=== PATIENT | female | born 1990 | race Caucasian/White ===

== ENCOUNTER 2017-02-14 05:26 | Outpatient (CLI) | payer OTHER ==
[2017-02-14 06:42] LABS: CHLORIDE,CL 109 mmol/L (98-110); SODIUM,NA 137 mmol/L (136-146)
== END 2017-02-14 06:55 | disposition home or self-care (01) ==
LOC: MW.OBCHECK 05:26 → MW.OB 05:30 → MW.OBCHECK 06:55
PROVIDERS: ATTEND Obstetrics & Gynecology
DX: R10.11 Right upper quadrant pain (principal); R51 Headache; R11.0 Nausea; Z34.03 Encounter for supervision of normal first pregnancy, third trimester
CPT/HCPCS: 36415; 59025; 80053; 81003; 84550; 85025

== ENCOUNTER 2017-02-20 21:03 | Outpatient (CLI) | payer OTHER ==
[2017-02-20] MEDS ORDERED: Sodium Chloride 0.9% 2.5 ML Syringe FLUSH PRN (21:12)
[2017-02-20] MEDS ORDERED: Sodium Chloride 0.9% 10 ML Syringe FLUSH PRN (21:12)
[2017-02-20] MEDS ORDERED: Lactated Ringers 1,000 ML IV SCH ×2 (21:15)
[2017-02-20] MEDS: Ondansetron 4 MG/2 ML SDV IVPUSH PRN (21:43)
[2017-02-20 22:01] LABS: CHLORIDE,CL 105 mmol/L (98-110); SODIUM,NA 138 mmol/L (136-146)
[2017-02-20] MEDS ORDERED: Dextrose 5%-0.9% NaCl 1,000 ML IV SCH (23:15)
[2017-02-21] MEDS ORDERED: Acetaminophen 500 MG Tab PO ONE (00:01)
[2017-02-21] MEDS ORDERED: Acetaminophen 500 MG Tab ONE (00:04)
[2017-02-21] MEDS: Ondansetron 4 MG/2 ML SDV IVPUSH PRN (00:40)
== END 2017-02-21 01:13 | disposition home or self-care (01) ==
LOC: MW.OBCHECK 21:03 → MW.OB 21:04 → MW.OBCHECK 02-21 01:13
PROVIDERS: ATTEND Obstetrics & Gynecology
DX: Z36 Encounter for antenatal screening of mother (principal)
CPT/HCPCS: 36415; 59025; 80053; 81001; 84550; 85025; 96361; 96374; 96376; A9270; J2405; J7042; J7120

== ENCOUNTER 2017-02-24 16:12 | Outpatient (CLI) | payer OTHER ==
--- NOTE | 2017-02-25 11:28 | US ---
EXAM DATE: 02/24/17 PATIENT'S AGE: 26 Patient: DAISY POLLARD Facility: [place], [place] Site . Site : 1990 Study: US OB Pelvis [id number] 5:58:10 PM Ordering Physician: Austin Ly Final Report: INDICATION: Decreased movement COMPARISON: none TECHNIQUE: Real time hartmann scale imaging of the fetus was performed as well as color Doppler and spectral Doppler analysis of the umbilical artery. Without non- stress testing. FINDINGS: Sonographic imaging demonstrates a single living intrauterine gestation. Fetus demonstrates a regular cardiac rate of 131 beats per minute. Fetus has a cephalic orientation. The amniotic fluid volume appears normal and there is a four-quadrant fluid volume index measurement of 16.5 cm. The fetus was active and demonstrated normal flexion and extension of the trunk and extremities. breathing, however, was not observed during the exam and two points were subtracted. IMPRESSION: Biophysical profile score 6 out of 8. Dictated by Brant Oleary MD @ Feb 24 2017 6:23PM (Electronic Signature) Report Signed by Proxy and Original Signed Document filed in the Medical Record. JAMAR
== END 2017-02-24 19:15 | disposition home or self-care (01) ==
LOC: MW.OBCHECK 16:12 → MW.OB 16:14 → MW.OBCHECK 19:15
PROVIDERS: ATTEND Obstetrics & Gynecology
DX: O36.8190 Decreased fetal movements, unspecified trimester, not applicable or unspecified (principal)
CPT/HCPCS: 59025; 76819; 76819-26; 81001

== ENCOUNTER 2017-03-09 20:51 | Outpatient (CLI) | payer OTHER | END 2017-03-09 22:05 | disposition home or self-care (01) | LOC: MW.OBCHECK 20:51 → MW.OB 20:53 → MW.OBCHECK 22:05 | PROVIDERS: ATTEND Obstetrics & Gynecology | DX: R03.0 Elevated blood-pressure reading, without diagnosis of hypertension (principal); R51 Headache; H53.9 Unspecified visual disturbance; Z3A.36 36 weeks gestation of pregnancy | CPT/HCPCS: 59025; 81003 ==

== ENCOUNTER 2017-03-19 08:02 | Inpatient (IN) | payer OTHER ==
[2017-03-19] MEDS ORDERED: Butorphanol 1 MG/ML SDV IVPUSH PRN (17:10)
[2017-03-19] MEDS ORDERED: Sodium Chloride 0.9% 10 ML Syringe FLUSH PRN (17:10)
[2017-03-19] MEDS ORDERED: Water For Irrigation,Sterile 1,000 ML Container IRR PRN (17:10)
[2017-03-19] MEDS ORDERED: Terbutaline 1 MG/ML SDV SUBCUT PRN (17:10)
[2017-03-19] MEDS ORDERED: Misoprostol 200 MCG Tab PO PRN (17:10)
[2017-03-19] MEDS ORDERED: Misoprostol 25 MCG (1/4 of 100 MCG) Tab VAG PRN (17:10)
[2017-03-19] MEDS ORDERED: Carboprost Tromethamine 250 MCG/1 ML Amp IM PRN (17:10)
[2017-03-19] MEDS ORDERED: Methylergonovine 0.2 MG/1 ML Amp IM PRN (17:10)
[2017-03-19] MEDS ORDERED: Nalbuphine 10 MG/1 ML Vial IVPUSH PRN (17:10)
[2017-03-19] MEDS ORDERED: Lidocaine 1% 50 ML MDV INJECT PRN (17:10)
[2017-03-19] MEDS ORDERED: Sodium Chloride 0.9% 2.5 ML Syringe FLUSH PRN (17:10)
[2017-03-19] MEDS ORDERED: Oxytocin/Lactated Ringers 30 UNIT/500 ML BAG IV SCH ×2 (17:15)
[2017-03-19] MEDS: Lactated Ringers 1,000 ML IV SCH (17:45)
[2017-03-19] MEDS: Misoprostol 25 MCG (1/4 of 100 MCG) Tab VAG SCH ×2 (18:13→22:10)
[2017-03-20] MEDS: Misoprostol 25 MCG (1/4 of 100 MCG) Tab VAG SCH (03:44)
[2017-03-20] MEDS ORDERED: Misoprostol 50 MCG (1/2 of 100 MCG) Tab VAG ONE (08:26)
[2017-03-20] MEDS: Lactated Ringers 1,000 ML IV SCH ×4 (17:29→22:49)
[2017-03-20] MEDS ORDERED: Ondansetron 4 MG/2 ML SDV IVPUSH PRN (19:38)
[2017-03-20] MEDS ORDERED: Ropivacaine 0.2% 2 MG/ML 20 ML SDV ONE (19:58)
[2017-03-20] MEDS ORDERED: fentaNYL 100 MCG/2 ML SDV ONE (19:58)
[2017-03-20] MEDS ORDERED: Ropivacaine HCl/PF 100 ML ONE (19:58)
--- NOTE | 2017-03-20 20:33 | PCM.PREANE ---
Preanesthetic Assessment - Anesthesia/Transfusion/Family Hx Anesthesia History: Prior Anesthesia Without Reaction Transfusion History: No Prior Transfusion(s) - Review of Systems Other: Reports: None - Physical Assessment Height: 5 ft 5 in Weight: 85.729 kg ASA Class: 2 Mental Status: Alert & Oriented x3 Airway Class: Mallampati = 1 Dentition: Reports: Normal Dentition Thyro-Mental Finger Breadths: 3 Mouth Opening Finger Breadths: 3 ROM/Head Extension: Full - Lab Values: Laboratory Last Values WBC 8.77 K/uL (4.0-11.0) 03/19/17 17:45 RBC 4.08 M/uL (4.30-5.90) L 03/19/17 17:45 Hgb 10.8 g/dL (12.0-16.0) L 03/19/17 17:45 Hct 34.0 % (36.0-46.0) L 03/19/17 17:45 MCV 83.3 fL (80.0-98.0) 03/19/17 17:45 MCH 26.5 pg (27.0-32.0) L 03/19/17 17:45 MCHC 31.8 g/dL (31.0-37.0) 03/19/17 17:45 RDW Std Deviation 44.7 fl (28.0-62.0) 03/19/17 17:45 RDW Coeff of Lucina 15 % (11.0-15.0) 03/19/17 17:45 Plt Count 203 K/uL (150-400) 03/19/17 17:45 MPV 10.50 fL (7.40-12.00) 03/19/17 17:45 Nucleated RBC % 0.0 /100WBC 03/19/17 17:45 Nucleated RBCs # 0 K/uL 03/19/17 17:45 Blood Type A POSITIVE 03/19/17 17:45 Antibody Screen NEGATIVE 03/19/17 17:45 - Allergies Allergies/Adverse Reactions: Allergies Allergy/AdvReac Type Severity Reaction Status Date / Time amoxicillin Allergy Hives Verified 02/25/15 09:37 - Blood Blood Available: Yes Product(s) Available: PRBC - Acknowledgements Anesthesia Type Planned: Epidural Pt an Appropriate Candidate for the Planned Anesthesia: Yes Alternatives and Risks of Anesthesia Discussed w Pt/Guardian: Yes Pt/Guardian Understands and Agrees with Anesthesia Plan: Yes PreAnesthesia Questionnaire HEENT History: Reports: Impaired 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: Dermatologic History: Reports: Eczema - Past Surgical History HEENT Surgical History: Reports: Oral surgery - SUBSTANCE USE Smoking Status *Q: Never Smoker Tobacco Use Within Last Twelve Months: No Second Hand Smoke Exposure: No Days Per Week of Alcohol Use: 1 Number of Drinks Per Day: 4 Total Drinks Per Week: 4 Recreational Drug Use History: No - HOME MEDS Home Medications: Home Meds LORazepam [Ativan] 1 tab PO Q8HR PRN 12/25/14 [History] - CURRENT (IN HOUSE) MEDS Current Meds: Current Medications Butorphanol Tartrate (Stadol) 1 mg IVPUSH Q1H PRN PRN Reason: Pain Carboprost Tromethamine (Hemabate Ds) 250 mcg IM ASDIRECTED PRN PRN Reason: Post Hemorrhage Lactated Ringer's (Ringers, Lactated) 1,000 mls @ 150 mls/hr IV ASDIRECTED KAILASH Last Admin: 03/20/17 17:29 Dose: 150 mls/hr Oxytocin/Lactated Ringer's (Pitocin In Lr 30 Units/500 Ml) 30 unit in 500 mls @ 2 mls/hr IV TITRATE KAILASH; 2 MUNITS/MIN PRN Reason: Protocol Last Titration: 03/20/17 18:07 Dose: 2 munits/min, 2 mls/hr Lidocaine HCl (Xylocaine 1%) 50 ml INJECT .ONCE PRN PRN Reason: Laceration repair Methylergonovine Maleate (Methergine) 0.2 mg IM ASDIRECTED PRN PRN Reason: Post Hemorrhage Misoprostol (Cytotec) 200 mcg PO .ONCE PRN PRN Reason: Post Hemorrhage Misoprostol (Cytotec) 25 mcg VAG .ONCE KAILASH Last Admin: 03/20/17 03:44 Dose: 25 mcg Misoprostol (Cytotec) 25 mcg VAG Q4H PRN PRN Reason: Cervical Ripening Stop: 03/20/17 21:11 Last Admin: 03/19/17 22:14 Dose: 25 mcg Ondansetron HCl (Zofran) 4 mg IVPUSH Q4H PRN PRN Reason: Nausea/Vomiting Sodium Chloride (Saline Flush) 10 ml FLUSH ASDIRECTED PRN PRN Reason: Keep Vein Open Sodium Chloride (Saline Flush) 2.5 ml FLUSH ASDIRECTED PRN PRN Reason: Keep Vein Open Sterile Water (Sterile Water For Irrigation) 1,000 ml IRR ASDIRECTED PRN PRN Reason: delivery Terbutaline Sulfate (Brethine) 0.25 mg SUBCUT ASDIRECTED PRN PRN Reason: Tacysystole Discontinued Medications Fentanyl (Sublimaze) Confirm Administered Dose 200 mcg .ROUTE .STK-MED ONE Stop: 03/20/17 19:59 Oxytocin/Lactated Ringer's (Pitocin In Lr 30 Units/500 Ml) 30 unit in 500 mls @ 999 mls/hr IV TITRATE KAILASH; 999 MUNITS/MIN PRN Reason: Protocol Stop: 03/19/17 17:46 Ropivacaine (Naropin 0.2%) Confirm Administered Dose 100 mls @ as directed .ROUTE .STK-MED ONE Stop: 03/20/17 19:59 Misoprostol (Cytotec) 50 mcg VAG ONETIME ONE Stop: 03/20/17 08:27 Nalbuphine HCl (Nubain) 10 mg IVPUSH Q1H PRN PRN Reason: Pain (severe 7-10) Stop: 03/19/17 19:11 Ropivacaine (Naropin 0.2%) Confirm Administered Dose 20 ml .ROUTE .STK-MED ONE Stop: 03/20/17 19:59
[2017-03-21] MEDS: Lactated Ringers 1,000 ML IV SCH (04:21)
[2017-03-21] MEDS ORDERED: fentaNYL 100 MCG/2 ML SDV ONE (04:41)
[2017-03-21] MEDS ORDERED: Ropivacaine HCl/PF 100 ML ONE (04:42)
[2017-03-21] MEDS ORDERED: Bupivacaine 0.5% 10 ML SDV ONE (05:30)
[2017-03-21] MEDS ORDERED: oxyCODONE 5 MG Tab PO PRN (08:37)
[2017-03-21] MEDS ORDERED: Witch Hazel Medicated Pads 40/Jar TOP PRN (08:37)
[2017-03-21] MEDS ORDERED: Bisacodyl 10 MG Supp RECTAL PRN (08:37)
[2017-03-21] MEDS ORDERED: Lanolin 100% Cream 7 GM Tube TOP PRN (08:37)
[2017-03-21] MEDS ORDERED: Benzocaine/Menthol 20%-0.5% Spray 78 GM Cannister TOP PRN (08:37)
[2017-03-21] MEDS: Ibuprofen 800 MG Tab PO PRN (16:59)
[2017-03-21] MEDS: Acetaminophen 500 MG Tab PO PRN (19:46)
[2017-03-21] MEDS: Docusate Sodium 100 MG Cap PO PRN (19:46)
--- NOTE | 2017-03-21 22:40 | PCM48HPAN ---
Post Anesthesia Note - EVALUATION WITHIN 48HRS OF ANESTHETIC Vital Signs in Normal Range: Yes Patient Participated in Evaluation: Yes Respiratory Function Stable: Yes Airway Patent: Yes Cardiovascular Function Stable: Yes Hydration Status Stable: Yes Pain Control Satisfactory: Yes Nausea and Vomiting Control Satisfactory: Yes Mental Status Recovered: Yes
[2017-03-22 07:25] VITALS: BP 123/76
--- NOTE | 2017-03-22 07:30 | PCM.PNPP ---
- General Info Date of Service: 03/22/17 Functional Status: Reports: pain controlled, tolerating diet, ambulating, urinating - Review of Systems General: Reports: No Symptoms HEENT: Reports: no symptoms Pulmonary: Reports: no symptoms Cardiovascular: Reports: No Symptoms Gastrointestinal: Reports: No symptoms Genitourinary: Reports: no symptoms Musculoskeletal: Reports: no symptoms Skin: Reports: no symptoms Neurological: Reports: No Symptoms Psychiatric: Reports: no symptoms - Patient Data Vital Signs - most recent: Last Vital Signs Temp 36.3 C 03/22/17 07:24 Pulse 87 03/22/17 07:24 Resp 16 03/22/17 07:24 BP 123/76 03/22/17 07:24 Pulse Ox 97 03/22/17 07:24 Weight - most recent: 85.729 kg Lab Results - last 24 hrs: Laboratory Results - last 24 hr 03/22/17 Range/Units 05:05 Hgb 9.1 L (12.0-16.0) g/dL Hct 28.9 L (36.0-46.0) % Med Orders - Current: Current Medications Acetaminophen (Tylenol Extra Strength) 500 mg PO Q4H PRN PRN Reason: Pain Last Admin: 03/21/17 19:46 Dose: 500 mg Benzocaine/Menthol (Dermoplast Pain Relief 20%-0.5% [place]) 78 gm TOP ASDIRECTED PRN PRN Reason: Perineal Comfort Measure Last Admin: 03/21/17 17:01 Dose: 1 spr Bisacodyl (Dulcolax) 10 mg RECTAL .ONCE PRN PRN Reason: Constipation Butorphanol Tartrate (Stadol) 1 mg IVPUSH Q1H PRN PRN Reason: Pain Carboprost Tromethamine (Hemabate Ds) 250 mcg IM ASDIRECTED PRN PRN Reason: Post Hemorrhage Docusate Sodium (Colace) 100 mg PO BID PRN PRN Reason: Constipation Last Admin: 03/21/17 19:46 Dose: 100 mg Emollient Ointment (Lansinoh Hpa) 0 gm TOP ASDIRECTED PRN PRN Reason: Sore Nipples Lactated Ringer's (Ringers, Lactated) 1,000 mls @ 150 mls/hr IV ASDIRECTED KAILASH Last Admin: 03/21/17 04:21 Dose: 150 mls/hr Oxytocin/Lactated Ringer's (Pitocin In Lr 30 Units/500 Ml) 30 unit in 500 mls @ 2 mls/hr IV TITRATE KAILASH; 2 MUNITS/MIN PRN Reason: Protocol Last Titration: 03/21/17 01:30 Dose: 10 munits/min, 10 mls/hr Ibuprofen (Motrin) 800 mg PO Q6H PRN PRN Reason: Pain Last Admin: 03/21/17 16:59 Dose: 800 mg Lidocaine HCl (Xylocaine 1%) 50 ml INJECT .ONCE PRN PRN Reason: Laceration repair Methylergonovine Maleate (Methergine) 0.2 mg IM ASDIRECTED PRN PRN Reason: Post Hemorrhage Misoprostol (Cytotec) 200 mcg PO .ONCE PRN PRN Reason: Post Hemorrhage Misoprostol (Cytotec) 25 mcg VAG .ONCE KAILASH Last Admin: 03/20/17 03:44 Dose: 25 mcg Ondansetron HCl (Zofran) 4 mg IVPUSH Q4H PRN PRN Reason: Nausea/Vomiting Oxycodone HCl (Oxycodone) 5 mg PO Q2H PRN PRN Reason: Pain Sodium Chloride (Saline Flush) 10 ml FLUSH ASDIRECTED PRN PRN Reason: Keep Vein Open Sodium Chloride (Saline Flush) 2.5 ml FLUSH ASDIRECTED PRN PRN Reason: Keep Vein Open Sterile Water (Sterile Water For Irrigation) 1,000 ml IRR ASDIRECTED PRN PRN Reason: delivery Terbutaline Sulfate (Brethine) 0.25 mg SUBCUT ASDIRECTED PRN PRN Reason: Tacysystole Witch Ayla (Tucks) 1 pad TOP ASDIRECTED PRN PRN Reason: comfort care Discontinued Medications Bupivacaine HCl (Sensorcaine-Mpf 0.5%) Confirm Administered Dose 10 ml .ROUTE .STK-MED ONE Stop: 03/21/17 05:31 Fentanyl (Sublimaze) Confirm Administered Dose 200 mcg .ROUTE .STK-MED ONE Stop: 03/20/17 19:59 Fentanyl (Sublimaze) Confirm Administered Dose 200 mcg .ROUTE .STK-MED ONE Stop: 03/21/17 04:42 Oxytocin/Lactated Ringer's (Pitocin In Lr 30 Units/500 Ml) 30 unit in 500 mls @ 999 mls/hr IV TITRATE KAILASH; 999 MUNITS/MIN PRN Reason: Protocol Stop: 03/19/17 17:46 Ropivacaine (Naropin 0.2%) Confirm Administered Dose 100 mls @ as directed .ROUTE .STK-MED ONE Stop: 03/20/17 19:59 Ropivacaine (Naropin 0.2%) Confirm Administered Dose 100 mls @ as directed .ROUTE .STK-MED ONE Stop: 03/21/17 04:43 Misoprostol (Cytotec) 25 mcg VAG Q4H PRN PRN Reason: Cervical Ripening Stop: 03/20/17 21:11 Last Admin: 03/19/17 22:14 Dose: 25 mcg Misoprostol (Cytotec) 50 mcg VAG ONETIME ONE Stop: 03/20/17 08:27 Nalbuphine HCl (Nubain) 10 mg IVPUSH Q1H PRN PRN Reason: Pain (severe 7-10) Stop: 03/19/17 19:11 Ropivacaine (Naropin 0.2%) Confirm Administered Dose 20 ml .ROUTE .STK-MED ONE Stop: 03/20/17 19:59 - Interaction Infant Disposition, : to Nursery Feeding: Attempted ; Nursed Fair/Poor Support Person: - Recovery Exam Fundal Tone: Firm Fundal Level: 1 Fingerbreadths Below Umbilicus Fundal Placement: Midline Lochia Amount: Small Lochia Color: Rubra/Red Perineum Description: Intact, Minimal Bruising/Swelling Episiotomy/Laceration: None Bladder Status: Voiding Urinary Elimination: Voided - Exam General: alert, oriented HEENT: Pupils equal Neck: supple Lungs: Normal respiratory effort Abdomen: soft, no tenderness, no distension Extremities: No: no edema (1+ equal bilaterally, no Homans sign.) Skin: warm, dry, intact Wound/Incisions: healing well Neurological: no new focal deficit Psy/Mental Status: alert, normal affect, normal mood - Problem List & Annotations (1) Vaginal delivery SNOMED Code(s): 316208521 Code(s): O80 - ENCOUNTER FOR FULL-TERM UNCOMPLICATED DELIVERY Status: Acute Current Visit: Yes - Problem List Review Problem List Initiated/Reviewed/Updated: Yes - Assessment Assessment:: PPD#1 after , stable, minimal lochia, and pumping. No complaints. - Plan Plan:: Dismiss to home today. Discharge instructions reviewed.
[2017-03-22] MEDS: Ibuprofen 800 MG Tab PO PRN (09:48)
[2017-03-22] MEDS: Docusate Sodium 100 MG Cap PO PRN (09:50)
[2017-03-22] MEDS: Acetaminophen 500 MG Tab PO PRN (11:51)
--- NOTE | 2017-03-25 06:32 | OR ---
SURGEON: Aliyah Avila DATE OF PROCEDURE: 03/21/2017 BRIEF PRE-DELIVERY HISTORY: This is a 26-year-old, G1, P0, presents to Labor and Delivery on March 19, 2017, for induction of labor for gestational hypertension with neurologic features though the patient did not have any significant proteinuria in excess of greater than or equal to 300 mg per 24 hour. The patient was 38 weeks and 2 days on admission, initially. The patient had previously been taken out of work the week prior secondary to concerns of swelling, headaches, hypertension that was already noted, but also headaches with visual changes significant for scotoma and just inherently not feeling well. 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 Upon admission to Labor and Delivery, the patient was noted to have mild range hypertension, no severe range blood pressures were noted. The patient had occasional headaches, but otherwise the patient was doing fine. The patient had a category 1 tracing. The patient's cervix on admission was closed, thick, and high. The patient was started on vaginal misoprostol 25 mcg every 3 hours. For a third dose, the patient to receive 50 mcg of vaginal misoprostol followed by one further dose of vaginal misoprostol at 25 mcg. The patient was noted to be selwyn every 2 minutes. The patient eventually underwent mechanical dilation with a Cook catheter balloon. The patient shortly thereafter became very uncomfortable and desired to have an epidural and epidural was placed. The patient was examined afterwards. The patient was only noted to be 3 cm. The Cook catheter balloon was removed. Amniotomy was performed for clear fluid and Pitocin was started. Pitocin was titrated to contractions of every 2 minutes. Several hours later, the patient was then re- examined and found to be only 4 cm, so an intrauterine pressure catheter was placed to know the strength of the contractions. Few hours later, the patient was examined by nursing staff and found to be 8 cm dilated. A few hours after that was re-examined and found to be completely dilated and +1 station. Of note, throughout the labor process, the patient had category 1 fluctuating to category 2, and back up to category 1 status. When the patient started maternal expulsive efforts after being noted to be at +2 station, the patient did have a category 2 tracing as it was significant for late decelerations. PREOPERATIVE DIAGNOSES: 1. Intrauterine at 38 weeks and 4 days. 2. Group B streptococcus negative. 3. Induction of labor for gestational hypertension with neurologic changes. POSTOPERATIVE DIAGNOSES: 1. Intrauterine at 38 weeks and 4 days. 2. Group B streptococcus negative. 3. Delivered status. 4. Left vaginal sidewall laceration. PROCEDURE PERFORMED: Spontaneous-assisted vaginal delivery. ANESTHESIA: Epidural. ESTIMATED BLOOD LOSS: 125 mL. FINDINGS: Viable female in vertex presentation with score of 6 and 9 at 1 and 5 minutes respectively and weight of 3170 g. Normal intact placenta with 3- vessel cord. Nuchal x2 was reduced at the perineum. Intact perineum. SPECIMEN REMOVED: Placenta. CONDITION: Postoperatively, the patient and tolerated the procedure well. COMPLICATIONS: None known. DESCRIPTION OF PROCEDURE: This female, under epidural anesthesia delivered a viable female infant with score of 6 and 9 at 1 and 5 minutes respectively and weight of 3170 g. Delivery was via spontaneous assisted vaginal delivery with in vertex presentation. Upon delivery of in vertex, the neck was checked and there was a nuchal to be reduced followed by second nuchal cord. With gentle downward traction, the anterior shoulder was delivered followed by the body. The was bulb suctioned at delivery and placed directly on mom's abdomen at request, but then quickly taken over to the baby warmer for supplemental oxygen. After delivery of , cord gas and cord blood were collected and sent for analysis after clamping off cord. Afterwards IV Pitocin was given as uterotonic to prevent excessive maternal blood loss and to help expel the placenta. After signs of placental separation of being a gush of blood, the fundal massage was completed along with traction on the umbilical cord and a normal intact placenta with 3-vessel cord was delivered. After delivery of infant and placenta, the vagina, perineum, and rectum were explored. The patient had a small right vaginal sidewall laceration and the patient had a longer approximately 3.5 cm more superficial vaginal wall laceration on the left. Both lacerations were noted to be hemostatic and easily fell together without tenting the vaginal vault. The patient's perineum was noted to be intact. As these areas were not bleeding, there was no need for sutures. The lower uterine segment and vagina were cleared of all clots and debris. The patient was cleansed, pads were changed, the bed was returned to functional status. The patient and tolerated the procedure well. Sponge, lap, needle, and instrument counts were correct. ESTRELLA / SG /[id number] MTDD
== END 2017-03-22 14:15 | disposition home or self-care (01) | DRG 775 ==
LOC: MW.OB 08:02 → OBSVTOIN 03-21 08:02 → MW.OB 03-21 14:01
PROVIDERS: ADMIT Obstetrics & Gynecology; ATTEND Obstetrics & Gynecology
PROC: 10E0XZZ Delivery of Products of Conception, External Approach (ICD-10-PCS; principal; 2017-03-21)
PROC: 3E0P7GC Introduction of Other Therapeutic Substance into Female Reproductive, Via Natural or Artificial Opening (ICD-10-PCS; 2017-03-21)
PROC: 10907ZC Drainage of Amniotic Fluid, Therapeutic from Products of Conception, Via Natural or Artificial Opening (ICD-10-PCS; 2017-03-21)
DX: O13.4 Gestational [pregnancy-induced] hypertension without significant proteinuria, complicating childbirth (principal); O69.1XX0 Labor and delivery complicated by cord around neck, with compression, not applicable or unspecified; Z3A.38 38 weeks gestation of pregnancy; Z37.0 Single live birth
CPT/HCPCS: 36415; 59025; 59200; 85014; 85018; 85027; 86850; 86900; 86901; A9270-GY; J2795; J3010; J7120

== ENCOUNTER 2017-03-23 23:22 | Emergency (ER) | payer OTHER ==
[2017-03-23] MEDS ORDERED: Sodium Chloride 0.9% 10 ML Syringe FLUSH PRN (23:31)
[2017-03-23] MEDS ORDERED: Sodium Chloride 0.9% 1,000 ML IV ONE (23:31)
[2017-03-23] MEDS ORDERED: Sodium Chloride 0.9% 2.5 ML Syringe FLUSH PRN (23:31)
--- NOTE | 2017-03-23 23:37 | EDM.PDOC ---
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 She denies urinary symptoms denies trauma Review of systems: As per history of present illness and below otherwise all systems reviewed and negative. Past medical history: As per history of present illness and as reviewed below otherwise noncontributory. Surgical history: As per history of present illness and as reviewed below otherwise noncontributory. Social history: No reported history of drug or alcohol abuse. Family history: As per history of present illness and as reviewed below otherwise noncontributory. Physical exam: HEENT: Atraumatic, normocephalic, pupils reactive, negative for conjunctival pallor or scleral icterus, mucous membranes moist, throat clear, neck supple, nontender, trachea midline. Lungs: Clear to auscultation, breath sounds equal bilaterally, chest nontender. Heart: S1S2, regular, negative for clicks, rubs, or JVD. Abdomen: Soft, nondistended, nontender. Negative for masses or hepatosplenomegaly. Negative for costovertebral tenderness. Pelvis: Stable nontender. Genitourinary: Deferred. Rectal: Deferred. Extremities: Atraumatic, negative for cords or calf pain. Neurovascular unremarkable. Neuro: Awake, alert, oriented. Cranial nerves II through XII unremarkable. Cerebellum unremarkable. Motor and sensory unremarkable throughout. Exam nonfocal. Back: No vertebral body or point tenderness no erythema no warmth no pain Diagnostics: CBC CMP CPK EKG chest x-ray blood culture x2 UA urine culture lactic acid Therapeutics: saline 1 L bolus Impression: #1 history of fever #2 2 days #3 bilateral thigh pain Definitive disposition and diagnosis as appropriate pending reevaluation and review of above. - Related Data Allergies Allergy/AdvReac Type Severity Reaction Status Date / Time amoxicillin Allergy Hives Verified 03/23/17 23:40 Home Meds: Home Meds . 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: Dermatologic History: Reports: Eczema - Past Surgical History HEENT Surgical History: Reports: Oral surgery Social & Family History - Family History HEENT: Reports: Glaucoma, Hearing impairment, Impaired vision Cardiac: Reports: Hypertension, SD OBGYN: Reports: Neurological: Reports: MS Endocrine/Metabolic: Reports: Diabetes, type II Oncologic: Reports: Colon - Tobacco Use Smoking Status *Q: Never Smoker Second Hand Smoke Exposure: No - Caffeine Use Caffeine Use: Reports: Coffee - Alcohol Use Days Per Week of Alcohol Use: 1 Number of Drinks Per Day: 4 Total Drinks Per Week: 4 - Recreational Drug Use Recreational Drug Use: No ED ROS GENERAL - Review of Systems Review Of Systems: ROS reveals no pertinent complaints other than HPI. ED EXAM, GENERAL - Physical Exam Exam: See Below (See dictation) Course - Vital Signs Last Recorded V/S: Last Vital Signs Temp 36.7 C 03/24/17 03:28 Pulse 155 H 03/24/17 03:28 Resp 16 03/24/17 03:28 BP 114/47 L 03/24/17 03:28 Pulse Ox 97 03/24/17 03:28 - Orders/Labs/Meds Orders: Active Orders 24 hr Category Date Time Status Cardiac Monitoring [RC] . DIRECTED Care 03/23/17 23:30 Active EKG Documentation Completion [RC] STAT Care 03/23/17 23:30 Active Pulse Oximetry [RC] ASDIRECTED Care 03/23/17 23:30 Active Chest 2V [CR] Stat Exams 03/23/17 23:31 Taken CULTURE BLOOD [BC] Stat Lab 03/23/17 23:45 Results CULTURE URINE [RM] Stat Lab 03/24/17 01:50 Received Sodium Chloride 0.9% [Saline Flush] Med 03/23/17 23:31 Active 10 ml FLUSH ASDIRECTED PRN Sodium Chloride 0.9% [Saline Flush] Med 03/23/17 23:31 Active 2.5 ml FLUSH ASDIRECTED PRN Blood Culture x2 Reflex Set [OM.PC] Stat Oth 03/23/17 23:30 Ordered Saline Lock Insert [OM.PC] Stat Ot 03/23/17 23:30 Ordered Medication Orders Sodium Chloride (Saline Flush) 10 ml FLUSH ASDIRECTED PRN PRN Reason: Keep Vein Open Last Admin: 03/24/17 01:47 Dose: 10 ml Sodium Chloride (Saline Flush) 2.5 ml FLUSH ASDIRECTED PRN PRN Reason: Keep Vein Open Last Admin: 03/24/17 01:47 Dose: 2.5 ml Labs: Laboratory Tests 03/23/17 03/23/17 03/23/17 Range/Units 23:45 23:45 23:45 WBC 6.25 (4.0-11.0) K/uL RBC 3.66 L (4.30-5.90) M/uL Hgb 9.6 L (12.0-16.0) g/dL Hct 30.0 L (36.0-46.0) % MCV 82.0 (80.0-98.0) fL MCH 26.2 L (27.0-32.0) pg MCHC 32.0 (31.0-37.0) g/dL RDW Std Deviation 45.3 (28.0-62.0) fl RDW Coeff of Lucina 15 (11.0-15.0) % Plt Count 135 L (150-400) K/uL MPV 9.50 (7.40-12.00) fL Add Manual Diff YES Neutrophils % (Manual) 70 (48.0-80.0) % Band Neutrophils % 23 % Lymphocytes % (Manual) 4 L (16.0-40.0) % Monocytes % (Manual) 1 (0.0-15.0) % Metamyelocytes % 2 % Nucleated RBC % 0.0 /100WBC Absolute Seg Neuts 4.4 Band Neutrophils # 1.4 Lymphocytes # (Manual) 0.3 Monocytes # (Manual) 0.1 Absolute Metamyelocyte 0.1 Nucleated RBCs # 0 K/uL INR 1.23 H (0.86-1.11) Lactate 2.2 H (0.20-2.00) mmol/L Sodium (136-146) mmol/L Potassium (3.5-5.1) mmol/L Chloride (98-110) mmol/L Carbon Dioxide (21-31) mmol/L BUN (6.0-23.0) mg/dL Creatinine (0.6-1.5) mg/dL Est Cr Clr Drug Dosing Estimated GFR (MDRD) ml/min Glucose (60-110) mg/dL Calcium (8.8-10.8) mg/dL Total Bilirubin (0.1-1.5) mg/dL AST (5-40) IU/L ALT (8-54) IU/L Alkaline Phosphatase (40-150) Creatine Kinase (9-236) IU/L Total Protein (6.0-8.0) g/dL Albumin (3.5-5.0) g/dL Globulin (2.0-3.5) g/dL Albumin/Globulin Ratio (1.3-2.8) Urine Color Urine Appearance Urine pH (5.0-8.0) Ur Specific [place] (1.001-1.035) Urine Protein (NEGATIVE) mg/dL Urine Glucose (UA) (NEGATIVE) mg/dL Urine Ketones (NEGATIVE) mg/dL Urine Occult Blood (NEGATIVE) Urine Nitrite (NEGATIVE) Urine Bilirubin (NEGATIVE) Urine Ictotest Urine Urobilinogen (<2.0) EU/dL Ur Leukocyte Esterase (NEGATIVE) Urine RBC (0-2/HPF) Urine WBC (0-5/HPF) Ur Epithelial Cells (NONE-FEW) Urine Bacteria (NEGATIVE) 03/23/17 03/24/17 Range/Units 23:45 01:50 WBC (4.0-11.0) K/uL RBC (4.30-5.90) M/uL Hgb (12.0-16.0) g/dL Hct (36.0-46.0) % MCV (80.0-98.0) fL MCH (27.0-32.0) pg MCHC (31.0-37.0) g/dL RDW Std Deviation (28.0-62.0) fl RDW Coeff of Lucina (11.0-15.0) % Plt Count (150-400) K/uL MPV (7.40-12.00) fL Add Manual Diff Neutrophils % (Manual) (48.0-80.0) % Band Neutrophils % % Lymphocytes % (Manual) (16.0-40.0) % Monocytes % (Manual) (0.0-15.0) % Metamyelocytes % % Nucleated RBC % /100WBC Absolute Seg Neuts Band Neutrophils # Lymphocytes # (Manual) Monocytes # (Manual) Absolute Metamyelocyte Nucleated RBCs # K/uL INR (0.86-1.11) Lactate (0.20-2.00) mmol/L Sodium 138 (136-146) mmol/L Potassium 3.5 (3.5-5.1) mmol/L Chloride 107 (98-110) mmol/L Carbon Dioxide 19 L (21-31) mmol/L BUN 14 (6.0-23.0) mg/dL Creatinine 0.7 (0.6-1.5) mg/dL Est Cr Clr Drug Dosing TNP Estimated GFR (MDRD) > 60.0 ml/min Glucose 100 (60-110) mg/dL Calcium 8.2 L (8.8-10.8) mg/dL Total Bilirubin 1.0 (0.1-1.5) mg/dL AST 147 H (5-40) IU/L ALT 92 H (8-54) IU/L Alkaline Phosphatase 76 (40-150) Creatine Kinase 105 (9-236) IU/L Total Protein 5.6 L (6.0-8.0) g/dL Albumin 2.8 L (3.5-5.0) g/dL Globulin 2.8 (2.0-3.5) g/dL Albumin/Globulin Ratio 1.0 L (1.3-2.8) Urine Color DARK YELLOW Urine Appearance SLT CLOUDY Urine pH 5.5 (5.0-8.0) Ur Specific [place] 1.020 (1.001-1.035) Urine Protein 100 (NEGATIVE) mg/dL Urine Glucose (UA) NEGATIVE (NEGATIVE) mg/dL Urine Ketones NEGATIVE (NEGATIVE) mg/dL Urine Occult Blood LARGE H (NEGATIVE) Urine Nitrite NEGATIVE (NEGATIVE) Urine Bilirubin SMALL H (NEGATIVE) Urine Ictotest NEGATIVE Urine Urobilinogen 0.2 (<2.0) EU/dL Ur Leukocyte Esterase MODERATE (NEGATIVE) Urine RBC 20-25 (0-2/HPF) Urine WBC 60-70 (0-5/HPF) Ur Epithelial Cells FEW (NONE-FEW) Urine Bacteria 1+ H (NEGATIVE) Meds: Medications Generic Name Dose Route Start Last Admin Trade Name Freq PRN Reason Stop Dose Admin Sodium Chloride 10 ml 03/23/17 23:31 03/24/17 01:47 Saline Flush FLUSH 10 ml ASDIRECTED PRN Administration Keep Vein Open Sodium Chloride 2.5 ml 03/23/17 23:31 03/24/17 01:47 Saline Flush FLUSH 2.5 ml ASDIRECTED PRN Administration Keep Vein Open Discontinued Medications Generic Name Dose Route Start Last Admin Trade Name Alierza PRN Reason Stop Dose Admin Sodium Chloride 1,000 mls @ 999 mls/hr 03/23/17 23:31 03/23/17 23:51 Normal Saline IV 03/24/17 00:31 999 mls/hr STAT ONE Administration Sodium Chloride 1,000 mls @ 999 mls/hr 03/24/17 01:46 03/24/17 01:48 Normal Saline IV 03/24/17 02:46 999 mls/hr STAT ONE Administration Departure - Departure Time of Disposition: 03:35 Disposition: Home, Self-Care 01 Condition: good Clinical Impression: Myalgia, UTI (urinary tract infection) Referrals: Aliyah Avila MD [Primary Care Provider] - Forms: ED Department Discharge Additional Instructions: The following information is given to patients seen in the emergency department who are being discharged to home. This information is to outline your options for follow-up care. We provide all patients seen in our emergency department with a follow-up referral. The need for follow-up, as well as the timing and circumstances, are variable depending upon the specifics of your emergency department visit. If you don't have a primary care physician on staff, we will provide you with a referral. We always advise you to contact your personal physician following an emergency department visit to inform them of the circumstance of the visit and for follow-up with them and/or the need for any referrals to a consulting specialist. The emergency department will also refer you to a specialist when appropriate. This referral assures that you have the opportunity for followup care with a specialist. All of these measure are taken in an effort to provide you with optimal care, which includes your followup. Under all circumstances we always encourage you to contact your private physician who remains a resource for coordinating your care. When calling for followup care, please make the office aware that this follow-up is from your recent emergency room visit. If for any reason you are refused follow-up, please contact the [facility] emergency department at and asked to speak to the emergency department charge nurse. 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 DIRECTED EKG Documentation Completion [RC] STAT Pulse Oximetry [RC] ASDIRECTED Blood Culture x2 Reflex Set [OM.PC] Stat Saline Lock Insert [OM.PC] Stat 03/23/17 23:31 Chest 2V [CR] Stat Sodium Chloride 0.9% [Saline Flush] 10 ml FLUSH ASDIRECTED PRN Sodium Chloride 0.9% [Saline Flush] 2.5 ml FLUSH ASDIRECTED PRN 03/23/17 23:45 CULTURE BLOOD [BC] Stat 03/24/17 01:50 CULTURE URINE [RM] Stat - Assessment/Plan Last 24 Hours: My Active Orders 03/23/17 23:30 Cardiac Monitoring [RC] . DIRECTED EKG Documentation Completion [RC] STAT Pulse Oximetry [RC] ASDIRECTED Blood Culture x2 Reflex Set [OM.PC] Stat Saline Lock Insert [OM.PC] Stat 03/23/17 23:31 Chest 2V [CR] Stat Sodium Chloride 0.9% [Saline Flush] 10 ml FLUSH ASDIRECTED PRN Sodium Chloride 0.9% [Saline Flush] 2.5 ml FLUSH ASDIRECTED PRN 03/23/17 23:45 CULTURE BLOOD [BC] Stat 03/24/17 01:50 CULTURE URINE [RM] Stat
[2017-03-24 00:30] LABS: CHLORIDE,CL 107 mmol/L (98-110); SODIUM,NA 138 mmol/L (136-146)
[2017-03-24] MEDS ORDERED: Sodium Chloride 0.9% 1,000 ML IV ONE (01:46)
[2017-03-24 03:28] VITALS: BP 114/47
--- NOTE | 2017-03-24 14:04 | CR ---
EXAM DATE: 03/23/17 PATIENT'S AGE: 26 Patient: DAISY POLLARD Facility: [place], [place] Site . Site : 1990 Study: XRay Chest [id number]/1/2017 12:22:04 AM Ordering Physician: Hannah Guo Final Report: HISTORY: Centralized chest tightness. FINDINGS: PA and lateral chest radiograph demonstrates a normal cardiac silhouette. Pulmonary vasculature is free cephalization. There are low lung volumes present. No lobar consolidation or pleural effusion is seen. Bony structures are normal for age. IMPRESSION: No acute cardiopulmonary disease. Dictated by Shannan Borrero MD @ 03/24/2017 12:24:01 AM Dictated by: Shannan Borrero MD @ 03/24/2017 00:24:06 (Electronic Signature) Report Signed by Proxy. [facility]
== END 2017-03-24 03:47 | disposition home or self-care (01) ==
LOC: MW.ED 23:22
DX: O86.20 Urinary tract infection following delivery, unspecified (principal); M79.651 Pain in right thigh; M79.652 Pain in left thigh; Z88.1 Allergy status to other antibiotic agents; Z98.890 Other specified postprocedural states
CPT/HCPCS: 71020; 80053; 81001; 82550; 83605; 85025; 85610; 87040; 87077; 87086; 87186; 87804; 93005; 96360; 96361; 99284; J7040; 99283

== ENCOUNTER 2017-03-24 13:25 | Inpatient (IN) | payer OTHER ==
[2017-03-24] MEDS ORDERED: Sodium Chloride 0.9% 10 ML Syringe FLUSH PRN (13:33)
[2017-03-24] MEDS ORDERED: Sodium Chloride 0.9% 1,000 ML IV ONE ×2 (13:33→13:47)
[2017-03-24] MEDS ORDERED: Sodium Chloride 0.9% 2.5 ML Syringe FLUSH PRN (13:33)
--- NOTE | 2017-03-24 13:38 | EDM.PDOC ---
[id number] AMBULANCE Time Seen by Provider: 03/24/17 13:32 Source of Information: Reports: Patient History Limitations: Reports: No Limitations - History of Present Illness INITIAL COMMENTS - FREE TEXT/NARRATIVE: HISTORY AND PHYSICAL: History of present illness: [26-year-old female 3 days status post spontaneous vaginal delivery without complication now presents emergency department complaining of feeling ill. Recent fevers. Patient was seen overnight and was diagnosed with urinary tract infection and prescribed outpatient antibiotics. Blood cultures were drawn last night and there result of the Gram stain this morning was both cultures positive for gram-positive cocci in chains. She was called at home and instructed to return to the emergency department for reevaluation and further treatment as needed. Patient was unable to fill her prescription and felt more ill and generally weak this morning. Patient denies pelvic pain or any change in her mild bleeding. She has no abnormal vaginal discharge. Patient does not have a cough or productive cough. No chest pain or pleuritic pain. Denies shortness of breath. Denies skin lesions. Tachycardic on arrival in ED. Patient denies any sore throat or recent strep diagnosis. Review of systems: As per history of present illness and below otherwise all systems reviewed and negative. Past medical history: As per history of present illness and as reviewed below otherwise noncontributory. Surgical history: As per history of present illness and as reviewed below otherwise noncontributory. Social history: No reported history of drug or alcohol abuse. Family history: As per history of present illness and as reviewed below otherwise noncontributory. Physical exam: HEENT: Atraumatic, normocephalic, pupils reactive, negative for conjunctival pallor or scleral icterus, mucous membranes moist, throat clear, neck supple, nontender, trachea midline. Lungs: Clear to auscultation, breath sounds equal bilaterally, chest nontender. No wheezes rales rubs or rhonchi. Normal pulse ox on room air Heart: S1S2, tachycardia at 151, regular, negative for clicks, rubs, or JVD. Abdomen: Soft, nondistended, positive right CVA tenderness. Mild right upper quadrant tenderness, no guarding or rebound, negative Dumont's sign. Negative for masses or hepatosplenomegaly. Negative for left costovertebral tenderness. Pelvis: Stable . Appropriate minimal pelvic tenderness given state of several days Genitourinary: Deferred. Rectal: Deferred. Extremities: Atraumatic, negative for cords or calf pain. Neurovascular unremarkable. Neuro: Awake, alert, oriented. Cranial nerves grossly unremarkable. Cerebellum unremarkable. Motor and sensory unremarkable throughout. Exam nonfocal. Diagnostics: [EKG normal sinus tachycardia at 147 normal axis no STEMI nonspecific ST findings ] Portable chest x-ray interpreted by me , no acute disease, report reviewed CBC with toxic granulocytes consistent with sepsis. Lactate elevated. Patient with severe metabolic acidosis. Therapeutics: [IV fluids administered, blood cultures and lactate drawn, broad-spectrum antibiotic coverage initiated for coverage of presumed sirs/ sepsis Impression: [] Plan: [26-year-old female tachycardic with recent positive UA and clinical evidence suggesting Sirs and sepsis. Gram stain and blood cultures from last night For gram-positive cocci in chains. Recent fevers per patient. Patient with no evidence of streptococcal pharyngitis clinically. Patient states she's had no pelvic pain except for her mild soreness which has been improving. Urinalysis from last p.m. appears positive for UTI. Urinalysis and Urine culture pending from straight catheter specimen today. Will CT to rule out infected stone given the patient is critically ill with possible pyelonephritis. After initial evaluation, case discussed with confectionery laboratory manager for Dr. Avila (the patient's [employer] doctor.) She is aware of history and findings and agrees with inpatient admission to the ICU to the service of the hospitalist and they will provide [employer] consultation. Patient's pulse initially improved with fluids. Administration of broad-spectrum antibiotic coverage in progress. Case discussed with Dr. Torres the hospitalist confectionery laboratory manager who is aware of history and findings of patient's critical illness and accepts patient for inpatient admission to the ICU. On reevaluation prior to transfer to floor patient with persistent tachycardia. She states she feels slightly improved however she is evolving worsening edema the hands and feet. IV fluids stopped. She denies any new symptoms. Straight catheter urinalysis results returned negative for infection. Results reevaluated given that presumed urinary tract infection was not present. Case discussed again with , [employer]. We reviewed all results again she is aware of my concern regarding possible evolving cardiomyopathy and potential for heellp syndrome. She clarified that cardiology has admitted patients to our ICU with cardiomyopathy and provided evaluation and care for them here so this diagnosis would not preclude patient' s admission to our ICU. Patient has not been hypertensive and has no proteinuria but mom, who is now present, commented that she did have some gestational hypertension as well as some proteinuria during , tho she was never diagnosed with preeclampsia. Patient transported to the ICU bed during this conversation. Dr. Polanco has communicated details regarding the patient's critical illness to Dr. Avila who will provide emergent consultation and see the patient in the ICU. Case also discussed again with Dr. Torres the hospitalist. He was also made aware of these findings and he will place stat consult to cardiology, Dr. Eugenio Torres is present in the ICU with the patient, he is aware of my concerns regarding her critical illness and all the results obtained so far and he has assumed care for further treatment Definitive disposition and diagnosis as appropriate pending reevaluation and review of above. Critical care 73 minutes abd Pain Score (Numeric/FACES): 8 - Related Data Allergies Allergy/AdvReac Type Severity Reaction Status Date / Time amoxicillin Allergy Hives Verified 03/23/17 23:40 sulfamethoxazole Allergy Vomiting Verified 03/24/17 16:55 [From Bactrim] trimethoprim [From Bactrim] Allergy Vomiting Verified 03/24/17 16:55 Home Meds: Home Meds . [No Known Home Meds] 03/23/17 [History] Past Medical History - Past Health History Medical/Surgical History: Denies Medical/Surgical History HEENT History: Reports: Impaired Vision [employer] History: Reports: Dermatologic History: Reports: Eczema - Past Surgical History HEENT Surgical History: Reports: Oral Surgery Social & Family History - Family History Family Medical History: Noncontributory HEENT: Reports: Glaucoma, Hearing Impairment, Impaired Vision Cardiac: Reports: Hypertension, [place] OBGYN: Reports: Neurological: Reports: [place] Endocrine/Metabolic: Reports: Diabetes, type II Oncologic: Reports: Colon - Tobacco Use Smoking Status *Q: Never Smoker Second Hand Smoke Exposure: No - Caffeine Use Caffeine Use: Reports: Coffee - Alcohol Use Days Per Week of Alcohol Use: 1 Number of Drinks Per Day: 4 Total Drinks Per Week: 4 - Recreational Drug Use Recreational Drug Use: No ED ROS GENERAL - Review of Systems Review Of Systems: See Below (History of present illness) ED EXAM, GENERAL - Physical Exam Exam: See Below (History of present illness) Course - Vital Signs Last Recorded V/S: Last Vital Signs Temp 38.3 C H 03/25/17 21:28 Pulse 166 H 03/25/17 17:38 Resp 27 H 03/25/17 21:28 BP 113/65 03/25/17 21:28 Pulse Ox 92 L 03/25/17 21:00 - Orders/Labs/Meds Labs: Laboratory Tests 03/24/17 03/24/17 03/24/17 Range/Units 13:40 14:00 14:00 WBC 5.66 (4.0-11.0) K/uL RBC 3.49 L (4.30-5.90) M/uL Hgb 9.1 L (12.0-16.0) g/dL Hct 28.4 L (36.0-46.0) % MCV 81.4 (80.0-98.0) fL MCH 26.1 L (27.0-32.0) pg MCHC 32.0 (31.0-37.0) g/dL RDW Std Deviation 46.6 (28.0-62.0) fl RDW Coeff of Lucina 16 H (11.0-15.0) % Plt Count 133 L (150-400) K/uL MPV 10.00 (7.40-12.00) fL Add Manual Diff YES Neutrophils % (Manual) 56 (48.0-80.0) % Band Neutrophils % 29 % Lymphocytes % (Manual) 10 L (16.0-40.0) % Monocytes % (Manual) 3 (0.0-15.0) % Eosinophils % (Manual) 1 (0.0-7.0) % Basophils % (Manual) 1 (0.0-1.5) % Nucleated RBC % 0.0 /100WBC Absolute Seg Neuts 3.2 Band Neutrophils # 1.6 Lymphocytes # (Manual) 0.6 Monocytes # (Manual) 0.2 Eosinophils # (Manual) 0.1 Basophils # (Manual) 0 Nucleated RBCs # 0 K/uL Toxic Granulation 2+ MODERATE Lactate (0.20-2.00) mmol/L Sodium 140 (136-146) mmol/L Potassium 3.6 (3.5-5.1) mmol/L Chloride 112 H (98-110) mmol/L Carbon Dioxide 12 L (21-31) mmol/L BUN 14 (6.0-23.0) mg/dL Creatinine 0.8 (0.6-1.5) mg/dL Est Cr Clr Drug Dosing 94.90 mL/min Estimated GFR (MDRD) > 60.0 ml/min Glucose 63 (60-110) mg/dL Calcium 8.0 L (8.8-10.8) mg/dL Total Bilirubin 1.1 (0.1-1.5) mg/dL AST 143 H (5-40) IU/L ALT 98 H (8-54) IU/L Alkaline Phosphatase 87 (40-150) Troponin I (0.0-0.29) NG/ML Total Protein 5.0 L (6.0-8.0) g/dL Albumin 2.3 L (3.5-5.0) g/dL Globulin 2.7 (2.0-3.5) g/dL Albumin/Globulin Ratio 0.9 L (1.3-2.8) Urine Color Cancelled Urine Appearance Cancelled Urine pH Cancelled Ur Specific [place] Cancelled Urine Protein Cancelled Urine Glucose (UA) Cancelled Urine Ketones Cancelled Urine Occult Blood Cancelled Urine Nitrite Cancelled Urine Bilirubin Cancelled Urine Ictotest Cancelled Urine Urobilinogen Cancelled Ur Leukocyte Esterase Cancelled Urine RBC Cancelled Urine WBC Cancelled Ur Epithelial Cells Cancelled Ur Squamous Epith Cells Cancelled Ur Renal Epithelial Cell Cancelled Calcium Oxalate Crystal Cancelled Uric Acid Crystals Cancelled Triple Phos Crystals Cancelled Other Crystals Cancelled Amorphous Sediment Cancelled Urine Bacteria Cancelled Hyaline Casts Cancelled Fine Granular Casts Cancelled Coarse Granular Casts Cancelled Waxy Casts Cancelled RBC Casts Cancelled WBC Casts Cancelled Urine Mucus Cancelled Urine Other Cancelled Urine Trichomonas Cancelled Urine Yeast Cancelled Urine Sperm Cancelled Ur Oval Fat Bodies Cancelled Urinalysis Comment Cancelled 03/24/17 03/24/17 Range/Units 14:00 14:00 WBC (4.0-11.0) K/uL RBC (4.30-5.90) M/uL Hgb (12.0-16.0) g/dL Hct (36.0-46.0) % MCV (80.0-98.0) fL MCH (27.0-32.0) pg MCHC (31.0-37.0) g/dL RDW Std Deviation (28.0-62.0) fl RDW Coeff of Lucina (11.0-15.0) % Plt Count (150-400) K/uL MPV (7.40-12.00) fL Add Manual Diff Neutrophils % (Manual) (48.0-80.0) % Band Neutrophils % % Lymphocytes % (Manual) (16.0-40.0) % Monocytes % (Manual) (0.0-15.0) % Eosinophils % (Manual) (0.0-7.0) % Basophils % (Manual) (0.0-1.5) % Nucleated RBC % /100WBC Absolute Seg Neuts Band Neutrophils # Lymphocytes # (Manual) Monocytes # (Manual) Eosinophils # (Manual) Basophils # (Manual) Nucleated RBCs # K/uL Toxic Granulation Lactate 3.5 H (0.20-2.00) mmol/L Sodium (136-146) mmol/L Potassium (3.5-5.1) mmol/L Chloride (98-110) mmol/L Carbon Dioxide (21-31) mmol/L BUN (6.0-23.0) mg/dL Creatinine (0.6-1.5) mg/dL Est Cr Clr Drug Dosing mL/min Estimated GFR (MDRD) ml/min Glucose (60-110) mg/dL Calcium (8.8-10.8) mg/dL Total Bilirubin (0.1-1.5) mg/dL AST (5-40) IU/L ALT (8-54) IU/L Alkaline Phosphatase (40-150) Troponin I < 0.10 (0.0-0.29) NG/ML Total Protein (6.0-8.0) g/dL Albumin (3.5-5.0) g/dL Globulin (2.0-3.5) g/dL Albumin/Globulin Ratio (1.3-2.8) Urine Color Urine Appearance Urine pH Ur Specific [place] Urine Protein Urine Glucose (UA) Urine Ketones Urine Occult Blood Urine Nitrite Urine Bilirubin Urine Ictotest Urine Urobilinogen Ur Leukocyte Esterase Urine RBC Urine WBC Ur Epithelial Cells Ur Squamous Epith Cells Ur Renal Epithelial Cell Calcium Oxalate Crystal Uric Acid Crystals Triple Phos Crystals Other Crystals Amorphous Sediment Urine Bacteria Hyaline Casts Fine Granular Casts Coarse Granular Casts Waxy Casts RBC Casts WBC Casts Urine Mucus Urine Other Urine Trichomonas Urine Yeast Urine Sperm Ur Oval Fat Bodies Urinalysis Comment Meds: Medications Discontinued Medications Generic Name Dose Route Start Last Admin Trade Name Alireza PRN Reason Stop Dose Admin Acetaminophen 650 mg 03/24/17 21:35 03/25/17 15:38 Tylenol PO 650 mg Q6H PRN Administration Temperature Diphenhydramine HCl 50 mg 03/25/17 15:19 03/25/17 15:36 Benadryl IVPUSH 03/25/17 15:20 50 mg ONETIME ONE Administration Enoxaparin Sodium 40 mg 03/24/17 21:00 03/24/17 20:36 Lovenox SUBCUT 40 mg Q12HR KAILASH Administration Enoxaparin Sodium 40 mg 03/25/17 21:00 03/25/17 20:09 Lovenox SUBCUT 40 mg Q24H KAILASH Administration Furosemide 40 mg 03/24/17 18:00 03/24/17 18:15 Lasix IVPUSH 03/24/17 18:01 40 mg NOW ONE Administration Furosemide 40 mg 03/25/17 08:17 03/25/17 08:30 Lasix IVPUSH 03/25/17 08:18 40 mg NOW ONE Administration Gentamicin Sulfate 132 mg 03/24/17 18:15 03/25/17 02:55 Gentamicin IV 132 mg Q8H KAILASH Administration Hydromorphone HCl 0.5 mg 03/24/17 14:43 03/24/17 15:00 Dilaudid IVPUSH 03/24/17 14:44 0.5 mg ONETIME ONE Administration Hydromorphone HCl 0.25 mg 03/24/17 18:39 Dilaudid IVPUSH Q2H PRN Pain (severe 7-10) Hydromorphone HCl 0.25 mg 03/24/17 18:57 03/25/17 16:19 Dilaudid IVPUSH 0.25 mg Q2H PRN Administration Pain (severe 7-10) Sodium Chloride 1,000 mls @ 999 mls/hr 03/24/17 13:33 03/24/17 14:00 Normal Saline IV 03/24/17 14:33 999 mls/hr .Bolus ONE Administration Cefepime HCl 2 gm/ Premix 50 mls @ 100 mls/hr 03/24/17 13:46 03/24/17 14:20 IV 03/24/17 14:15 100 mls/hr ONETIME ONE Administration Vancomycin HCl 1,000 mg/ 250 mls @ 167 mls/hr 03/24/17 13:46 03/24/17 15:33 Dextrose/Water IV 03/24/17 15:15 Not Given ONETIME ONE Sodium Chloride 1,000 mls @ 999 mls/hr 03/24/17 13:47 03/24/17 14:00 Normal Saline IV 03/24/17 14:47 999 mls/hr .Bolus ONE Administration Vancomycin HCl 1,000 mg/ 100 mls @ 100 mls/hr 03/24/17 14:15 Sodium Chloride IV 03/24/17 15:14 ONETIME ONE Vancomycin HCl 1,000 mg/ 250 mls @ 250 mls/hr 03/24/17 14:15 03/24/17 15:32 Sodium Chloride IV 03/24/17 15:14 Not Given ONETIME ONE Vancomycin HCl 1 gm/ Sodium 250 mls @ 166 mls/hr 03/24/17 14:24 03/24/17 14: 26 Chloride IV 03/24/17 15:54 250 mls/hr ONETIME ONE Infusion Lactated Ringer's 1,000 mls @ 999 mls/hr 03/24/17 17:44 03/24/17 18:01 Ringers, Lactated IV 03/24/17 18:44 Not Given .BOLUS ONE Clindamycin Phosphate 900 mg/ 56 mls @ 100 mls/hr 03/24/17 18:15 03/24/17 19: 07 Sodium Chloride IV Not Given Q8H KAILASH Meropenem 1 gm/ Sodium 100 mls @ 200 mls/hr 03/24/17 19:00 03/24/17 21:07 Chloride IV 200 mls/hr Q8H KAILASH Administration Clindamycin Phosphate 900 mg/ 50 mls @ 100 mls/hr 03/24/17 19:15 03/25/17 19: 19 Premix IV 100 mls/hr Q8H KAILASH Administration Vancomycin HCl 1.25 gm/ Sodium 500 mls @ 333 mls/hr 03/25/17 02:00 03/25/17 02:08 Chloride IV 333 mls/hr Q12H KAILASH Administration Lactated Ringer's 1,000 mls @ 1,000 mls/hr 03/25/17 00:30 03/25/17 01:20 Ringers, Lactated IV 03/25/17 01:29 1,000 mls/hr ONETIME ONE Administration Magnesium Sulfate 2 gm/ Premix 50 mls @ 50 mls/hr 03/25/17 01:00 03/25/17 01: 43 IV 03/25/17 01:59 50 mls/hr ONETIME ONE Administration Meropenem 1 gm/ Sodium 100 mls @ 200 mls/hr 03/25/17 00:52 03/25/17 06:42 Chloride IV Not Given Q8H KAILASH Meropenem 1 gm/ Sodium 100 mls @ 200 mls/hr 03/25/17 03:00 03/25/17 10:44 Chloride IV 200 mls/hr Q8H KAILASH Administration Gentamicin Sulfate 132 mg/ 103.3 mls @ 206.6 mls/hr 03/25/17 10:15 03/25/17 18:59 Sodium Chloride IV 206.6 mls/hr Q8H KAILASH Administration Vancomycin HCl 1.5 gm/ Sodium 500 mls @ 333.333 mls/hr 03/25/17 14:00 13:54 Chloride IV 333.333 mls/hr Q12H KAILASH Administration Albumin Human 12.5 gm in 50 mls @ 50 mls/hr 03/25/17 10:30 03/25/17 11:37 Flexbumin 25% IV 03/25/17 12:29 50 mls/hr Q1H KAILASH Administration Albumin Human 12.5 gm in 50 mls @ 100 mls/hr 03/25/17 09:58 03/25/17 10:43 Flexbumin 25% IV 03/25/17 10:27 Not Given ONETIME ONE Potassium Chloride/Dextrose/Sod Cl 1,000 mls @ 75 mls/hr 03/25/17 11:30 03/25 11:44 D5 1/2 Ns W/ 20 Meq/L Kcl IV 75 mls/hr ASDIRECTED KAILASH Administration Linezolid 600 mg/ Premix 300 mls @ 300 mls/hr 03/25/17 15:30 03/25/17 16:22 IV 300 mls/hr Q12H KAILASH Administration Albumin Human 12.5 gm in 50 mls @ 100 mls/hr 03/25/17 17:36 03/25/17 18:54 Flexbumin 25% IV 03/25/17 18:05 Not Given ONETIME ONE Albumin Human 12.5 gm in 50 mls @ 100 mls/hr 03/25/17 17:37 03/25/17 17:52 Flexbumin 25% IV 03/25/17 18:06 100 mls/hr ONETIME ONE Administration Albumin Human 12.5 gm in 50 mls @ 100 mls/hr 03/25/17 18:00 03/25/17 18:11 Flexbumin 25% IV 03/25/17 18:29 100 mls/hr ONETIME ONE Administration Sodium Chloride 500 mls @ 999 mls/hr 03/25/17 20:00 03/25/17 19:56 Normal Saline IV 999 mls/hr .BOLUS KAILASH Administration Iopamidol 48 ml 03/25/17 00:23 03/25/17 01:02 Isovue-370 (76%) IV 03/25/17 00:24 48 ml ONETIME STA Administration Metoprolol Tartrate 2.5 mg 03/25/17 17:34 03/25/17 17:38 Lopressor IVPUSH 03/25/17 17:35 2.5 mg ONETIME ONE Administration Metoprolol Tartrate 2.5 mg 03/25/17 17:44 03/25/17 18:53 Lopressor IVPUSH 03/25/17 17:45 Not Given ONETIME ONE Ondansetron HCl 4 mg 03/24/17 18:39 Zofran Odt PO Q4H PRN nausea, able to take PO Potassium Chloride 40 meq 03/25/17 10:30 03/25/17 10:37 Klor-Con M20 PO 03/25/17 10:31 40 meq ONETIME ONE Administration Ranitidine HCl 150 mg 03/25/17 15:20 03/25/17 15:36 Zantac PO 03/25/17 15:21 150 mg NOW STA Administration Sodium Chloride 10 ml 03/24/17 13:33 Saline Flush FLUSH ASDIRECTED PRN Keep Vein Open Sodium Chloride 2.5 ml 03/24/17 13:33 Saline Flush FLUSH ASDIRECTED PRN Keep Vein Open Vancomycin HCl 1 dose 03/24/17 20:30 Pharmacy To Dose - Vancomycin .XX ASDIRECTED KAILASH Departure - Departure Time of Disposition: 15:05 Disposition: Admitted As Inpatient 65 Condition: Serious, Critical Clinical Impression: Systemic inflammatory response syndrome (SIRS), Sepsis, Tachycardia, Pyelonephritis, Metabolic acidosis Departure - Departure Time of Disposition: 15:04 Disposition: Admitted As Inpatient 65 Condition: Serious Clinical Impression: Systemic inflammatory response syndrome (SIRS), Sepsis, Tachycardia, Pyelonephritis, Metabolic acidosis
[2017-03-24] MEDS ORDERED: Cefepime 2 GM in Premix Bag 1 BAG IV ONE (13:46)
--- NOTE | 2017-03-24 14:28 | CR ---
EXAMINATION: Portable chest radiograph. HISTORY: Chest eval. FINDINGS: The trachea is midline. Poor inspiratory effort. The cardiomediastinal silhouette is within normal l imits. No pulmonary infiltrates, effusions or pneumothorax. Osseous structures appear unremarkable. IMPRESSION: No acute cardiopulmonary process.
[2017-03-24 14:38] LABS: CHLORIDE,CL 112 mmol/L (98-110); SODIUM,NA 140 mmol/L (136-146)
[2017-03-24] MEDS ORDERED: HYDROmorphone 2 MG/ML Syringe IVPUSH ONE (14:43)
--- NOTE | 2017-03-24 16:45 | CT ---
CT of the abdomen and pelvis without contrast. HISTORY: Pain TECHNIQUE: Axial CT images were obtained of the abdomen and pelvis without contrast. Coronal and sag ittal reconstructions obtained. FINDINGS: There is a small right and trace left pleural effusion with adjacent atelectasis. The left ventricul ar myocardium appears relatively dense compared to the blood density. There is mild periportal edema. Otherwise the liver, spleen, right adrenal glands, and pancreas appe ar unremarkable for noncontrast examination. There is nodular thickening of the left adrenal gland. The gallbladder appears normal. There is no bulky retroperitoneal lymphadenopathy. No abdominal as cites. There is a mild prominence of the renal collecting systems bilaterally without calcifications noted within the kidneys or along the courses of the ureters bilaterally. The large and small bowel are normal in caliber without evidence of obstruction. The appendix is not definitively identified. There is no bulky pelvic lymphadenopathy. There is a small amount of free fluid within the abdomen and pelvis. No free air noted. Uterus is enlarged consistent with a recent state. There is a Diane catheter noted within the bladder. The visualized osseous structures appear normal. L5 is a transitional type vertebra on the left. IMPRESSION: 1. Small right and trace left pleural effusions, with likely adjacent atelectasis. 2. Relatively hypodense blood compared to the left ventricular myocardium, this suggests anemia. 3. Small amount of abdominal ascites and free pelvic fluid with moderate nonspecific periportal ji a. 3. The appendix is not clearly identified. 4. Enlarged uterus consistent with recent state. 5. Mildly prominent renal collecting systems bilaterally without evidence of obstructing stones.
[2017-03-24] MEDS ORDERED: Lactated Ringers 1,000 ML IV ONE (17:44)
[2017-03-24] MEDS ORDERED: Furosemide 40 MG/4 ML VIAL IVPUSH ONE (18:00)
--- NOTE | 2017-03-24 18:32 | PCM.HP ---
H&P History of Present Illness - General Date of Service: 03/24/17 Source of Information: Patient History Limitations: Reports: No limitations - History of Present Illness Initial Comments - Free Text/Narative: Primigravida delivered friday, said to have fever on d/c friday, seen inER friday and treated as UTI but blood cultures from then grew Gm+ cocci in chains. Returned to ER with tachycardia and acidosis. Opinions split regarding problem. Possible cardiomyopathy, eclampsia or endometritis which is feeling of gynecology. Symptom Onset Date: 04/19/17 Duration of Symptoms: Reports: Day(s): Location: Reports: abdomen abd Pain Score (Numeric/FACES): 8 - Related Data Allergies/Adverse Reactions: Allergies Allergy/AdvReac Type Severity Reaction Status Date / Time amoxicillin Allergy Hives Verified 03/23/17 23:40 sulfamethoxazole Allergy Vomiting Verified 03/24/17 16:55 [From Bactrim] trimethoprim [From Bactrim] Allergy Vomiting Verified 03/24/17 16:55 Home Medications: Home Meds . 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) Psychiatric History: Reports: Anxiety Dermatologic History: Reports: Eczema - Infectious Disease History Infectious Disease History: Reports: Influenza - Past Surgical History HEENT Surgical History: Reports: Oral surgery Social & Family History - Family History Family Medical History: Noncontributory HEENT: Reports: Glaucoma, Hearing impairment, Impaired vision Cardiac: Reports: Hypertension, [place] OBGYN: Reports: Musculoskeletal: Reports: Arthritis Neurological: Reports: [place] Psychiatric: Reports: Anxiety Endocrine/Metabolic: Reports: Diabetes, type II Oncologic: Reports: Colon - Tobacco Use Smoking Status *Q: Never Smoker Second Hand Smoke Exposure: No - Caffeine Use Caffeine Use: Reports: Coffee - Alcohol Use Days Per Week of Alcohol Use: 1 Number of Drinks Per Day: 4 Total Drinks Per Week: 4 - Recreational Drug Use Recreational Drug Use: No H&P Review of Systems - Review of Systems: Review Of Systems: See Below General: Reports: no symptoms HEENT: Reports: no symptoms Pulmonary: Reports: Shortness of Breath Cardiovascular: Reports: no symptoms Gastrointestinal: Reports: No symptoms Genitourinary: Reports: no symptoms Musculoskeletal: Reports: other (says legs weak though probably just heavy from edema) Skin: Reports: no symptoms Exam - Exam Exam: See Below - Vital Signs Vital Signs: Last Vital Signs Temp 37.7 C 03/24/17 17:00 Pulse 146 H 03/24/17 17:00 Resp 31 H 03/24/17 17:00 BP 122/69 03/24/17 17:00 Pulse Ox 93 L 03/24/17 17:00 Weight: 88.9 kg - Exam General: alert, oriented, moderate distress HEENT: Conjunctiva clear Neck: supple Lungs: Clear to auscultation Cardiovascular: regular rate, regular rhythm, tachycardia Abdomen: other (tender all over with rebound) (Female) Exam: Deferred Rectal (Female) Exam: Deferred Extremities: edema (+3 no cords or tenderness) - Patient Data Lab Results last 24 hrs: Laboratory Results - last 24 hr 03/24/17 03/24/17 03/24/17 Range/Units 15:24 17:35 17:35 Lactate Dehydrogenase 258 H (125-220) IU/L B-Natriuretic Peptide 344 H (<100) PG/ML Urine Color YELLOW Urine Appearance CLEAR Urine pH 6.0 (5.0-8.0) Ur Specific [place] 1.010 (1.001-1.035) Urine Protein NEGATIVE (NEGATIVE) mg/dL Urine Glucose (UA) NEGATIVE (NEGATIVE) mg/dL Urine Ketones 15 H (NEGATIVE) mg/dL Urine Occult Blood TRACE-INTACT (NEGATIVE) Urine Nitrite NEGATIVE (NEGATIVE) Urine Bilirubin NEGATIVE (NEGATIVE) Urine Urobilinogen 0.2 (<2.0) EU/dL Ur Leukocyte Esterase NEGATIVE (NEGATIVE) Urine RBC 1-2 (0-2/HPF) Urine WBC 2-4 (0-5/HPF) Ur Epithelial Cells FEW (NONE-FEW) Urine Bacteria FEW (NEGATIVE) Result Diagrams: 03/24/17 14:00 03/24/17 14:00 *Q Meaningful Use (ADM) - VTE *Q VTE Criteria *Q: - Stroke *Q Stroke Criteria *Q: - AMI *Q AMI Criteria *Q: Problem List Initiated/Reviewed/Updated: Yes Orders Last 24hrs: Active Orders 24 hr Category Date Time Status Notify Provider Consults [RC] ASDIRECTED Care 03/24/17 17:24 Active Consult to Physician [CONS] Urgent Cons 03/24/17 17:23 Active NPO [Nothing Per Oral Diet] [DIET] Diet 03/24/17 Dinner Active Echo Comp wo Cont [US] Routine Exams 03/24/17 17:45 Ordered D Dimer [D-DIMER QUANTITATIVE] [COAG] Routine Lab 03/24/17 17:35 Received LACTIC ACID,WHOLE BLOOD [BG] Routine Lab 03/24/17 19:30 Ordered Clindamycin Phosphate [Cleocin] 900 mg Med 03/24/17 18:15 Active Sodium Chloride 0.9% [Normal Saline] 50 ml IV Q8H Gentamicin Med 03/24/17 18:15 Active 132 mg IV Q8H Medication Orders Gentamicin Sulfate (Gentamicin) 132 mg IV Q8H KAILASH Clindamycin Phosphate 900 mg/ (Sodium Chloride) 56 mls @ 100 mls/hr IV Q8H KAILASH Sodium Chloride (Saline Flush) 10 ml FLUSH ASDIRECTED PRN PRN Reason: Keep Vein Open Sodium Chloride (Saline Flush) 2.5 ml FLUSH ASDIRECTED PRN PRN Reason: Keep Vein Open Assessment/Plan Comment:: abdominal pain most consistent with endometritis, some degree of peritonitis extreme tachycardia cardiology consult Will administer broad spectrum antibiotics. pain control
--- NOTE | 2017-03-24 18:35 | PCM.HP ---
H&P History of Present Illness - General Date of Service: 03/24/17 Admit Problem/Dx: Fevers with leg weakness and abdominal pain Source of Information: Patient History Limitations: Reports: No limitations - History of Present Illness Initial Comments - Free Text/Narative: 26yo P1 PPD#[address] [facility] with no significant perineal lacerations. Patient was induced at 38+2 (deliver 38+4) for gestational hypertension with neurologic features. Pt states starting Friday after discharge she had weakness in legs , abdominal pain and also fevers. 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 Symptoms progressively worsened until patient presented to the yesterday. Pt was evaluated in the ER and was told she had a UTI and was given a Rx for antibiotics for which she stated she did not get a chance to feel. Pt denies headaches but admits to seeing spots. Pt also admits to generalized abdominal pain. Pt reports a temperature of 102 at home. Pt also with malaise and light headedness. Review of patients labs gives a unclear picture given the patient's recent status. Unclear if variant HELLP in the period vs. SIRS from what appears to be clinical endometritis. Cardiac and liver abnormalities noted per labs and clinically. Pt with noted tachypnea, malaise and tachycardia. White count is not elevated but manual count makes a reference to toxic granulation. Patient also does not exhibit any hypertensive BPs. Onset of Symptoms: Reports: other (Yesterday) Symptom Onset Date: 03/23/17 Duration of Symptoms: Reports: Day(s): (2) Location: Reports: abdomen, generalized, other (mostly affected lower extremities) Quality: Reports: Ache, Burning Severity: severe Improves with: Reports: None Worsens with: Reports: Breathing Associated Symptoms: Reports: weakness abd Pain Score (Numeric/FACES): 8 - Related Data Allergies/Adverse Reactions: Allergies Allergy/AdvReac Type Severity Reaction Status Date / Time amoxicillin Allergy Hives Verified 03/23/17 23:40 sulfamethoxazole Allergy Vomiting Verified 03/24/17 16:55 [From Bactrim] trimethoprim [From Bactrim] Allergy Vomiting Verified 03/24/17 16:55 Home Medications: Home Meds . 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) Psychiatric History: Reports: Anxiety Dermatologic History: Reports: Eczema - Infectious Disease History Infectious Disease History: Reports: Influenza - Past Surgical History HEENT Surgical History: Reports: Oral surgery Social & Family History - Family History Family Medical History: Noncontributory HEENT: Reports: Glaucoma, Hearing impairment, Impaired vision Cardiac: Reports: Hypertension, [place] OBGYN: Reports: Musculoskeletal: Reports: Arthritis Neurological: Reports: MS Psychiatric: Reports: Anxiety Endocrine/Metabolic: Reports: Diabetes, type II Oncologic: Reports: Colon - Tobacco Use Smoking Status *Q: Never Smoker Second Hand Smoke Exposure: No - Caffeine Use Caffeine Use: Reports: Coffee - Alcohol Use Days Per Week of Alcohol Use: 1 Number of Drinks Per Day: 4 Total Drinks Per Week: 4 - Recreational Drug Use Recreational Drug Use: No H&P Review of Systems - Review of Systems: Review Of Systems: See Below General: Reports: fever, chills, malaise, weakness, fatigue, weight gain HEENT: Reports: visual changes (seeing spots) Pulmonary: Reports: Shortness of Breath Cardiovascular: Reports: palpitations, dyspnea on exertion Gastrointestinal: Reports: Abdominal pain Genitourinary: Reports: no symptoms Musculoskeletal: Reports: other (bilateral leg weakness) Skin: Reports: pallor, other (edematous) Psychiatric: Reports: no symptoms Neurological: Reports: No Symptoms Hematologic/Lymphatic: Reports: no symptoms Exam - Exam Exam: See Below - Vital Signs Vital Signs: Last Vital Signs Temp 37.7 C 03/24/17 17:00 Pulse 146 H 03/24/17 17:00 Resp 31 H 03/24/17 17:00 BP 122/69 03/24/17 17:00 Pulse Ox 93 L 03/24/17 17:00 Weight: 88.9 kg - Exam Quality Assessment: supplemental oxygen General: alert, oriented, cooperative, mild distress (with talking and tremulous ) Lungs: Decreased breath sounds, Crackles (small at bases bilaterally) Cardiovascular: tachycardia Abdomen: peritoneal signs, distention, guarding, tenderness (directly over the uterine fundus) (Female) Exam: Normal external exam (with yellow/maroon to brownish discharge ), Vaginal discharge Extremities: edema Skin: warm, dry, intact Neurological: other (upper extremity reflex 1-2+) DTR: 1+: bicep (L), bicep (R) Psychiatric: alert, other (appears very uncomfortable and concerned) - Patient Data Lab Results last 24 hrs: Laboratory Results - last 24 hr 03/24/17 03/24/17 03/24/17 Range/Units 15:24 17:35 17:35 Lactate Dehydrogenase 258 H (125-220) IU/L B-Natriuretic Peptide 344 H (<100) PG/ML Urine Color YELLOW Urine Appearance CLEAR Urine pH 6.0 (5.0-8.0) Ur Specific [place] 1.010 (1.001-1.035) Urine Protein NEGATIVE (NEGATIVE) mg/dL Urine Glucose (UA) NEGATIVE (NEGATIVE) mg/dL Urine Ketones 15 H (NEGATIVE) mg/dL Urine Occult Blood TRACE-INTACT (NEGATIVE) Urine Nitrite NEGATIVE (NEGATIVE) Urine Bilirubin NEGATIVE (NEGATIVE) Urine Urobilinogen 0.2 (<2.0) EU/dL Ur Leukocyte Esterase NEGATIVE (NEGATIVE) Urine RBC 1-2 (0-2/HPF) Urine WBC 2-4 (0-5/HPF) Ur Epithelial Cells FEW (NONE-FEW) Urine Bacteria FEW (NEGATIVE) Result Diagrams: 03/24/17 14:00 03/24/17 14:00 *Q Meaningful Use (ADM) - VTE *Q VTE Criteria *Q: - Stroke *Q Stroke Criteria *Q: - AMI *Q AMI Criteria *Q: Problem List Initiated/Reviewed/Updated: Yes Orders Last 24hrs: Active Orders 24 hr Category Date Time Status Notify Provider Consults [RC] ASDIRECTED Care 03/24/17 17:24 Active Consult to Physician [CONS] Urgent Cons 03/24/17 17:23 Active NPO [Nothing Per Oral Diet] [DIET] Diet 03/24/17 Dinner Active Echo Comp wo Cont [US] Routine Exams 03/24/17 17:45 Ordered D Dimer [D-DIMER QUANTITATIVE] [COAG] Routine Lab 03/24/17 17:35 Received LACTIC ACID,WHOLE BLOOD [BG] Routine Lab 03/24/17 19:30 Ordered Clindamycin Phosphate [Cleocin] 900 mg Med 03/24/17 18:15 Ordered Sodium Chloride 0.9% [Normal Saline] 50 ml IV Q8H Gentamicin Med 03/24/17 18:15 Ordered 132 mg IV Q8H Medication Orders Gentamicin Sulfate (Gentamicin) 132 mg IV Q8H KAILASH Clindamycin Phosphate 900 mg/ (Sodium Chloride) 56 mls @ 100 mls/hr IV Q8H KAILASH Sodium Chloride (Saline Flush) 10 ml FLUSH ASDIRECTED PRN PRN Reason: Keep Vein Open Sodium Chloride (Saline Flush) 2.5 ml FLUSH ASDIRECTED PRN PRN Reason: Keep Vein Open Assessment/Plan Comment:: Assessment: Confounding symptoms Possible endometritis with SIRS Possible HELLP Cardiology on consult for now Plan: Diuresis with cardiology advisement 2nd to significant tachycardia Echocardiogram in the am Will start empiric treatment for endometritis Will check labs in the am Will monitor for further findings of preeclampsia though also working differential of endometritis with
[2017-03-24] MEDS ORDERED: HYDROmorphone 2 MG/ML Syringe IVPUSH PRN (18:39)
[2017-03-24] MEDS ORDERED: Ondansetron 4 MG Tab.DIS PO PRN (18:39)
[2017-03-24] MEDS ORDERED: Meropenem 1 GM in Sodium Chloride 0.9% 100 ML IV SCH (19:00)
[2017-03-24] MEDS: Gentamicin 40 MG/ML 2 ML Vial IV SCH (19:09)
[2017-03-24] MEDS: HYDROmorphone 1 MG/ML Syringe IVPUSH PRN ×2 (20:22→23:44)
[2017-03-24] MEDS: Clindamycin Phosphate in D5W 900 MG in Premix Bag 1 BAG IV SCH ×2 (20:27)
[2017-03-24] MEDS ORDERED: Enoxaparin 40 MG/0.4 ML Syringe SUBCUT SCH (21:00)
[2017-03-24] MEDS: Acetaminophen 325 MG Tab PO PRN (21:30)
[2017-03-24 23:12] LABS: CHLORIDE,CL 112 mmol/L (98-110); SODIUM,NA 141 mmol/L (136-146)
--- NOTE | 2017-03-24 23:32 | CONS ---
DATE OF CONSULTATION: DATE OF : 1990 PRIMARY CARE PHYSICIAN: None PCP REASON FOR CONSULTATION: Tachycardia and shortness of breath. HISTORY OF PRESENT ILLNESS: This is a 26-year-old female, G1, P1, full-term, just delivered a baby 3 days ago, presented to the hospital because of leg weakness and also pelvic cramps. This is her first . She has never been before. During her , she was found to have elevation of her blood pressure and she was not taking any medication for it and was found to have the proteinuria; however, 24- hour urine protein was negative per patient report. She stated that she feels fine after delivering the baby; however, on Friday and Friday, she started having leg weakness. She could not walk further because she feels like she cannot move her legs at all and also today, she started having pelvic pain in her belly. No painful urination. No blood in her urine and no fever. Otherwise, no nausea. No vomiting. She denied shortness of breath. However, she is breathing fast. No chest pain either. She also stated that she could not get a full breath. The reason that she was in the ICU because of the tachycardia with a heart rate of 159 and tachypnea. REVIEW OF SYSTEMS: Has been negative for 12-point review of system except indicated in the HPI. PAST MEDICAL HISTORY: Recently found to have a blood culture positive for gram positive cocci in chains, but no history ofPROM, no abdominal discharge as well. No history of diabetes, hypertension, history of cardiomyopathy in the past. SOCIAL HISTORY: Denies drug use, alcohol abuse, and smoking. FAMILY HISTORY: No history of CAD or heart failure. PHYSICAL EXAMINATION: VITAL SIGNS: Blood pressure 122/63, heart rate of 146, respiration rate 32, and O2 saturation 95 on 2 L. HEENT: Mildly JVD engorged; however, she is very tachycardic. This could be a falsely elevation of her JVD as well. HEART: Tachycardic. No murmur. LUNGS: Decreased breath sounds. I could not hear wheezing or crackles. ABDOMEN: Moderate tender. Bowel sounds decreased. EXTREMITIES: Legs, 2+ swelling, it seemed to be worse than it was per patient. LABORATORY INVESTIGATION: CBC showed WBC 5, hematocrit 28, platelet 133, lactate 3.5, sodium 140, potassium 3.6, chloride 112, bicarb 12, BUN 14, creatinine 0.8. GFR is 160, AST 143, ALT 98, troponin is less than 0.1. Urinalysis is positive for ketone. ASSESSMENT AND PLAN: This is a 26-year-old female, G1, P1, recent post delivery day 3 with tachypnea, tachycardia, abdominal pain with gram positive cocci in chains and concerned about intraabdominal infection; however, so far CAT scan without contrast did not show any source of infection, but it does show bilateral pleural effusion. No free fluid in her belly. I would definitely workup for cardiomyopathy. Definitely, I will check her BNP. I would also workup for PE per hospitalist. I would also check her echocardiogram and also light empiric treatment for infection. She is going to be seen by [facility] for the pelvic exam to rule out pelvic organ inflammatory disease or infection and I will keep following up the patient. Thank you so much. RAMBO BETTENCOURT /[id number] JAMAR
[2017-03-25] MEDS ORDERED: Iopamidol 755 MG/ML 50 ML Bottle IV STA (00:23)
[2017-03-25] MEDS ORDERED: Lactated Ringers 1,000 ML IV ONE (00:30)
[2017-03-25] MEDS ORDERED: Meropenem 1 GM in Sodium Chloride 0.9% 100 ML IV SCH (00:52)
[2017-03-25] MEDS ORDERED: Magnesium Sulfate/Water 2 GM in Premix Bag 1 BAG IV ONE (01:00)
[2017-03-25] MEDS ORDERED: Vancomycin 1.25 GM in Sodium Chloride 0.9% 500 ML IV SCH (02:00)
[2017-03-25] MEDS: Gentamicin 40 MG/ML 2 ML Vial IV SCH (02:55)
[2017-03-25] MEDS: Meropenem 1 GM in Sodium Chloride 0.9% 100 ML IV SCH ×2 (03:27→10:44)
[2017-03-25] MEDS: Clindamycin Phosphate in D5W 900 MG in Premix Bag 1 BAG IV SCH ×6 (03:50→19:19)
[2017-03-25] MEDS: HYDROmorphone 1 MG/ML Syringe IVPUSH PRN ×6 (04:14→16:19)
[2017-03-25 05:11] LABS: CHLORIDE,CL 113 mmol/L (98-110); SODIUM,NA 140 mmol/L (136-146)
[2017-03-25] MEDS: Acetaminophen 325 MG Tab PO PRN ×2 (07:57→15:38)
--- NOTE | 2017-03-25 08:01 | PCM.PN ---
- General Info Date of Service: 03/25/17 Functional Status: Reports: pain controlled (with meds), incentive spirometry ( just given) - Review of Systems General: Reports: [place] HEENT: Reports: no symptoms Pulmonary: Reports: shortness of breath (painful to take a deep breath) Cardiovascular: Reports: No Symptoms Gastrointestinal: Reports: Abdominal pain Genitourinary: Reports: no symptoms Musculoskeletal: Reports: leg pain Skin: Reports: pallor (appears better today) Neurological: Reports: Headache (mild 3/10 headache) Psychiatric: Reports: no symptoms - Patient Data Vitals - most recent: Last Vital Signs Temp 38.2 C H 03/25/17 04:00 Pulse 143 H 03/25/17 06:00 Resp 32 H 03/25/17 06:00 BP 127/75 03/25/17 06:00 Pulse Ox 90 L 03/25/17 06:08 Weight - most recent: 87.9 kg I&O - last 24 hours: Intake & Output 03/24/17 03/25/17 03/25/17 22:59 06:59 14:59 Intake Total 250 2450 Output Total 4600 Balance 250 -2150 Lab Results last 24 hrs: Laboratory Results - last 24 hr 03/24/17 03/24/17 03/24/17 Range/Units 15:24 17:35 17:35 WBC (4.0-11.0) K/uL RBC (4.30-5.90) M/uL Hgb (12.0-16.0) g/dL Hct (36.0-46.0) % MCV (80.0-98.0) fL MCH (27.0-32.0) pg MCHC (31.0-37.0) g/dL RDW Std Deviation (28.0-62.0) fl RDW Coeff of [place] (11.0-15.0) % Plt Count (150-400) K/uL MPV (7.40-12.00) fL Add Manual Diff Neutrophils % (Manual) (48.0-80.0) % Band Neutrophils % % Lymphocytes % (Manual) (16.0-40.0) % Basophils % (Manual) (0.0-1.5) % Metamyelocytes % % Nucleated RBC % /100WBC Absolute Seg Neuts Band Neutrophils # Lymphocytes # (Manual) Basophils # (Manual) Absolute Metamyelocyte Nucleated RBCs # K/uL D-Dimer, Quantitative (0.0-0.52) mg/LFEU ABG pH (7.35-7.45) ABG pCO2 (35-45) mmHG ABG pO2 (75-100) mmHG ABG HCO3 (22-26) mEq/L ABG Total CO2 ABG Base Excess (-2.0-2.0) Lactate (0.20-2.00) mmol/L Sodium (136-146) mmol/L Potassium (3.5-5.1) mmol/L Chloride (98-110) mmol/L Carbon Dioxide (21-31) mmol/L BUN (6.0-23.0) mg/dL Creatinine (0.6-1.5) mg/dL Est Cr Clr Drug Dosing mL/min Estimated GFR (MDRD) ml/min Glucose (60-110) mg/dL Calcium (8.8-10.8) mg/dL Phosphorus (2.4-4.7) mg/dL Magnesium (1.5-2.3) mEq/L Total Bilirubin (0.1-1.5) mg/dL Direct Bilirubin (0.0-0.5) mg/dL AST (5-40) IU/L ALT (8-54) IU/L Alkaline Phosphatase (40-150) Lactate Dehydrogenase 258 H (125-220) IU/L Troponin I (0.0-0.29) NG/ML B-Natriuretic Peptide 344 H (<100) PG/ML Total Protein (6.0-8.0) g/dL Albumin (3.5-5.0) g/dL Globulin (2.0-3.5) g/dL Albumin/Globulin Ratio (1.3-2.8) Amylase (10-90) U/L Lipase (7-80) U/L Urine Color YELLOW Urine Appearance CLEAR Urine pH 6.0 (5.0-8.0) Ur Specific [place] 1.010 (1.001-1.035) Urine Protein NEGATIVE (NEGATIVE) mg/dL Urine Glucose (UA) NEGATIVE (NEGATIVE) mg/dL Urine Ketones 15 H (NEGATIVE) mg/dL Urine Occult Blood TRACE-INTACT (NEGATIVE) Urine Nitrite NEGATIVE (NEGATIVE) Urine Bilirubin NEGATIVE (NEGATIVE) Urine Urobilinogen 0.2 (<2.0) EU/dL Ur Leukocyte Esterase NEGATIVE (NEGATIVE) Urine RBC 1-2 (0-2/HPF) Urine WBC 2-4 (0-5/HPF) Ur Epithelial Cells FEW (NONE-FEW) Urine Bacteria FEW (NEGATIVE) 03/24/17 03/24/17 03/24/17 Range/Units 17:35 17:35 19:08 WBC 4.72 (4.0-11.0) K/uL RBC 3.45 L (4.30-5.90) M/uL Hgb 9.1 L (12.0-16.0) g/dL Hct 28.4 L (36.0-46.0) % MCV 82.3 (80.0-98.0) fL MCH 26.4 L (27.0-32.0) pg MCHC 32.0 (31.0-37.0) g/dL RDW Std Deviation 47.7 (28.0-62.0) fl RDW Coeff of Lucina 16 H (11.0-15.0) % Plt Count 143 L (150-400) K/uL MPV 10.50 (7.40-12.00) fL Add Manual Diff Neutrophils % (Manual) (48.0-80.0) % Band Neutrophils % % Lymphocytes % (Manual) (16.0-40.0) % Basophils % (Manual) (0.0-1.5) % Metamyelocytes % % Nucleated RBC % 0.0 /100WBC Absolute Seg Neuts Band Neutrophils # Lymphocytes # (Manual) Basophils # (Manual) Absolute Metamyelocyte Nucleated RBCs # 0 K/uL D-Dimer, Quantitative 12.21 H (0.0-0.52) mg/LFEU ABG pH (7.35-7.45) ABG pCO2 (35-45) mmHG ABG pO2 (75-100) mmHG ABG HCO3 (22-26) mEq/L ABG Total CO2 ABG Base Excess (-2.0-2.0) Lactate 3.2 H (0.20-2.00) mmol/L Sodium (136-146) mmol/L Potassium (3.5-5.1) mmol/L Chloride (98-110) mmol/L Carbon Dioxide (21-31) mmol/L BUN (6.0-23.0) mg/dL Creatinine (0.6-1.5) mg/dL Est Cr Clr Drug Dosing mL/min Estimated GFR (MDRD) ml/min Glucose (60-110) mg/dL Calcium (8.8-10.8) mg/dL Phosphorus (2.4-4.7) mg/dL Magnesium (1.5-2.3) mEq/L Total Bilirubin (0.1-1.5) mg/dL Direct Bilirubin (0.0-0.5) mg/dL AST (5-40) IU/L ALT (8-54) IU/L Alkaline Phosphatase (40-150) Lactate Dehydrogenase (125-220) IU/L Troponin I (0.0-0.29) NG/ML B-Natriuretic Peptide (<100) PG/ML Total Protein (6.0-8.0) g/dL Albumin (3.5-5.0) g/dL Globulin (2.0-3.5) g/dL Albumin/Globulin Ratio (1.3-2.8) Amylase (10-90) U/L Lipase (7-80) U/L Urine Color Urine Appearance Urine pH (5.0-8.0) Ur Specific [place] (1.001-1.035) Urine Protein (NEGATIVE) mg/dL Urine Glucose (UA) (NEGATIVE) mg/dL Urine Ketones (NEGATIVE) mg/dL Urine Occult Blood (NEGATIVE) Urine Nitrite (NEGATIVE) Urine Bilirubin (NEGATIVE) Urine Urobilinogen (<2.0) EU/dL Ur Leukocyte Esterase (NEGATIVE) Urine RBC (0-2/HPF) Urine WBC (0-5/HPF) Ur Epithelial Cells (NONE-FEW) Urine Bacteria (NEGATIVE) 03/24/17 03/24/17 03/24/17 Range/Units 22:40 22:40 22:40 WBC 6.65 (4.0-11.0) K/uL RBC 3.52 L (4.30-5.90) M/uL Hgb 9.3 L (12.0-16.0) g/dL Hct 28.8 L (36.0-46.0) % MCV 81.8 (80.0-98.0) fL MCH 26.4 L (27.0-32.0) pg MCHC 32.3 (31.0-37.0) g/dL RDW Std Deviation 46.8 (28.0-62.0) fl RDW Coeff of Lucina 16 H (11.0-15.0) % Plt Count 136 L (150-400) K/uL MPV 9.60 (7.40-12.00) fL Add Manual Diff YES Neutrophils % (Manual) 41 L (48.0-80.0) % Band Neutrophils % 49 % Lymphocytes % (Manual) 8 L (16.0-40.0) % Basophils % (Manual) (0.0-1.5) % Metamyelocytes % 2 % Nucleated RBC % 0.0 /100WBC Absolute Seg Neuts 2.7 Band Neutrophils # 3.3 Lymphocytes # (Manual) 0.5 Basophils # (Manual) Absolute Metamyelocyte 0.1 Nucleated RBCs # 0 K/uL D-Dimer, Quantitative (0.0-0.52) mg/LFEU ABG pH (7.35-7.45) ABG pCO2 (35-45) mmHG ABG pO2 (75-100) mmHG ABG HCO3 (22-26) mEq/L ABG Total CO2 ABG Base Excess (-2.0-2.0) Lactate 2.5 H (0.20-2.00) mmol/L Sodium 141 (136-146) mmol/L Potassium 3.4 L (3.5-5.1) mmol/L Chloride 112 H (98-110) mmol/L Carbon Dioxide 13 L (21-31) mmol/L BUN 13 (6.0-23.0) mg/dL Creatinine 0.8 (0.6-1.5) mg/dL Est Cr Clr Drug Dosing 94.90 mL/min Estimated GFR (MDRD) > 60.0 ml/min Glucose 63 (60-110) mg/dL Calcium 8.1 L (8.8-10.8) mg/dL Phosphorus 3.9 (2.4-4.7) mg/dL Magnesium 1.1 L (1.5-2.3) mEq/L Total Bilirubin 1.2 (0.1-1.5) mg/dL Direct Bilirubin 0.7 H (0.0-0.5) mg/dL AST 124 H (5-40) IU/L ALT 90 H (8-54) IU/L Alkaline Phosphatase 98 (40-150) Lactate Dehydrogenase (125-220) IU/L Troponin I (0.0-0.29) NG/ML B-Natriuretic Peptide (<100) PG/ML Total Protein 4.8 L (6.0-8.0) g/dL Albumin 2.2 L (3.5-5.0) g/dL Globulin 2.6 (2.0-3.5) g/dL Albumin/Globulin Ratio 0.9 L (1.3-2.8) Amylase (10-90) U/L Lipase (7-80) U/L Urine Color Urine Appearance Urine pH (5.0-8.0) Ur Specific [place] (1.001-1.035) Urine Protein (NEGATIVE) mg/dL Urine Glucose (UA) (NEGATIVE) mg/dL Urine Ketones (NEGATIVE) mg/dL Urine Occult Blood (NEGATIVE) Urine Nitrite (NEGATIVE) Urine Bilirubin (NEGATIVE) Urine Urobilinogen (<2.0) EU/dL Ur Leukocyte Esterase (NEGATIVE) Urine RBC (0-2/HPF) Urine WBC (0-5/HPF) Ur Epithelial Cells (NONE-FEW) Urine Bacteria (NEGATIVE) 03/24/17 03/24/17 03/24/17 Range/Units 22:40 22:40 23:15 WBC (4.0-11.0) K/uL RBC (4.30-5.90) M/uL Hgb (12.0-16.0) g/dL Hct (36.0-46.0) % MCV (80.0-98.0) fL MCH (27.0-32.0) pg MCHC (31.0-37.0) g/dL RDW Std Deviation (28.0-62.0) fl RDW Coeff of Lucina (11.0-15.0) % Plt Count (150-400) K/uL MPV (7.40-12.00) fL Add Manual Diff Neutrophils % (Manual) (48.0-80.0) % Band Neutrophils % % Lymphocytes % (Manual) (16.0-40.0) % Basophils % (Manual) (0.0-1.5) % Metamyelocytes % % Nucleated RBC % /100WBC Absolute Seg Neuts Band Neutrophils # Lymphocytes # (Manual) Basophils # (Manual) Absolute Metamyelocyte Nucleated RBCs # K/uL D-Dimer, Quantitative (0.0-0.52) mg/LFEU ABG pH 7.461 H (7.35-7.45) ABG pCO2 23 L (35-45) mmHG ABG pO2 85 (75-100) mmHG ABG HCO3 16 L (22-26) mEq/L ABG Total CO2 15.1 ABG Base Excess -6.7 L (-2.0-2.0) Lactate (0.20-2.00) mmol/L Sodium (136-146) mmol/L Potassium (3.5-5.1) mmol/L Chloride (98-110) mmol/L Carbon Dioxide (21-31) mmol/L BUN (6.0-23.0) mg/dL Creatinine (0.6-1.5) mg/dL Est Cr Clr Drug Dosing mL/min Estimated GFR (MDRD) ml/min Glucose (60-110) mg/dL Calcium (8.8-10.8) mg/dL Phosphorus (2.4-4.7) mg/dL Magnesium (1.5-2.3) mEq/L Total Bilirubin (0.1-1.5) mg/dL Direct Bilirubin (0.0-0.5) mg/dL AST (5-40) IU/L ALT (8-54) IU/L Alkaline Phosphatase (40-150) Lactate Dehydrogenase (125-220) IU/L Troponin I 0.19 (0.0-0.29) NG/ML B-Natriuretic Peptide 381 H (<100) PG/ML Total Protein (6.0-8.0) g/dL Albumin (3.5-5.0) g/dL Globulin (2.0-3.5) g/dL Albumin/Globulin Ratio (1.3-2.8) Amylase (10-90) U/L Lipase (7-80) U/L Urine Color Urine Appearance Urine pH (5.0-8.0) Ur Specific [place] (1.001-1.035) Urine Protein (NEGATIVE) mg/dL Urine Glucose (UA) (NEGATIVE) mg/dL Urine Ketones (NEGATIVE) mg/dL Urine Occult Blood (NEGATIVE) Urine Nitrite (NEGATIVE) Urine Bilirubin (NEGATIVE) Urine Urobilinogen (<2.0) EU/dL Ur Leukocyte Esterase (NEGATIVE) Urine RBC (0-2/HPF) Urine WBC (0-5/HPF) Ur Epithelial Cells (NONE-FEW) Urine Bacteria (NEGATIVE) 03/25/17 03/25/17 03/25/17 Range/Units 04:35 04:35 04:35 WBC 7.26 (4.0-11.0) K/uL RBC 3.27 L (4.30-5.90) M/uL Hgb 8.5 L (12.0-16.0) g/dL Hct 26.6 L (36.0-46.0) % MCV 81.3 (80.0-98.0) fL MCH 26.0 L (27.0-32.0) pg MCHC 32.0 (31.0-37.0) g/dL RDW Std Deviation 46.9 (28.0-62.0) fl RDW Coeff of Lucina 16 H (11.0-15.0) % Plt Count 110 L (150-400) K/uL MPV 9.90 (7.40-12.00) fL Add Manual Diff YES Neutrophils % (Manual) 60 (48.0-80.0) % Band Neutrophils % 27 % Lymphocytes % (Manual) 8 L (16.0-40.0) % Basophils % (Manual) 1 (0.0-1.5) % Metamyelocytes % 4 % Nucleated RBC % 0.0 /100WBC Absolute Seg Neuts 4.4 Band Neutrophils # 2.0 Lymphocytes # (Manual) 0.6 Basophils # (Manual) 0 Absolute Metamyelocyte 0.3 Nucleated RBCs # 0 K/uL D-Dimer, Quantitative (0.0-0.52) mg/LFEU ABG pH (7.35-7.45) ABG pCO2 (35-45) mmHG ABG pO2 (75-100) mmHG ABG HCO3 (22-26) mEq/L ABG Total CO2 ABG Base Excess (-2.0-2.0) Lactate (0.20-2.00) mmol/L Sodium 140 (136-146) mmol/L Potassium 3.4 L (3.5-5.1) mmol/L Chloride 113 H (98-110) mmol/L Carbon Dioxide 13 L (21-31) mmol/L BUN 15 (6.0-23.0) mg/dL Creatinine 0.8 (0.6-1.5) mg/dL Est Cr Clr Drug Dosing TNP mL/min Estimated GFR (MDRD) > 60.0 ml/min Glucose 67 (60-110) mg/dL Calcium 7.8 L (8.8-10.8) mg/dL Phosphorus (2.4-4.7) mg/dL Magnesium (1.5-2.3) mEq/L Total Bilirubin 1.0 (0.1-1.5) mg/dL Direct Bilirubin (0.0-0.5) mg/dL AST 102 H (5-40) IU/L ALT 74 H (8-54) IU/L Alkaline Phosphatase 99 (40-150) Lactate Dehydrogenase (125-220) IU/L Troponin I (0.0-0.29) NG/ML B-Natriuretic Peptide (<100) PG/ML Total Protein 4.4 L (6.0-8.0) g/dL Albumin 2.0 L (3.5-5.0) g/dL Globulin 2.4 (2.0-3.5) g/dL Albumin/Globulin Ratio 0.8 L (1.3-2.8) Amylase 12 (10-90) U/L Lipase < 8 (7-80) U/L Urine Color Urine Appearance Urine pH (5.0-8.0) Ur Specific [place] (1.001-1.035) Urine Protein (NEGATIVE) mg/dL Urine Glucose (UA) (NEGATIVE) mg/dL Urine Ketones (NEGATIVE) mg/dL Urine Occult Blood (NEGATIVE) Urine Nitrite (NEGATIVE) Urine Bilirubin (NEGATIVE) Urine Urobilinogen (<2.0) EU/dL Ur Leukocyte Esterase (NEGATIVE) Urine RBC (0-2/HPF) Urine WBC (0-5/HPF) Ur Epithelial Cells (NONE-FEW) Urine Bacteria (NEGATIVE) 03/25/17 Range/Units 04:40 WBC (4.0-11.0) K/uL RBC (4.30-5.90) M/uL Hgb (12.0-16.0) g/dL Hct (36.0-46.0) % MCV (80.0-98.0) fL MCH (27.0-32.0) pg MCHC (31.0-37.0) g/dL RDW Std Deviation (28.0-62.0) fl RDW Coeff of [place] (11.0-15.0) % Plt Count (150-400) K/uL MPV (7.40-12.00) fL Add Manual Diff Neutrophils % (Manual) (48.0-80.0) % Band Neutrophils % % Lymphocytes % (Manual) (16.0-40.0) % Basophils % (Manual) (0.0-1.5) % Metamyelocytes % % Nucleated RBC % /100WBC Absolute Seg Neuts Band Neutrophils # Lymphocytes # (Manual) Basophils # (Manual) Absolute Metamyelocyte Nucleated RBCs # K/uL D-Dimer, Quantitative (0.0-0.52) mg/LFEU ABG pH (7.35-7.45) ABG pCO2 (35-45) mmHG ABG pO2 (75-100) mmHG ABG HCO3 (22-26) mEq/L ABG Total CO2 ABG Base Excess (-2.0-2.0) Lactate 1.6 (0.20-2.00) mmol/L Sodium (136-146) mmol/L Potassium (3.5-5.1) mmol/L Chloride (98-110) mmol/L Carbon Dioxide (21-31) mmol/L BUN (6.0-23.0) mg/dL Creatinine (0.6-1.5) mg/dL Est Cr Clr Drug Dosing mL/min Estimated GFR (MDRD) ml/min Glucose (60-110) mg/dL Calcium (8.8-10.8) mg/dL Phosphorus (2.4-4.7) mg/dL Magnesium (1.5-2.3) mEq/L Total Bilirubin (0.1-1.5) mg/dL Direct Bilirubin (0.0-0.5) mg/dL AST (5-40) IU/L ALT (8-54) IU/L Alkaline Phosphatase (40-150) Lactate Dehydrogenase (125-220) IU/L Troponin I (0.0-0.29) NG/ML B-Natriuretic Peptide (<100) PG/ML Total Protein (6.0-8.0) g/dL Albumin (3.5-5.0) g/dL Globulin (2.0-3.5) g/dL Albumin/Globulin Ratio (1.3-2.8) Amylase (10-90) U/L Lipase (7-80) U/L Urine Color Urine Appearance Urine pH (5.0-8.0) Ur Specific [place] (1.001-1.035) Urine Protein (NEGATIVE) mg/dL Urine Glucose (UA) (NEGATIVE) mg/dL Urine Ketones (NEGATIVE) mg/dL Urine Occult Blood (NEGATIVE) Urine Nitrite (NEGATIVE) Urine Bilirubin (NEGATIVE) Urine Urobilinogen (<2.0) EU/dL Ur Leukocyte Esterase (NEGATIVE) Urine RBC (0-2/HPF) Urine WBC (0-5/HPF) Ur Epithelial Cells (NONE-FEW) Urine Bacteria (NEGATIVE) Med Orders - Current: Current Medications Acetaminophen (Tylenol) 650 mg PO Q6H PRN PRN Reason: Temperature Last Admin: 03/24/17 21:30 Dose: 650 mg Enoxaparin Sodium (Lovenox) 40 mg SUBCUT Q24H [facility] Hydromorphone HCl (Dilaudid) 0.25 mg IVPUSH Q2H PRN PRN Reason: Pain (severe 7-10) Last Admin: 03/25/17 07:15 Dose: 0.25 mg Clindamycin Phosphate 900 mg/ (Premix) 50 mls @ 100 mls/hr IV Q8H [facility] Last Admin: 03/25/17 03:50 Dose: 100 mls/hr Meropenem 1 gm/ Sodium (Chloride) 100 mls @ 200 mls/hr IV Q8H [facility] Last Admin: 03/25/17 03:27 Dose: 200 mls/hr Gentamicin Sulfate 132 mg/ (Sodium Chloride) 103.3 mls @ 206.6 mls/hr IV Q8H [facility] Vancomycin HCl 1.5 gm/ Sodium (Chloride) 500 mls @ 333.333 mls/hr IV Q12H [facility] Ondansetron HCl (Zofran Odt) 4 mg PO Q4H PRN PRN Reason: nausea, able to take PO Sodium Chloride (Saline Flush) 10 ml FLUSH ASDIRECTED PRN PRN Reason: Keep Vein Open Sodium Chloride (Saline Flush) 2.5 ml FLUSH ASDIRECTED PRN PRN Reason: Keep Vein Open Vancomycin HCl (Pharmacy To Dose - Vancomycin) 1 dose .XX ASDIRECTED [facility] Discontinued Medications Enoxaparin Sodium (Lovenox) 40 mg SUBCUT Q12HR [facility] Last Admin: 03/24/17 20:36 Dose: 40 mg Furosemide (Lasix) 40 mg IVPUSH NOW ONE Stop: 03/24/17 18:01 Last Admin: 03/24/17 18:15 Dose: 40 mg Gentamicin Sulfate (Gentamicin) 132 mg IV Q8H [facility] Last Admin: 03/25/17 02:55 Dose: 132 mg Hydromorphone HCl (Dilaudid) 0.5 mg IVPUSH ONETIME ONE Stop: 03/24/17 14:44 Last Admin: 03/24/17 15:00 Dose: 0.5 mg Hydromorphone HCl (Dilaudid) 0.25 mg IVPUSH Q2H PRN PRN Reason: Pain (severe 7-10) Sodium Chloride (Normal Saline) 1,000 mls @ 999 mls/hr IV .Bolus ONE Stop: 03/24/17 14:33 Last Admin: 03/24/17 14:00 Dose: 999 mls/hr Cefepime HCl 2 gm/ Premix 50 mls @ 100 mls/hr IV ONETIME ONE Stop: 03/24/17 14:15 Last Admin: 03/24/17 14:20 Dose: 100 mls/hr Vancomycin HCl 1,000 mg/ (Dextrose/Water) 250 mls @ 167 mls/hr IV ONETIME ONE Stop: 03/24/17 15:15 Last Admin: 03/24/17 15:33 Dose: Not Given Sodium Chloride (Normal Saline) 1,000 mls @ 999 mls/hr IV .Bolus ONE Stop: 03/24/17 14:47 Last Admin: 03/24/17 14:00 Dose: 999 mls/hr Vancomycin HCl 1,000 mg/ (Sodium Chloride) 100 mls @ 100 mls/hr IV ONETIME ONE Stop: 03/24/17 15:14 Vancomycin HCl 1,000 mg/ (Sodium Chloride) 250 mls @ 250 mls/hr IV ONETIME ONE Stop: 03/24/17 15:14 Last Admin: 03/24/17 15:32 Dose: Not Given Vancomycin HCl 1 gm/ Sodium (Chloride) 250 mls @ 166 mls/hr IV ONETIME ONE Stop: 03/24/17 15:54 Last Infusion: 03/24/17 14:26 Dose: 250 mls/hr Lactated Ringer's (Ringers, Lactated) 1,000 mls @ 999 mls/hr IV .BOLUS ONE Stop: 03/24/17 18:44 Last Admin: 03/24/17 18:01 Dose: Not Given Clindamycin Phosphate 900 mg/ (Sodium Chloride) 56 mls @ 100 mls/hr IV Q8H [facility] Last Admin: 03/24/17 19:07 Dose: Not Given Meropenem 1 gm/ Sodium (Chloride) 100 mls @ 200 mls/hr IV Q8H [facility] Last Admin: 03/24/17 21:07 Dose: 200 mls/hr Vancomycin HCl 1.25 gm/ Sodium (Chloride) 500 mls @ 333 mls/hr IV Q12H [facility] Last Admin: 03/25/17 02:08 Dose: 333 mls/hr Lactated Ringer's (Ringers, Lactated) 1,000 mls @ 1,000 mls/hr IV ONETIME ONE Stop: 03/25/17 01:29 Last Admin: 03/25/17 01:20 Dose: 1,000 mls/hr Magnesium Sulfate 2 gm/ Premix 50 mls @ 50 mls/hr IV ONETIME ONE Stop: 03/25/17 01:59 Last Admin: 03/25/17 01:43 Dose: 50 mls/hr Meropenem 1 gm/ Sodium (Chloride) 100 mls @ 200 mls/hr IV Q8H [facility] Last Admin: 03/25/17 06:42 Dose: Not Given Iopamidol (Isovue-370 (76%)) 48 ml IV ONETIME STA Stop: 03/25/17 00:24 Last Admin: 03/25/17 01:02 Dose: 48 ml - Exam General: alert, oriented, cooperative, mild distress (with activity) Lungs: Clear to auscultation (anterior), Crackles (slight posterior bases) Cardiovascular: Tachycardia Abdomen: bowel sounds present (decreased), guarding (voluntary), tenderness ( uterine) Extremities: no clubbing, no cyanosis, no calf tenderness, edema Skin: warm, dry, intact Neurological: no new focal deficit Psy/Mental Status: alert - Problem List & Annotations (1) Systemic inflammatory response syndrome (SIRS) SNOMED Code(s): 255711718 Code(s): R65.10 - SIRS OF NON-INFECTIOUS ORIGIN W/O ACUTE ORGAN DYSFUNCTION Status: Acute Priority: High Current Visit: Yes (2) Tachycardia SNOMED Code(s): 6240505 Code(s): R00.0 - TACHYCARDIA, UNSPECIFIED Status: Acute Current Visit: Yes - Problem List Review Problem List Initiated/Reviewed/Updated: Yes - My Orders Last 24 Hours: My Active Orders 03/24/17 19:15 Clindamycin Phosphate in D5W [Cleocin in D5W] 900 mg Premix Bag 1 bag IV Q8H 03/24/17 19:30 Communication Order [RC] ROUTINE 03/25/17 07:30 CULTURE URINE [RM] Routine 03/25/17 10:15 Gentamicin 132 mg Sodium Chloride 0.9% [Normal Saline] 100 ml IV Q8H - Assessment Assessment:: HD#1, PPD#5 S/p SAVD, IOL for GHTN Normotensive and no proteinuria LFTs are improving though plts lower Patient is feeling a little better per her report Less likely HELLP at this time High index of suspicion for endometritis with SIRS - Plan Plan:: Plan: Diuresis with cardiology advisement 2nd to significant tachycardia Echocardiogram u/s not working, will eventually have an echo Continue clindamycin and gentamicin for endometritis Will monitor closely but mostly likely endometritis with SIRS given improvement with antibiotics (subjective and objective per labs) Will round later this afternoon Will allow clear liquids for now (calculate into fluid restriction)
[2017-03-25] MEDS ORDERED: Furosemide 40 MG/4 ML VIAL IVPUSH ONE (08:17)
[2017-03-25] MEDS ORDERED: Albumin 25% 12.5 GM/50 ML BAG IV ONE ×3 (09:58→17:37)
[2017-03-25] MEDS: Albumin 25% 12.5 GM/50 ML BAG IV SCH ×2 (10:26→11:37)
[2017-03-25] MEDS ORDERED: Potassium Chloride 20 MEQ Tab.ER PO ONE (10:30)
[2017-03-25] MEDS ORDERED: D5 1/2 NS w/ 20 mEq/L KCl 1,000 ML IV SCH (11:30)
--- NOTE | 2017-03-25 11:37 | PCM.PN ---
- General Info Date of Service: 03/25/17 Admission Dx/Problem (Free Text): endometritis and sepsis Functional Status: Reports: pain controlled, tolerating diet (on liquids, wants more) - Review of Systems HEENT: Reports: other (dry mouth) Pulmonary: Reports: pleuritic chest pain (rib margins from abdominal pain) Cardiovascular: Reports: No Symptoms Gastrointestinal: Reports: Abdominal pain Genitourinary: Reports: no symptoms (has bunch) Musculoskeletal: Reports: other (still feels weakin thighs) - Patient Data Vitals - most recent: Last Vital Signs Temp 38.1 C 03/25/17 07:00 Pulse 143 H 03/25/17 06:00 Resp 39 H 03/25/17 09:00 BP 134/73 03/25/17 09:00 Pulse Ox 93 L 03/25/17 09:00 Weight - most recent: 87.9 kg I&O - last 24 hours: Intake & Output 03/24/17 03/25/17 03/25/17 22:59 06:59 14:59 Intake Total 250 2450 Output Total 4600 Balance 250 -2150 Lab Results last 24 hrs: Laboratory Results - last 24 hr 03/24/17 03/24/17 03/24/17 Range/Units 15:24 17:35 17:35 WBC (4.0-11.0) K/uL RBC (4.30-5.90) M/uL Hgb (12.0-16.0) g/dL Hct (36.0-46.0) % MCV (80.0-98.0) fL MCH (27.0-32.0) pg MCHC (31.0-37.0) g/dL RDW Std Deviation (28.0-62.0) fl RDW Coeff of Lucina (11.0-15.0) % Plt Count (150-400) K/uL MPV (7.40-12.00) fL Add Manual Diff Neutrophils % (Manual) (48.0-80.0) % Band Neutrophils % % Lymphocytes % (Manual) (16.0-40.0) % Basophils % (Manual) (0.0-1.5) % Metamyelocytes % % Nucleated RBC % /100WBC Absolute Seg Neuts Band Neutrophils # Lymphocytes # (Manual) Basophils # (Manual) Absolute Metamyelocyte Nucleated RBCs # K/uL D-Dimer, Quantitative (0.0-0.52) mg/LFEU ABG pH (7.35-7.45) ABG pCO2 (35-45) mmHG ABG pO2 (75-100) mmHG ABG HCO3 (22-26) mEq/L ABG Total CO2 ABG Base Excess (-2.0-2.0) Lactate (0.20-2.00) mmol/L Sodium (136-146) mmol/L Potassium (3.5-5.1) mmol/L Chloride (98-110) mmol/L Carbon Dioxide (21-31) mmol/L BUN (6.0-23.0) mg/dL Creatinine (0.6-1.5) mg/dL Est Cr Clr Drug Dosing mL/min Estimated GFR (MDRD) ml/min Glucose (60-110) mg/dL Calcium (8.8-10.8) mg/dL Phosphorus (2.4-4.7) mg/dL Magnesium (1.5-2.3) mEq/L Total Bilirubin (0.1-1.5) mg/dL Direct Bilirubin (0.0-0.5) mg/dL AST (5-40) IU/L ALT (8-54) IU/L Alkaline Phosphatase (40-150) Lactate Dehydrogenase 258 H (125-220) IU/L Troponin I (0.0-0.29) NG/ML B-Natriuretic Peptide 344 H (<100) PG/ML Total Protein (6.0-8.0) g/dL Albumin (3.5-5.0) g/dL Globulin (2.0-3.5) g/dL Albumin/Globulin Ratio (1.3-2.8) Amylase (10-90) U/L Lipase (7-80) U/L Urine Color YELLOW Urine Appearance CLEAR Urine pH 6.0 (5.0-8.0) Ur Specific [place] 1.010 (1.001-1.035) Urine Protein NEGATIVE (NEGATIVE) mg/dL Urine Glucose (UA) NEGATIVE (NEGATIVE) mg/dL Urine Ketones 15 H (NEGATIVE) mg/dL Urine Occult Blood TRACE-INTACT (NEGATIVE) Urine Nitrite NEGATIVE (NEGATIVE) Urine Bilirubin NEGATIVE (NEGATIVE) Urine Urobilinogen 0.2 (<2.0) EU/dL Ur Leukocyte Esterase NEGATIVE (NEGATIVE) Urine RBC 1-2 (0-2/HPF) Urine WBC 2-4 (0-5/HPF) Ur Epithelial Cells FEW (NONE-FEW) Urine Bacteria FEW (NEGATIVE) 03/24/17 03/24/17 03/24/17 Range/Units 17:35 17:35 19:08 WBC 4.72 (4.0-11.0) K/uL RBC 3.45 L (4.30-5.90) M/uL Hgb 9.1 L (12.0-16.0) g/dL Hct 28.4 L (36.0-46.0) % MCV 82.3 (80.0-98.0) fL MCH 26.4 L (27.0-32.0) pg MCHC 32.0 (31.0-37.0) g/dL RDW Std Deviation 47.7 (28.0-62.0) fl RDW Coeff of Lucina 16 H (11.0-15.0) % Plt Count 143 L (150-400) K/uL MPV 10.50 (7.40-12.00) fL Add Manual Diff Neutrophils % (Manual) (48.0-80.0) % Band Neutrophils % % Lymphocytes % (Manual) (16.0-40.0) % Basophils % (Manual) (0.0-1.5) % Metamyelocytes % % Nucleated RBC % 0.0 /100WBC Absolute Seg Neuts Band Neutrophils # Lymphocytes # (Manual) Basophils # (Manual) Absolute Metamyelocyte Nucleated RBCs # 0 K/uL D-Dimer, Quantitative 12.21 H (0.0-0.52) mg/LFEU ABG pH (7.35-7.45) ABG pCO2 (35-45) mmHG ABG pO2 (75-100) mmHG ABG HCO3 (22-26) mEq/L ABG Total CO2 ABG Base Excess (-2.0-2.0) Lactate 3.2 H (0.20-2.00) mmol/L Sodium (136-146) mmol/L Potassium (3.5-5.1) mmol/L Chloride (98-110) mmol/L Carbon Dioxide (21-31) mmol/L BUN (6.0-23.0) mg/dL Creatinine (0.6-1.5) mg/dL Est Cr Clr Drug Dosing mL/min Estimated GFR (MDRD) ml/min Glucose (60-110) mg/dL Calcium (8.8-10.8) mg/dL Phosphorus (2.4-4.7) mg/dL Magnesium (1.5-2.3) mEq/L Total Bilirubin (0.1-1.5) mg/dL Direct Bilirubin (0.0-0.5) mg/dL AST (5-40) IU/L ALT (8-54) IU/L Alkaline Phosphatase (40-150) Lactate Dehydrogenase (125-220) IU/L Troponin I (0.0-0.29) NG/ML B-Natriuretic Peptide (<100) PG/ML Total Protein (6.0-8.0) g/dL Albumin (3.5-5.0) g/dL Globulin (2.0-3.5) g/dL Albumin/Globulin Ratio (1.3-2.8) Amylase (10-90) U/L Lipase (7-80) U/L Urine Color Urine Appearance Urine pH (5.0-8.0) Ur Specific [place] (1.001-1.035) Urine Protein (NEGATIVE) mg/dL Urine Glucose (UA) (NEGATIVE) mg/dL Urine Ketones (NEGATIVE) mg/dL Urine Occult Blood (NEGATIVE) Urine Nitrite (NEGATIVE) Urine Bilirubin (NEGATIVE) Urine Urobilinogen (<2.0) EU/dL Ur Leukocyte Esterase (NEGATIVE) Urine RBC (0-2/HPF) Urine WBC (0-5/HPF) Ur Epithelial Cells (NONE-FEW) Urine Bacteria (NEGATIVE) 03/24/17 03/24/17 03/24/17 Range/Units 22:40 22:40 22:40 WBC 6.65 (4.0-11.0) K/uL RBC 3.52 L (4.30-5.90) M/uL Hgb 9.3 L (12.0-16.0) g/dL Hct 28.8 L (36.0-46.0) % MCV 81.8 (80.0-98.0) fL MCH 26.4 L (27.0-32.0) pg MCHC 32.3 (31.0-37.0) g/dL RDW Std Deviation 46.8 (28.0-62.0) fl RDW Coeff of Lucina 16 H (11.0-15.0) % Plt Count 136 L (150-400) K/uL MPV 9.60 (7.40-12.00) fL Add Manual Diff YES Neutrophils % (Manual) 41 L (48.0-80.0) % Band Neutrophils % 49 % Lymphocytes % (Manual) 8 L (16.0-40.0) % Basophils % (Manual) (0.0-1.5) % Metamyelocytes % 2 % Nucleated RBC % 0.0 /100WBC Absolute Seg Neuts 2.7 Band Neutrophils # 3.3 Lymphocytes # (Manual) 0.5 Basophils # (Manual) Absolute Metamyelocyte 0.1 Nucleated RBCs # 0 K/uL D-Dimer, Quantitative (0.0-0.52) mg/LFEU ABG pH (7.35-7.45) ABG pCO2 (35-45) mmHG ABG pO2 (75-100) mmHG ABG HCO3 (22-26) mEq/L ABG Total CO2 ABG Base Excess (-2.0-2.0) Lactate 2.5 H (0.20-2.00) mmol/L Sodium 141 (136-146) mmol/L Potassium 3.4 L (3.5-5.1) mmol/L Chloride 112 H (98-110) mmol/L Carbon Dioxide 13 L (21-31) mmol/L BUN 13 (6.0-23.0) mg/dL Creatinine 0.8 (0.6-1.5) mg/dL Est Cr Clr Drug Dosing 94.90 mL/min Estimated GFR (MDRD) > 60.0 ml/min Glucose 63 (60-110) mg/dL Calcium 8.1 L (8.8-10.8) mg/dL Phosphorus 3.9 (2.4-4.7) mg/dL Magnesium 1.1 L (1.5-2.3) mEq/L Total Bilirubin 1.2 (0.1-1.5) mg/dL Direct Bilirubin 0.7 H (0.0-0.5) mg/dL AST 124 H (5-40) IU/L ALT 90 H (8-54) IU/L Alkaline Phosphatase 98 (40-150) Lactate Dehydrogenase (125-220) IU/L Troponin I (0.0-0.29) NG/ML B-Natriuretic Peptide (<100) PG/ML Total Protein 4.8 L (6.0-8.0) g/dL Albumin 2.2 L (3.5-5.0) g/dL Globulin 2.6 (2.0-3.5) g/dL Albumin/Globulin Ratio 0.9 L (1.3-2.8) Amylase (10-90) U/L Lipase (7-80) U/L Urine Color Urine Appearance Urine pH (5.0-8.0) Ur Specific [place] (1.001-1.035) Urine Protein (NEGATIVE) mg/dL Urine Glucose (UA) (NEGATIVE) mg/dL Urine Ketones (NEGATIVE) mg/dL Urine Occult Blood (NEGATIVE) Urine Nitrite (NEGATIVE) Urine Bilirubin (NEGATIVE) Urine Urobilinogen (<2.0) EU/dL Ur Leukocyte Esterase (NEGATIVE) Urine RBC (0-2/HPF) Urine WBC (0-5/HPF) Ur Epithelial Cells (NONE-FEW) Urine Bacteria (NEGATIVE) 03/24/17 03/24/17 03/24/17 Range/Units 22:40 22:40 23:15 WBC (4.0-11.0) K/uL RBC (4.30-5.90) M/uL Hgb (12.0-16.0) g/dL Hct (36.0-46.0) % MCV (80.0-98.0) fL MCH (27.0-32.0) pg MCHC (31.0-37.0) g/dL RDW Std Deviation (28.0-62.0) fl RDW Coeff of Lucina (11.0-15.0) % Plt Count (150-400) K/uL MPV (7.40-12.00) fL Add Manual Diff Neutrophils % (Manual) (48.0-80.0) % Band Neutrophils % % Lymphocytes % (Manual) (16.0-40.0) % Basophils % (Manual) (0.0-1.5) % Metamyelocytes % % Nucleated RBC % /100WBC Absolute Seg Neuts Band Neutrophils # Lymphocytes # (Manual) Basophils # (Manual) Absolute Metamyelocyte Nucleated RBCs # K/uL D-Dimer, Quantitative (0.0-0.52) mg/LFEU ABG pH 7.461 H (7.35-7.45) ABG pCO2 23 L (35-45) mmHG ABG pO2 85 (75-100) mmHG ABG HCO3 16 L (22-26) mEq/L ABG Total CO2 15.1 ABG Base Excess -6.7 L (-2.0-2.0) Lactate (0.20-2.00) mmol/L Sodium (136-146) mmol/L Potassium (3.5-5.1) mmol/L Chloride (98-110) mmol/L Carbon Dioxide (21-31) mmol/L BUN (6.0-23.0) mg/dL Creatinine (0.6-1.5) mg/dL Est Cr Clr Drug Dosing mL/min Estimated GFR (MDRD) ml/min Glucose (60-110) mg/dL Calcium (8.8-10.8) mg/dL Phosphorus (2.4-4.7) mg/dL Magnesium (1.5-2.3) mEq/L Total Bilirubin (0.1-1.5) mg/dL Direct Bilirubin (0.0-0.5) mg/dL AST (5-40) IU/L ALT (8-54) IU/L Alkaline Phosphatase (40-150) Lactate Dehydrogenase (125-220) IU/L Troponin I 0.19 (0.0-0.29) NG/ML B-Natriuretic Peptide 381 H (<100) PG/ML Total Protein (6.0-8.0) g/dL Albumin (3.5-5.0) g/dL Globulin (2.0-3.5) g/dL Albumin/Globulin Ratio (1.3-2.8) Amylase (10-90) U/L Lipase (7-80) U/L Urine Color Urine Appearance Urine pH (5.0-8.0) Ur Specific [place] (1.001-1.035) Urine Protein (NEGATIVE) mg/dL Urine Glucose (UA) (NEGATIVE) mg/dL Urine Ketones (NEGATIVE) mg/dL Urine Occult Blood (NEGATIVE) Urine Nitrite (NEGATIVE) Urine Bilirubin (NEGATIVE) Urine Urobilinogen (<2.0) EU/dL Ur Leukocyte Esterase (NEGATIVE) Urine RBC (0-2/HPF) Urine WBC (0-5/HPF) Ur Epithelial Cells (NONE-FEW) Urine Bacteria (NEGATIVE) 03/25/17 03/25/17 03/25/17 Range/Units 04:35 04:35 04:35 WBC 7.26 (4.0-11.0) K/uL RBC 3.27 L (4.30-5.90) M/uL Hgb 8.5 L (12.0-16.0) g/dL Hct 26.6 L (36.0-46.0) % MCV 81.3 (80.0-98.0) fL MCH 26.0 L (27.0-32.0) pg MCHC 32.0 (31.0-37.0) g/dL RDW Std Deviation 46.9 (28.0-62.0) fl RDW Coeff of Lucina 16 H (11.0-15.0) % Plt Count 110 L (150-400) K/uL MPV 9.90 (7.40-12.00) fL Add Manual Diff YES Neutrophils % (Manual) 60 (48.0-80.0) % Band Neutrophils % 27 % Lymphocytes % (Manual) 8 L (16.0-40.0) % Basophils % (Manual) 1 (0.0-1.5) % Metamyelocytes % 4 % Nucleated RBC % 0.0 /100WBC Absolute Seg Neuts 4.4 Band Neutrophils # 2.0 Lymphocytes # (Manual) 0.6 Basophils # (Manual) 0 Absolute Metamyelocyte 0.3 Nucleated RBCs # 0 K/uL D-Dimer, Quantitative (0.0-0.52) mg/LFEU ABG pH (7.35-7.45) ABG pCO2 (35-45) mmHG ABG pO2 (75-100) mmHG ABG HCO3 (22-26) mEq/L ABG Total CO2 ABG Base Excess (-2.0-2.0) Lactate (0.20-2.00) mmol/L Sodium 140 (136-146) mmol/L Potassium 3.4 L (3.5-5.1) mmol/L Chloride 113 H (98-110) mmol/L Carbon Dioxide 13 L (21-31) mmol/L BUN 15 (6.0-23.0) mg/dL Creatinine 0.8 (0.6-1.5) mg/dL Est Cr Clr Drug Dosing TNP mL/min Estimated GFR (MDRD) > 60.0 ml/min Glucose 67 (60-110) mg/dL Calcium 7.8 L (8.8-10.8) mg/dL Phosphorus (2.4-4.7) mg/dL Magnesium (1.5-2.3) mEq/L Total Bilirubin 1.0 (0.1-1.5) mg/dL Direct Bilirubin (0.0-0.5) mg/dL AST 102 H (5-40) IU/L ALT 74 H (8-54) IU/L Alkaline Phosphatase 99 (40-150) Lactate Dehydrogenase (125-220) IU/L Troponin I (0.0-0.29) NG/ML B-Natriuretic Peptide (<100) PG/ML Total Protein 4.4 L (6.0-8.0) g/dL Albumin 2.0 L (3.5-5.0) g/dL Globulin 2.4 (2.0-3.5) g/dL Albumin/Globulin Ratio 0.8 L (1.3-2.8) Amylase 12 (10-90) U/L Lipase < 8 (7-80) U/L Urine Color Urine Appearance Urine pH (5.0-8.0) Ur Specific [place] (1.001-1.035) Urine Protein (NEGATIVE) mg/dL Urine Glucose (UA) (NEGATIVE) mg/dL Urine Ketones (NEGATIVE) mg/dL Urine Occult Blood (NEGATIVE) Urine Nitrite (NEGATIVE) Urine Bilirubin (NEGATIVE) Urine Urobilinogen (<2.0) EU/dL Ur Leukocyte Esterase (NEGATIVE) Urine RBC (0-2/HPF) Urine WBC (0-5/HPF) Ur Epithelial Cells (NONE-FEW) Urine Bacteria (NEGATIVE) 03/25/17 Range/Units 04:40 WBC (4.0-11.0) K/uL RBC (4.30-5.90) M/uL Hgb (12.0-16.0) g/dL Hct (36.0-46.0) % MCV (80.0-98.0) fL MCH (27.0-32.0) pg MCHC (31.0-37.0) g/dL RDW Std Deviation (28.0-62.0) fl RDW Coeff of Lucina (11.0-15.0) % Plt Count (150-400) K/uL MPV (7.40-12.00) fL Add Manual Diff Neutrophils % (Manual) (48.0-80.0) % Band Neutrophils % % Lymphocytes % (Manual) (16.0-40.0) % Basophils % (Manual) (0.0-1.5) % Metamyelocytes % % Nucleated RBC % /100WBC Absolute Seg Neuts Band Neutrophils # Lymphocytes # (Manual) Basophils # (Manual) Absolute Metamyelocyte Nucleated RBCs # K/uL D-Dimer, Quantitative (0.0-0.52) mg/LFEU ABG pH (7.35-7.45) ABG pCO2 (35-45) mmHG ABG pO2 (75-100) mmHG ABG HCO3 (22-26) mEq/L ABG Total CO2 ABG Base Excess (-2.0-2.0) Lactate 1.6 (0.20-2.00) mmol/L Sodium (136-146) mmol/L Potassium (3.5-5.1) mmol/L Chloride (98-110) mmol/L Carbon Dioxide (21-31) mmol/L BUN (6.0-23.0) mg/dL Creatinine (0.6-1.5) mg/dL Est Cr Clr Drug Dosing mL/min Estimated GFR (MDRD) ml/min Glucose (60-110) mg/dL Calcium (8.8-10.8) mg/dL Phosphorus (2.4-4.7) mg/dL Magnesium (1.5-2.3) mEq/L Total Bilirubin (0.1-1.5) mg/dL Direct Bilirubin (0.0-0.5) mg/dL AST (5-40) IU/L ALT (8-54) IU/L Alkaline Phosphatase (40-150) Lactate Dehydrogenase (125-220) IU/L Troponin I (0.0-0.29) NG/ML B-Natriuretic Peptide (<100) PG/ML Total Protein (6.0-8.0) g/dL Albumin (3.5-5.0) g/dL Globulin (2.0-3.5) g/dL Albumin/Globulin Ratio (1.3-2.8) Amylase (10-90) U/L Lipase (7-80) U/L Urine Color Urine Appearance Urine pH (5.0-8.0) Ur Specific [place] (1.001-1.035) Urine Protein (NEGATIVE) mg/dL Urine Glucose (UA) (NEGATIVE) mg/dL Urine Ketones (NEGATIVE) mg/dL Urine Occult Blood (NEGATIVE) Urine Nitrite (NEGATIVE) Urine Bilirubin (NEGATIVE) Urine Urobilinogen (<2.0) EU/dL Ur Leukocyte Esterase (NEGATIVE) Urine RBC (0-2/HPF) Urine WBC (0-5/HPF) Ur Epithelial Cells (NONE-FEW) Urine Bacteria (NEGATIVE) Med Orders - Current: Current Medications Acetaminophen (Tylenol) 650 mg PO Q6H PRN PRN Reason: Temperature Last Admin: 03/25/17 07:57 Dose: 650 mg Enoxaparin Sodium (Lovenox) 40 mg SUBCUT Q24H [facility] Hydromorphone HCl (Dilaudid) 0.25 mg IVPUSH Q2H PRN PRN Reason: Pain (severe 7-10) Last Admin: 03/25/17 09:36 Dose: 0.25 mg Clindamycin Phosphate 900 mg/ (Premix) 50 mls @ 100 mls/hr IV Q8H [facility] Last Admin: 03/25/17 11:05 Dose: 100 mls/hr Meropenem 1 gm/ Sodium (Chloride) 100 mls @ 200 mls/hr IV Q8H [facility] Last Admin: 03/25/17 10:44 Dose: 200 mls/hr Gentamicin Sulfate 132 mg/ (Sodium Chloride) 103.3 mls @ 206.6 mls/hr IV Q8H [facility] Last Admin: 03/25/17 10:17 Dose: 206.6 mls/hr Vancomycin HCl 1.5 gm/ Sodium (Chloride) 500 mls @ 333.333 mls/hr IV Q12H [facility] Albumin Human (Flexbumin 25%) 12.5 gm in 50 mls @ 50 mls/hr IV Q1H [facility] Stop: 03/25/17 12:29 Last Admin: 03/25/17 10:26 Dose: 50 mls/hr Ondansetron HCl (Zofran Odt) 4 mg PO Q4H PRN PRN Reason: nausea, able to take PO Sodium Chloride (Saline Flush) 10 ml FLUSH ASDIRECTED PRN PRN Reason: Keep Vein Open Sodium Chloride (Saline Flush) 2.5 ml FLUSH ASDIRECTED PRN PRN Reason: Keep Vein Open Vancomycin HCl (Pharmacy To Dose - Vancomycin) 1 dose .XX ASDIRECTED KAILASH Discontinued Medications Enoxaparin Sodium (Lovenox) 40 mg SUBCUT Q12HR [facility] Last Admin: 03/24/17 20:36 Dose: 40 mg Furosemide (Lasix) 40 mg IVPUSH NOW ONE Stop: 03/24/17 18:01 Last Admin: 03/24/17 18:15 Dose: 40 mg Furosemide (Lasix) 40 mg IVPUSH NOW ONE Stop: 03/25/17 08:18 Last Admin: 03/25/17 08:30 Dose: 40 mg Gentamicin Sulfate (Gentamicin) 132 mg IV Q8H [facility] Last Admin: 03/25/17 02:55 Dose: 132 mg Hydromorphone HCl (Dilaudid) 0.5 mg IVPUSH ONETIME ONE Stop: 03/24/17 14:44 Last Admin: 03/24/17 15:00 Dose: 0.5 mg Hydromorphone HCl (Dilaudid) 0.25 mg IVPUSH Q2H PRN PRN Reason: Pain (severe 7-10) Sodium Chloride (Normal Saline) 1,000 mls @ 999 mls/hr IV .Bolus ONE Stop: 03/24/17 14:33 Last Admin: 03/24/17 14:00 Dose: 999 mls/hr Cefepime HCl 2 gm/ Premix 50 mls @ 100 mls/hr IV ONETIME ONE Stop: 03/24/17 14:15 Last Admin: 03/24/17 14:20 Dose: 100 mls/hr Vancomycin HCl 1,000 mg/ (Dextrose/Water) 250 mls @ 167 mls/hr IV ONETIME ONE Stop: 03/24/17 15:15 Last Admin: 03/24/17 15:33 Dose: Not Given Sodium Chloride (Normal Saline) 1,000 mls @ 999 mls/hr IV .Bolus ONE Stop: 03/24/17 14:47 Last Admin: 03/24/17 14:00 Dose: 999 mls/hr Vancomycin HCl 1,000 mg/ (Sodium Chloride) 100 mls @ 100 mls/hr IV ONETIME ONE Stop: 03/24/17 15:14 Vancomycin HCl 1,000 mg/ (Sodium Chloride) 250 mls @ 250 mls/hr IV ONETIME ONE Stop: 03/24/17 15:14 Last Admin: 03/24/17 15:32 Dose: Not Given Vancomycin HCl 1 gm/ Sodium (Chloride) 250 mls @ 166 mls/hr IV ONETIME ONE Stop: 03/24/17 15:54 Last Infusion: 03/24/17 14:26 Dose: 250 mls/hr Lactated Ringer's (Ringers, Lactated) 1,000 mls @ 999 mls/hr IV .BOLUS ONE Stop: 03/24/17 18:44 Last Admin: 03/24/17 18:01 Dose: Not Given Clindamycin Phosphate 900 mg/ (Sodium Chloride) 56 mls @ 100 mls/hr IV Q8H [facility] Last Admin: 03/24/17 19:07 Dose: Not Given Meropenem 1 gm/ Sodium (Chloride) 100 mls @ 200 mls/hr IV Q8H [facility] Last Admin: 03/24/17 21:07 Dose: 200 mls/hr Vancomycin HCl 1.25 gm/ Sodium (Chloride) 500 mls @ 333 mls/hr IV Q12H [facility] Last Admin: 03/25/17 02:08 Dose: 333 mls/hr Lactated Ringer's (Ringers, Lactated) 1,000 mls @ 1,000 mls/hr IV ONETIME ONE Stop: 03/25/17 01:29 Last Admin: 03/25/17 01:20 Dose: 1,000 mls/hr Magnesium Sulfate 2 gm/ Premix 50 mls @ 50 mls/hr IV ONETIME ONE Stop: 03/25/17 01:59 Last Admin: 03/25/17 01:43 Dose: 50 mls/hr Meropenem 1 gm/ Sodium (Chloride) 100 mls @ 200 mls/hr IV Q8H [facility] Last Admin: 03/25/17 06:42 Dose: Not Given Albumin Human (Flexbumin 25%) 12.5 gm in 50 mls @ 100 mls/hr IV ONETIME ONE Stop: 03/25/17 10:27 Last Admin: 03/25/17 10:43 Dose: Not Given Iopamidol (Isovue-370 (76%)) 48 ml IV ONETIME STA Stop: 03/25/17 00:24 Last Admin: 03/25/17 01:02 Dose: 48 ml Potassium Chloride (Klor-Con M20) 40 meq PO ONETIME ONE Stop: 03/25/17 10:31 Last Admin: 03/25/17 10:37 Dose: 40 meq - Exam Quality Assessment: urine catheter General: alert, oriented Neck: supple Lungs: Clear to auscultation Cardiovascular: Regular Rate, Tachycardia Abdomen: tenderness (toeven light touch with rebound) (Female) Exam: Deferred Extremities: edema (markedly improved) Skin: warm, dry - Problem List Review Problem List Initiated/Reviewed/Updated: Yes - My Orders Last 24 Hours: My Active Orders 03/24/17 17:23 Consult to Physician [CONS] Urgent 03/24/17 17:24 Notify Provider Consults [RC] ASDIRECTED 03/24/17 18:00 Admission Status [Patient Status] [ADT] Routine 03/24/17 18:39 Oxygen Therapy [RC] PRN Vital Signs [RC] Q4H Ondansetron [Zofran ODT] 4 mg PO Q4H PRN Elastic Wrap [OM.PC] Routine Resuscitation Status Routine 03/24/17 18:41 Cardiac Monitoring [RC] Q8H Antiembolic Hose [OM.PC] Per Unit Routine 03/24/17 18:44 Antiembolic Devices [RC] PER UNIT ROUTINE 03/24/17 18:57 HYDROmorphone [Dilaudid] 0.25 mg IVPUSH Q2H PRN 03/24/17 20:30 Vancomycin Pharmacy to Dose [Pharmacy to Dose - Vancomycin] 1 dose .XX ASDIRECTED 03/24/17 21:35 Acetaminophen [Tylenol] 650 mg PO Q6H PRN 03/25/17 03:00 Meropenem [Merrem] 1 gm Sodium Chloride 0.9% [Normal Saline] 100 ml IV Q8H 03/25/17 11:30 D5 1/2 NS w/ 20 mEq/L KCl 1,000 ml IV ASDIRECTED 03/25/17 14:00 Vancomycin 1.5 gm Sodium Chloride 0.9% [Normal Saline] 500 ml IV Q12H 03/25/17 21:00 Enoxaparin [Lovenox] 40 mg SUBCUT Q24H 03/25/17 Lunch Regular Diet [DIET] 03/26/17 01:30 VANCOMYCIN TROUGH [CHEM] Routine - Assessment Assessment:: HD#1, PPD#5 S/p SAVD, IOL for GHTN Normotensive and no proteinuria LFTs are improving though plts lower Patient is feeling a little better per her report Less likely HELLP at this time High index of suspicion for endometritis with SIRS looks and feels a bit better Heart rate still about 150 I&O + about 2500 K low plan getting albumen will add KCL and fluid advance diet - Plan Plan:: Plan: Diuresis with cardiology advisement 2nd to significant tachycardia Echocardiogram u/s not working, will eventually have an echo Continue clindamycin and gentamicin for endometritis Will monitor closely but mostly likely endometritis with SIRS given improvement with antibiotics (subjective and objective per labs) Will round later this afternoon Will allow clear liquids for now (calculate into fluid restriction)
[2017-03-25] MEDS ORDERED: Vancomycin 1.5 GM in Sodium Chloride 0.9% 500 ML IV SCH (14:00)
[2017-03-25] MEDS ORDERED: diphenhydrAMINE 50 MG/ML SDV IVPUSH ONE (15:19)
[2017-03-25] MEDS ORDERED: Ranitidine 15 MG/ML Syrup 10 ML UD Cup PO STA (15:20)
[2017-03-25] MEDS ORDERED: Linezolid 600 MG in Premix Bag 1 BAG IV SCH (15:30)
--- NOTE | 2017-03-25 15:34 | CR ---
EXAM DATE: 03/24/17 PATIENT'S AGE: 26 Patient: DAISY POLLARD Facility: [place], [place] Site . Site : 1990 Study: XRay Chest [id number] 10:57:33 PM Ordering Physician: Lionel Vu Final Report: INDICATION: Tachypnea TECHNIQUE: Chest radiograph 1 view COMPARISON: Earlier study on 03/24/2017 at 12:30 a.m. FINDINGS: Cardiovascular and mediastinum: The heart silhouette is normal in size and morphology. The mediastinum is normal in appearance. Lungs and pleural spaces: Increased central vascular congestion and mildly increased. Interstitial opacification. Patchy opacification of the medial right lung base increased. Bones and soft tissues: No significant findings. IMPRESSION: 1. Possible mild interstitial edema with developing infiltrate at the medial right lung base. Interval changes from study earlier on 03/24/2017. Dictated by Delroy Ramirez MD @ 03/24/2017 11:13:26 PM Dictated by: Delroy Ramirez MD @ 03/24/2017 23:13:33 (Electronic Signature) Report Signed by Proxy. JAMAR
--- NOTE | 2017-03-25 15:36 | CT ---
EXAM DATE: 03/24/17 PATIENT'S AGE: 26 Patient: DAISY POLLARD Facility: [place], [place] Site . Site : 1990 Study: CT Chest Angio [id number] 1:27:28 AM Ordering Physician: Lionel Vu Final Report: INDICATION: Shortness of breath TECHNIQUE: CT chest pulmonary angiogram acquired with i.v. contrast. Coronal and sagittal reformats were obtained. COMPARISON: None FINDINGS: Cardiovascular structures: The pulmonary arteries are unremarkable in appearance with no evidence of acute pulmonary embolism. The heart has an unremarkable size. There appears to be transmural enhancement seen in the left ventricular apex. No sign of aneurysm or dissection in the thoracic aorta. Mediastinum and carlos: No mass or adenopathy seen. Lungs: Bibasilar segmental atelectasis seen and posterior basal segment. Pleura and pericardium: Small bilateral pleural effusions are seen. No significant pericardial effusion is present. Chest wall and axilla: No mass or adenopathy seen. Bones: No significant findings. Upper abdomen: A small amount of ascites noted in the upper abdomen. IMPRESSION: 1. No CT evidence of pulmonary embolism seen. 2. Small bilateral pleural effusions are present with bibasilar segmental atelectasis seen. 3. A small amount of ascites seen in the visualized upper abdomen. 4. There appears to be transmural enhancement seen in the left ventricular apex. Correlation with clinical history is recommended to exclude myocarditis or myocardial ischemia. Dictated by Harley Welsh MD @ 03/25/2017 1:38:59 AM Dictated by: Harley Welsh MD @ 03/25/2017 01:39:07 (Electronic Signature) Report Signed by Proxy. JMAAR
[2017-03-25] MEDS ORDERED: Metoprolol Tartrate 5 MG/5 ML SDV IVPUSH ONE ×2 (17:34→17:44)
--- NOTE | 2017-03-25 18:00 | PCM.PN ---
- General Info Date of Service: 03/25/17 Admission Dx/Problem (Free Text): 26F POD 4 with fever gram positive bacteremia, sepsis syndrome, with respiratory failure, with low albumin, elevated LFT, tachycardia, Subjective Update: she stated that she still in pain for her abdomen, felt SOB, and she was anxious - Review of Systems General: Reports: Fever, Weakness, Fatigue HEENT: Reports: no symptoms Pulmonary: Reports: shortness of breath Cardiovascular: Reports: Chest Pain, Palpitations Gastrointestinal: Reports: Abdominal pain, Decreased appetite Neurological: Reports: Weakness - Patient Data Vitals - most recent: Last Vital Signs Temp 37.2 C 03/25/17 12:00 Pulse 166 H 03/25/17 17:38 Resp 50 H 03/25/17 16:00 BP 136/69 03/25/17 17:38 Pulse Ox 90 L 03/25/17 16:00 Weight - most recent: 87.9 kg I&O - last 24 hours: Intake & Output 03/25/17 03/25/17 03/25/17 06:59 14:59 22:59 Intake Total 2450 350 1366 Output Total 4600 2950 Balance -2150 350 -1584 Lab Results last 24 hrs: Laboratory Results - last 24 hr 03/24/17 03/24/17 03/24/17 Range/Units 17:35 17:35 17:35 WBC (4.0-11.0) K/uL RBC (4.30-5.90) M/uL Hgb (12.0-16.0) g/dL Hct (36.0-46.0) % MCV (80.0-98.0) fL MCH (27.0-32.0) pg MCHC (31.0-37.0) g/dL RDW Std Deviation (28.0-62.0) fl RDW Coeff of Lucina (11.0-15.0) % Plt Count (150-400) K/uL MPV (7.40-12.00) fL Add Manual Diff Neutrophils % (Manual) (48.0-80.0) % Band Neutrophils % % Lymphocytes % (Manual) (16.0-40.0) % Basophils % (Manual) (0.0-1.5) % Metamyelocytes % % Nucleated RBC % /100WBC Absolute Seg Neuts Band Neutrophils # Lymphocytes # (Manual) Basophils # (Manual) Absolute Metamyelocyte Nucleated RBCs # K/uL D-Dimer, Quantitative 12.21 H (0.0-0.52) mg/LFEU ABG pH (7.35-7.45) ABG pCO2 (35-45) mmHG ABG pO2 (75-100) mmHG ABG HCO3 (22-26) mEq/L ABG Total CO2 ABG Base Excess (-2.0-2.0) Lactate (0.20-2.00) mmol/L Sodium (136-146) mmol/L Potassium (3.5-5.1) mmol/L Chloride (98-110) mmol/L Carbon Dioxide (21-31) mmol/L BUN (6.0-23.0) mg/dL Creatinine (0.6-1.5) mg/dL Est Cr Clr Drug Dosing mL/min Estimated GFR (MDRD) ml/min Glucose (60-110) mg/dL Calcium (8.8-10.8) mg/dL Phosphorus (2.4-4.7) mg/dL Magnesium (1.5-2.3) mEq/L Total Bilirubin (0.1-1.5) mg/dL Direct Bilirubin (0.0-0.5) mg/dL AST (5-40) IU/L ALT (8-54) IU/L Alkaline Phosphatase (40-150) Lactate Dehydrogenase 258 H (125-220) IU/L Troponin I (0.0-0.29) NG/ML B-Natriuretic Peptide 344 H (<100) PG/ML Total Protein (6.0-8.0) g/dL Albumin (3.5-5.0) g/dL Globulin (2.0-3.5) g/dL Albumin/Globulin Ratio (1.3-2.8) Amylase (10-90) U/L Lipase (7-80) U/L 03/24/17 03/24/17 03/24/17 Range/Units 17:35 19:08 22:40 WBC 4.72 (4.0-11.0) K/uL RBC 3.45 L (4.30-5.90) M/uL Hgb 9.1 L (12.0-16.0) g/dL Hct 28.4 L (36.0-46.0) % MCV 82.3 (80.0-98.0) fL MCH 26.4 L (27.0-32.0) pg MCHC 32.0 (31.0-37.0) g/dL RDW Std Deviation 47.7 (28.0-62.0) fl RDW Coeff of Lucina 16 H (11.0-15.0) % Plt Count 143 L (150-400) K/uL MPV 10.50 (7.40-12.00) fL Add Manual Diff Neutrophils % (Manual) (48.0-80.0) % Band Neutrophils % % Lymphocytes % (Manual) (16.0-40.0) % Basophils % (Manual) (0.0-1.5) % Metamyelocytes % % Nucleated RBC % 0.0 /100WBC Absolute Seg Neuts Band Neutrophils # Lymphocytes # (Manual) Basophils # (Manual) Absolute Metamyelocyte Nucleated RBCs # 0 K/uL D-Dimer, Quantitative (0.0-0.52) mg/LFEU ABG pH (7.35-7.45) ABG pCO2 (35-45) mmHG ABG pO2 (75-100) mmHG ABG HCO3 (22-26) mEq/L ABG Total CO2 ABG Base Excess (-2.0-2.0) Lactate 3.2 H (0.20-2.00) mmol/L Sodium 141 (136-146) mmol/L Potassium 3.4 L (3.5-5.1) mmol/L Chloride 112 H (98-110) mmol/L Carbon Dioxide 13 L (21-31) mmol/L BUN 13 (6.0-23.0) mg/dL Creatinine 0.8 (0.6-1.5) mg/dL Est Cr Clr Drug Dosing 94.90 mL/min Estimated GFR (MDRD) > 60.0 ml/min Glucose 63 (60-110) mg/dL Calcium 8.1 L (8.8-10.8) mg/dL Phosphorus 3.9 (2.4-4.7) mg/dL Magnesium 1.1 L (1.5-2.3) mEq/L Total Bilirubin 1.2 (0.1-1.5) mg/dL Direct Bilirubin 0.7 H (0.0-0.5) mg/dL AST 124 H (5-40) IU/L ALT 90 H (8-54) IU/L Alkaline Phosphatase 98 (40-150) Lactate Dehydrogenase (125-220) IU/L Troponin I (0.0-0.29) NG/ML B-Natriuretic Peptide (<100) PG/ML Total Protein 4.8 L (6.0-8.0) g/dL Albumin 2.2 L (3.5-5.0) g/dL Globulin 2.6 (2.0-3.5) g/dL Albumin/Globulin Ratio 0.9 L (1.3-2.8) Amylase (10-90) U/L Lipase (7-80) U/L 03/24/17 03/24/17 03/24/17 Range/Units 22:40 22:40 22:40 WBC 6.65 (4.0-11.0) K/uL RBC 3.52 L (4.30-5.90) M/uL Hgb 9.3 L (12.0-16.0) g/dL Hct 28.8 L (36.0-46.0) % MCV 81.8 (80.0-98.0) fL MCH 26.4 L (27.0-32.0) pg MCHC 32.3 (31.0-37.0) g/dL RDW Std Deviation 46.8 (28.0-62.0) fl RDW Coeff of Lucina 16 H (11.0-15.0) % Plt Count 136 L (150-400) K/uL MPV 9.60 (7.40-12.00) fL Add Manual Diff YES Neutrophils % (Manual) 41 L (48.0-80.0) % Band Neutrophils % 49 % Lymphocytes % (Manual) 8 L (16.0-40.0) % Basophils % (Manual) (0.0-1.5) % Metamyelocytes % 2 % Nucleated RBC % 0.0 /100WBC Absolute Seg Neuts 2.7 Band Neutrophils # 3.3 Lymphocytes # (Manual) 0.5 Basophils # (Manual) Absolute Metamyelocyte 0.1 Nucleated RBCs # 0 K/uL D-Dimer, Quantitative (0.0-0.52) mg/LFEU ABG pH (7.35-7.45) ABG pCO2 (35-45) mmHG ABG pO2 (75-100) mmHG ABG HCO3 (22-26) mEq/L ABG Total CO2 ABG Base Excess (-2.0-2.0) Lactate 2.5 H (0.20-2.00) mmol/L Sodium (136-146) mmol/L Potassium (3.5-5.1) mmol/L Chloride (98-110) mmol/L Carbon Dioxide (21-31) mmol/L BUN (6.0-23.0) mg/dL Creatinine (0.6-1.5) mg/dL Est Cr Clr Drug Dosing mL/min Estimated GFR (MDRD) ml/min Glucose (60-110) mg/dL Calcium (8.8-10.8) mg/dL Phosphorus (2.4-4.7) mg/dL Magnesium (1.5-2.3) mEq/L Total Bilirubin (0.1-1.5) mg/dL Direct Bilirubin (0.0-0.5) mg/dL AST (5-40) IU/L ALT (8-54) IU/L Alkaline Phosphatase (40-150) Lactate Dehydrogenase (125-220) IU/L Troponin I (0.0-0.29) NG/ML B-Natriuretic Peptide 381 H (<100) PG/ML Total Protein (6.0-8.0) g/dL Albumin (3.5-5.0) g/dL Globulin (2.0-3.5) g/dL Albumin/Globulin Ratio (1.3-2.8) Amylase (10-90) U/L Lipase (7-80) U/L 03/24/17 03/24/17 03/25/17 Range/Units 22:40 23:15 04:35 WBC 7.26 (4.0-11.0) K/uL RBC 3.27 L (4.30-5.90) M/uL Hgb 8.5 L (12.0-16.0) g/dL Hct 26.6 L (36.0-46.0) % MCV 81.3 (80.0-98.0) fL MCH 26.0 L (27.0-32.0) pg MCHC 32.0 (31.0-37.0) g/dL RDW Std Deviation 46.9 (28.0-62.0) fl RDW Coeff of Lucina 16 H (11.0-15.0) % Plt Count 110 L (150-400) K/uL MPV 9.90 (7.40-12.00) fL Add Manual Diff YES Neutrophils % (Manual) 60 (48.0-80.0) % Band Neutrophils % 27 % Lymphocytes % (Manual) 8 L (16.0-40.0) % Basophils % (Manual) 1 (0.0-1.5) % Metamyelocytes % 4 % Nucleated RBC % 0.0 /100WBC Absolute Seg Neuts 4.4 Band Neutrophils # 2.0 Lymphocytes # (Manual) 0.6 Basophils # (Manual) 0 Absolute Metamyelocyte 0.3 Nucleated RBCs # 0 K/uL D-Dimer, Quantitative (0.0-0.52) mg/LFEU ABG pH 7.461 H (7.35-7.45) ABG pCO2 23 L (35-45) mmHG ABG pO2 85 (75-100) mmHG ABG HCO3 16 L (22-26) mEq/L ABG Total CO2 15.1 ABG Base Excess -6.7 L (-2.0-2.0) Lactate (0.20-2.00) mmol/L Sodium (136-146) mmol/L Potassium (3.5-5.1) mmol/L Chloride (98-110) mmol/L Carbon Dioxide (21-31) mmol/L BUN (6.0-23.0) mg/dL Creatinine (0.6-1.5) mg/dL Est Cr Clr Drug Dosing mL/min Estimated GFR (MDRD) ml/min Glucose (60-110) mg/dL Calcium (8.8-10.8) mg/dL Phosphorus (2.4-4.7) mg/dL Magnesium (1.5-2.3) mEq/L Total Bilirubin (0.1-1.5) mg/dL Direct Bilirubin (0.0-0.5) mg/dL AST (5-40) IU/L ALT (8-54) IU/L Alkaline Phosphatase (40-150) Lactate Dehydrogenase (125-220) IU/L Troponin I 0.19 (0.0-0.29) NG/ML B-Natriuretic Peptide (<100) PG/ML Total Protein (6.0-8.0) g/dL Albumin (3.5-5.0) g/dL Globulin (2.0-3.5) g/dL Albumin/Globulin Ratio (1.3-2.8) Amylase (10-90) U/L Lipase (7-80) U/L 03/25/17 03/25/17 03/25/17 Range/Units 04:35 04:35 04:40 WBC (4.0-11.0) K/uL RBC (4.30-5.90) M/uL Hgb (12.0-16.0) g/dL Hct (36.0-46.0) % MCV (80.0-98.0) fL MCH (27.0-32.0) pg MCHC (31.0-37.0) g/dL RDW Std Deviation (28.0-62.0) fl RDW Coeff of Lucina (11.0-15.0) % Plt Count (150-400) K/uL MPV (7.40-12.00) fL Add Manual Diff Neutrophils % (Manual) (48.0-80.0) % Band Neutrophils % % Lymphocytes % (Manual) (16.0-40.0) % Basophils % (Manual) (0.0-1.5) % Metamyelocytes % % Nucleated RBC % /100WBC Absolute Seg Neuts Band Neutrophils # Lymphocytes # (Manual) Basophils # (Manual) Absolute Metamyelocyte Nucleated RBCs # K/uL D-Dimer, Quantitative (0.0-0.52) mg/LFEU ABG pH (7.35-7.45) ABG pCO2 (35-45) mmHG ABG pO2 (75-100) mmHG ABG HCO3 (22-26) mEq/L ABG Total CO2 ABG Base Excess (-2.0-2.0) Lactate 1.6 (0.20-2.00) mmol/L Sodium 140 (136-146) mmol/L Potassium 3.4 L (3.5-5.1) mmol/L Chloride 113 H (98-110) mmol/L Carbon Dioxide 13 L (21-31) mmol/L BUN 15 (6.0-23.0) mg/dL Creatinine 0.8 (0.6-1.5) mg/dL Est Cr Clr Drug Dosing TNP mL/min Estimated GFR (MDRD) > 60.0 ml/min Glucose 67 (60-110) mg/dL Calcium 7.8 L (8.8-10.8) mg/dL Phosphorus (2.4-4.7) mg/dL Magnesium (1.5-2.3) mEq/L Total Bilirubin 1.0 (0.1-1.5) mg/dL Direct Bilirubin (0.0-0.5) mg/dL AST 102 H (5-40) IU/L ALT 74 H (8-54) IU/L Alkaline Phosphatase 99 (40-150) Lactate Dehydrogenase (125-220) IU/L Troponin I (0.0-0.29) NG/ML B-Natriuretic Peptide (<100) PG/ML Total Protein 4.4 L (6.0-8.0) g/dL Albumin 2.0 L (3.5-5.0) g/dL Globulin 2.4 (2.0-3.5) g/dL Albumin/Globulin Ratio 0.8 L (1.3-2.8) Amylase 12 (10-90) U/L Lipase < 8 (7-80) U/L Med Orders - Current: Current Medications Acetaminophen (Tylenol) 650 mg PO Q6H PRN PRN Reason: Temperature Last Admin: 03/25/17 15:38 Dose: 650 mg Enoxaparin Sodium (Lovenox) 40 mg SUBCUT Q24H [facility] Hydromorphone HCl (Dilaudid) 0.25 mg IVPUSH Q2H PRN PRN Reason: Pain (severe 7-10) Last Admin: 03/25/17 16:19 Dose: 0.25 mg Clindamycin Phosphate 900 mg/ (Premix) 50 mls @ 100 mls/hr IV Q8H [facility] Last Admin: 03/25/17 11:05 Dose: 100 mls/hr Gentamicin Sulfate 132 mg/ (Sodium Chloride) 103.3 mls @ 206.6 mls/hr IV Q8H [facility] Last Admin: 03/25/17 10:17 Dose: 206.6 mls/hr Potassium Chloride/Dextrose/Sod Cl (D5 1/2 Ns W/ 20 Meq/L Kcl) 1,000 mls @ 75 mls/hr IV ASDIRECTED [facility] Last Admin: 03/25/17 11:44 Dose: 75 mls/hr Linezolid 600 mg/ Premix 300 mls @ 300 mls/hr IV Q12H [facility] Last Admin: 03/25/17 16:22 Dose: 300 mls/hr Albumin Human (Flexbumin 25%) 12.5 gm in 50 mls @ 100 mls/hr IV ONETIME ONE Stop: 03/25/17 18:06 Albumin Human (Flexbumin 25%) 12.5 gm in 50 mls @ 100 mls/hr IV ONETIME ONE Stop: 03/25/17 18:29 Ondansetron HCl (Zofran Odt) 4 mg PO Q4H PRN PRN Reason: nausea, able to take PO Sodium Chloride (Saline Flush) 10 ml FLUSH ASDIRECTED PRN PRN Reason: Keep Vein Open Sodium Chloride (Saline Flush) 2.5 ml FLUSH ASDIRECTED PRN PRN Reason: Keep Vein Open Discontinued Medications Diphenhydramine HCl (Benadryl) 50 mg IVPUSH ONETIME ONE Stop: 03/25/17 15:20 Last Admin: 03/25/17 15:36 Dose: 50 mg Enoxaparin Sodium (Lovenox) 40 mg SUBCUT Q12HR [facility] Last Admin: 03/24/17 20:36 Dose: 40 mg Furosemide (Lasix) 40 mg IVPUSH NOW ONE Stop: 03/24/17 18:01 Last Admin: 03/24/17 18:15 Dose: 40 mg Furosemide (Lasix) 40 mg IVPUSH NOW ONE Stop: 03/25/17 08:18 Last Admin: 03/25/17 08:30 Dose: 40 mg Gentamicin Sulfate (Gentamicin) 132 mg IV Q8H [facility] Last Admin: 03/25/17 02:55 Dose: 132 mg Hydromorphone HCl (Dilaudid) 0.5 mg IVPUSH ONETIME ONE Stop: 03/24/17 14:44 Last Admin: 03/24/17 15:00 Dose: 0.5 mg Hydromorphone HCl (Dilaudid) 0.25 mg IVPUSH Q2H PRN PRN Reason: Pain (severe 7-10) Sodium Chloride (Normal Saline) 1,000 mls @ 999 mls/hr IV .Bolus ONE Stop: 03/24/17 14:33 Last Admin: 03/24/17 14:00 Dose: 999 mls/hr Cefepime HCl 2 gm/ Premix 50 mls @ 100 mls/hr IV ONETIME ONE Stop: 03/24/17 14:15 Last Admin: 03/24/17 14:20 Dose: 100 mls/hr Vancomycin HCl 1,000 mg/ (Dextrose/Water) 250 mls @ 167 mls/hr IV ONETIME ONE Stop: 03/24/17 15:15 Last Admin: 03/24/17 15:33 Dose: Not Given Sodium Chloride (Normal Saline) 1,000 mls @ 999 mls/hr IV .Bolus ONE Stop: 03/24/17 14:47 Last Admin: 03/24/17 14:00 Dose: 999 mls/hr Vancomycin HCl 1,000 mg/ (Sodium Chloride) 100 mls @ 100 mls/hr IV ONETIME ONE Stop: 03/24/17 15:14 Vancomycin HCl 1,000 mg/ (Sodium Chloride) 250 mls @ 250 mls/hr IV ONETIME ONE Stop: 03/24/17 15:14 Last Admin: 03/24/17 15:32 Dose: Not Given Vancomycin HCl 1 gm/ Sodium (Chloride) 250 mls @ 166 mls/hr IV ONETIME ONE Stop: 03/24/17 15:54 Last Infusion: 03/24/17 14:26 Dose: 250 mls/hr Lactated Ringer's (Ringers, Lactated) 1,000 mls @ 999 mls/hr IV .BOLUS ONE Stop: 03/24/17 18:44 Last Admin: 03/24/17 18:01 Dose: Not Given Clindamycin Phosphate 900 mg/ (Sodium Chloride) 56 mls @ 100 mls/hr IV Q8H [facility] Last Admin: 03/24/17 19:07 Dose: Not Given Meropenem 1 gm/ Sodium (Chloride) 100 mls @ 200 mls/hr IV Q8H [facility] Last Admin: 03/24/17 21:07 Dose: 200 mls/hr Vancomycin HCl 1.25 gm/ Sodium (Chloride) 500 mls @ 333 mls/hr IV Q12H [facility] Last Admin: 03/25/17 02:08 Dose: 333 mls/hr Lactated Ringer's (Ringers, Lactated) 1,000 mls @ 1,000 mls/hr IV ONETIME ONE Stop: 03/25/17 01:29 Last Admin: 03/25/17 01:20 Dose: 1,000 mls/hr Magnesium Sulfate 2 gm/ Premix 50 mls @ 50 mls/hr IV ONETIME ONE Stop: 03/25/17 01:59 Last Admin: 03/25/17 01:43 Dose: 50 mls/hr Meropenem 1 gm/ Sodium (Chloride) 100 mls @ 200 mls/hr IV Q8H [facility] Last Admin: 03/25/17 06:42 Dose: Not Given Meropenem 1 gm/ Sodium (Chloride) 100 mls @ 200 mls/hr IV Q8H [facility] Last Admin: 03/25/17 10:44 Dose: 200 mls/hr Vancomycin HCl 1.5 gm/ Sodium (Chloride) 500 mls @ 333.333 mls/hr IV Q12H [facility] Last Admin: 03/25/17 13:54 Dose: 333.333 mls/hr Albumin Human (Flexbumin 25%) 12.5 gm in 50 mls @ 50 mls/hr IV Q1H [facility] Stop: 03/25/17 12:29 Last Admin: 03/25/17 11:37 Dose: 50 mls/hr Albumin Human (Flexbumin 25%) 12.5 gm in 50 mls @ 100 mls/hr IV ONETIME ONE Stop: 03/25/17 10:27 Last Admin: 03/25/17 10:43 Dose: Not Given Albumin Human (Flexbumin 25%) 12.5 gm in 50 mls @ 100 mls/hr IV ONETIME ONE Stop: 03/25/17 18:05 Iopamidol (Isovue-370 (76%)) 48 ml IV ONETIME STA Stop: 03/25/17 00:24 Last Admin: 03/25/17 01:02 Dose: 48 ml Metoprolol Tartrate (Lopressor) 2.5 mg IVPUSH ONETIME ONE Stop: 03/25/17 17:35 Last Admin: 03/25/17 17:38 Dose: 2.5 mg Metoprolol Tartrate (Lopressor) 2.5 mg IVPUSH ONETIME ONE Stop: 03/25/17 17:45 Potassium Chloride (Klor-Con M20) 40 meq PO ONETIME ONE Stop: 03/25/17 10:31 Last Admin: 03/25/17 10:37 Dose: 40 meq Ranitidine HCl (Zantac) 150 mg PO NOW STA Stop: 03/25/17 15:21 Last Admin: 03/25/17 15:36 Dose: 150 mg Vancomycin HCl (Pharmacy To Dose - Vancomycin) 1 dose .XX ASDIRECTED [facility] - Exam Quality Assessment: supplemental oxygen General: mild distress HEENT: Pupils equal, Pupils reactive Neck: supple Lungs: Rales Cardiovascular: Tachycardia Extremities: edema EKG INTERPRETATION Rhythm: other (ST) - Problem List Review Problem List Initiated/Reviewed/Updated: Yes - My Orders Last 24 Hours: My Active Orders 03/25/17 08:42 Communication Order [] ROUTINE 03/25/17 17:45 Echo Comp wo Cont [US] Routine 03/25/17 Breakfast Fluid Restriction [DIET] - Plan Plan:: 26F POD 5 with fever gram positive bacteremia, sepsis syndrome, with respiratory failure, with low albumin, elevated LFT, tachycardia 1. Tachycardia: most likely ST, multifactorial: including third space loss from SIRS and low albumin, , with likely source of infection in her pelvic organ, she is given ABx IV, albumin was given. Echo prelim: hyperdynamic LV LVEF > 65% - treat infection - will use diuretic sparingly if excessive positive fluid balance 2. sepsis syndrome: SIRS: probably most likely source pelvic organ. 3. elevated LFT, thrombocytopenia: possibly HELLP syndrome
[2017-03-25] MEDS: Albumin 25% 12.5 GM/50 ML BAG IV ONE ×2 (18:09→18:11)
--- NOTE | 2017-03-25 18:17 | PCM.PN ---
- General Info Date of Service: 03/25/17 Functional Status: Reports: tolerating diet (clear liquids) - Review of Systems General: Reports: Fever, Weakness, Fatigue, Malaise, Chills Pulmonary: Reports: shortness of breath (increased w/ episode of tachycardia), pleuritic chest pain Cardiovascular: Reports: Palpitations Gastrointestinal: Reports: Abdominal pain (generalized but appears more tender over uterus) Genitourinary: Reports: no symptoms (bunch in) Musculoskeletal: Reports: leg pain Skin: Reports: no symptoms (appears pale) Neurological: Reports: No Symptoms, Trouble Speaking (only 2nd to SOB) Psychiatric: Reports: no symptoms - Patient Data Vitals - most recent: Last Vital Signs Temp 37.2 C 03/25/17 12:00 Pulse 166 H 03/25/17 17:38 Resp 50 H 03/25/17 16:00 BP 136/69 03/25/17 17:38 Pulse Ox 90 L 03/25/17 16:00 Weight - most recent: 87.9 kg I&O - last 24 hours: Intake & Output 03/25/17 03/25/17 03/25/17 06:59 14:59 22:59 Intake Total 2450 350 1366 Output Total 4600 2950 Balance -2150 350 -1584 Lab Results last 24 hrs: Laboratory Results - last 24 hr 03/24/17 03/24/17 03/24/17 Range/Units 17:35 17:35 19:08 WBC 4.72 (4.0-11.0) K/uL RBC 3.45 L (4.30-5.90) M/uL Hgb 9.1 L (12.0-16.0) g/dL Hct 28.4 L (36.0-46.0) % MCV 82.3 (80.0-98.0) fL MCH 26.4 L (27.0-32.0) pg MCHC 32.0 (31.0-37.0) g/dL RDW Std Deviation 47.7 (28.0-62.0) fl RDW Coeff of Lucina 16 H (11.0-15.0) % Plt Count 143 L (150-400) K/uL MPV 10.50 (7.40-12.00) fL Add Manual Diff Neutrophils % (Manual) (48.0-80.0) % Band Neutrophils % % Lymphocytes % (Manual) (16.0-40.0) % Basophils % (Manual) (0.0-1.5) % Metamyelocytes % % Nucleated RBC % 0.0 /100WBC Absolute Seg Neuts Band Neutrophils # Lymphocytes # (Manual) Basophils # (Manual) Absolute Metamyelocyte Nucleated RBCs # 0 K/uL D-Dimer, Quantitative 12.21 H (0.0-0.52) mg/LFEU ABG pH (7.35-7.45) ABG pCO2 (35-45) mmHG ABG pO2 (75-100) mmHG ABG HCO3 (22-26) mEq/L ABG Total CO2 ABG Base Excess (-2.0-2.0) Lactate 3.2 H (0.20-2.00) mmol/L Sodium (136-146) mmol/L Potassium (3.5-5.1) mmol/L Chloride (98-110) mmol/L Carbon Dioxide (21-31) mmol/L BUN (6.0-23.0) mg/dL Creatinine (0.6-1.5) mg/dL Est Cr Clr Drug Dosing mL/min Estimated GFR (MDRD) ml/min Glucose (60-110) mg/dL Calcium (8.8-10.8) mg/dL Phosphorus (2.4-4.7) mg/dL Magnesium (1.5-2.3) mEq/L Total Bilirubin (0.1-1.5) mg/dL Direct Bilirubin (0.0-0.5) mg/dL AST (5-40) IU/L ALT (8-54) IU/L Alkaline Phosphatase (40-150) Troponin I (0.0-0.29) NG/ML B-Natriuretic Peptide (<100) PG/ML Total Protein (6.0-8.0) g/dL Albumin (3.5-5.0) g/dL Globulin (2.0-3.5) g/dL Albumin/Globulin Ratio (1.3-2.8) Amylase (10-90) U/L Lipase (7-80) U/L 03/24/17 03/24/17 03/24/17 Range/Units 22:40 22:40 22:40 WBC 6.65 (4.0-11.0) K/uL RBC 3.52 L (4.30-5.90) M/uL Hgb 9.3 L (12.0-16.0) g/dL Hct 28.8 L (36.0-46.0) % MCV 81.8 (80.0-98.0) fL MCH 26.4 L (27.0-32.0) pg MCHC 32.3 (31.0-37.0) g/dL RDW Std Deviation 46.8 (28.0-62.0) fl RDW Coeff of Lucina 16 H (11.0-15.0) % Plt Count 136 L (150-400) K/uL MPV 9.60 (7.40-12.00) fL Add Manual Diff YES Neutrophils % (Manual) 41 L (48.0-80.0) % Band Neutrophils % 49 % Lymphocytes % (Manual) 8 L (16.0-40.0) % Basophils % (Manual) (0.0-1.5) % Metamyelocytes % 2 % Nucleated RBC % 0.0 /100WBC Absolute Seg Neuts 2.7 Band Neutrophils # 3.3 Lymphocytes # (Manual) 0.5 Basophils # (Manual) Absolute Metamyelocyte 0.1 Nucleated RBCs # 0 K/uL D-Dimer, Quantitative (0.0-0.52) mg/LFEU ABG pH (7.35-7.45) ABG pCO2 (35-45) mmHG ABG pO2 (75-100) mmHG ABG HCO3 (22-26) mEq/L ABG Total CO2 ABG Base Excess (-2.0-2.0) Lactate 2.5 H (0.20-2.00) mmol/L Sodium 141 (136-146) mmol/L Potassium 3.4 L (3.5-5.1) mmol/L Chloride 112 H (98-110) mmol/L Carbon Dioxide 13 L (21-31) mmol/L BUN 13 (6.0-23.0) mg/dL Creatinine 0.8 (0.6-1.5) mg/dL Est Cr Clr Drug Dosing 94.90 mL/min Estimated GFR (MDRD) > 60.0 ml/min Glucose 63 (60-110) mg/dL Calcium 8.1 L (8.8-10.8) mg/dL Phosphorus 3.9 (2.4-4.7) mg/dL Magnesium 1.1 L (1.5-2.3) mEq/L Total Bilirubin 1.2 (0.1-1.5) mg/dL Direct Bilirubin 0.7 H (0.0-0.5) mg/dL AST 124 H (5-40) IU/L ALT 90 H (8-54) IU/L Alkaline Phosphatase 98 (40-150) Troponin I (0.0-0.29) NG/ML B-Natriuretic Peptide (<100) PG/ML Total Protein 4.8 L (6.0-8.0) g/dL Albumin 2.2 L (3.5-5.0) g/dL Globulin 2.6 (2.0-3.5) g/dL Albumin/Globulin Ratio 0.9 L (1.3-2.8) Amylase (10-90) U/L Lipase (7-80) U/L 03/24/17 03/24/17 03/24/17 Range/Units 22:40 22:40 23:15 WBC (4.0-11.0) K/uL RBC (4.30-5.90) M/uL Hgb (12.0-16.0) g/dL Hct (36.0-46.0) % MCV (80.0-98.0) fL MCH (27.0-32.0) pg MCHC (31.0-37.0) g/dL RDW Std Deviation (28.0-62.0) fl RDW Coeff of Lucina (11.0-15.0) % Plt Count (150-400) K/uL MPV (7.40-12.00) fL Add Manual Diff Neutrophils % (Manual) (48.0-80.0) % Band Neutrophils % % Lymphocytes % (Manual) (16.0-40.0) % Basophils % (Manual) (0.0-1.5) % Metamyelocytes % % Nucleated RBC % /100WBC Absolute Seg Neuts Band Neutrophils # Lymphocytes # (Manual) Basophils # (Manual) Absolute Metamyelocyte Nucleated RBCs # K/uL D-Dimer, Quantitative (0.0-0.52) mg/LFEU ABG pH 7.461 H (7.35-7.45) ABG pCO2 23 L (35-45) mmHG ABG pO2 85 (75-100) mmHG ABG HCO3 16 L (22-26) mEq/L ABG Total CO2 15.1 ABG Base Excess -6.7 L (-2.0-2.0) Lactate (0.20-2.00) mmol/L Sodium (136-146) mmol/L Potassium (3.5-5.1) mmol/L Chloride (98-110) mmol/L Carbon Dioxide (21-31) mmol/L BUN (6.0-23.0) mg/dL Creatinine (0.6-1.5) mg/dL Est Cr Clr Drug Dosing mL/min Estimated GFR (MDRD) ml/min Glucose (60-110) mg/dL Calcium (8.8-10.8) mg/dL Phosphorus (2.4-4.7) mg/dL Magnesium (1.5-2.3) mEq/L Total Bilirubin (0.1-1.5) mg/dL Direct Bilirubin (0.0-0.5) mg/dL AST (5-40) IU/L ALT (8-54) IU/L Alkaline Phosphatase (40-150) Troponin I 0.19 (0.0-0.29) NG/ML B-Natriuretic Peptide 381 H (<100) PG/ML Total Protein (6.0-8.0) g/dL Albumin (3.5-5.0) g/dL Globulin (2.0-3.5) g/dL Albumin/Globulin Ratio (1.3-2.8) Amylase (10-90) U/L Lipase (7-80) U/L 03/25/17 03/25/17 03/25/17 Range/Units 04:35 04:35 04:35 WBC 7.26 (4.0-11.0) K/uL RBC 3.27 L (4.30-5.90) M/uL Hgb 8.5 L (12.0-16.0) g/dL Hct 26.6 L (36.0-46.0) % MCV 81.3 (80.0-98.0) fL MCH 26.0 L (27.0-32.0) pg MCHC 32.0 (31.0-37.0) g/dL RDW Std Deviation 46.9 (28.0-62.0) fl RDW Coeff of Lucina 16 H (11.0-15.0) % Plt Count 110 L (150-400) K/uL MPV 9.90 (7.40-12.00) fL Add Manual Diff YES Neutrophils % (Manual) 60 (48.0-80.0) % Band Neutrophils % 27 % Lymphocytes % (Manual) 8 L (16.0-40.0) % Basophils % (Manual) 1 (0.0-1.5) % Metamyelocytes % 4 % Nucleated RBC % 0.0 /100WBC Absolute Seg Neuts 4.4 Band Neutrophils # 2.0 Lymphocytes # (Manual) 0.6 Basophils # (Manual) 0 Absolute Metamyelocyte 0.3 Nucleated RBCs # 0 K/uL D-Dimer, Quantitative (0.0-0.52) mg/LFEU ABG pH (7.35-7.45) ABG pCO2 (35-45) mmHG ABG pO2 (75-100) mmHG ABG HCO3 (22-26) mEq/L ABG Total CO2 ABG Base Excess (-2.0-2.0) Lactate (0.20-2.00) mmol/L Sodium 140 (136-146) mmol/L Potassium 3.4 L (3.5-5.1) mmol/L Chloride 113 H (98-110) mmol/L Carbon Dioxide 13 L (21-31) mmol/L BUN 15 (6.0-23.0) mg/dL Creatinine 0.8 (0.6-1.5) mg/dL Est Cr Clr Drug Dosing TNP mL/min Estimated GFR (MDRD) > 60.0 ml/min Glucose 67 (60-110) mg/dL Calcium 7.8 L (8.8-10.8) mg/dL Phosphorus (2.4-4.7) mg/dL Magnesium (1.5-2.3) mEq/L Total Bilirubin 1.0 (0.1-1.5) mg/dL Direct Bilirubin (0.0-0.5) mg/dL AST 102 H (5-40) IU/L ALT 74 H (8-54) IU/L Alkaline Phosphatase 99 (40-150) Troponin I (0.0-0.29) NG/ML B-Natriuretic Peptide (<100) PG/ML Total Protein 4.4 L (6.0-8.0) g/dL Albumin 2.0 L (3.5-5.0) g/dL Globulin 2.4 (2.0-3.5) g/dL Albumin/Globulin Ratio 0.8 L (1.3-2.8) Amylase 12 (10-90) U/L Lipase < 8 (7-80) U/L 03/25/17 Range/Units 04:40 WBC (4.0-11.0) K/uL RBC (4.30-5.90) M/uL Hgb (12.0-16.0) g/dL Hct (36.0-46.0) % MCV (80.0-98.0) fL MCH (27.0-32.0) pg MCHC (31.0-37.0) g/dL RDW Std Deviation (28.0-62.0) fl RDW Coeff of Lucina (11.0-15.0) % Plt Count (150-400) K/uL MPV (7.40-12.00) fL Add Manual Diff Neutrophils % (Manual) (48.0-80.0) % Band Neutrophils % % Lymphocytes % (Manual) (16.0-40.0) % Basophils % (Manual) (0.0-1.5) % Metamyelocytes % % Nucleated RBC % /100WBC Absolute Seg Neuts Band Neutrophils # Lymphocytes # (Manual) Basophils # (Manual) Absolute Metamyelocyte Nucleated RBCs # K/uL D-Dimer, Quantitative (0.0-0.52) mg/LFEU ABG pH (7.35-7.45) ABG pCO2 (35-45) mmHG ABG pO2 (75-100) mmHG ABG HCO3 (22-26) mEq/L ABG Total CO2 ABG Base Excess (-2.0-2.0) Lactate 1.6 (0.20-2.00) mmol/L Sodium (136-146) mmol/L Potassium (3.5-5.1) mmol/L Chloride (98-110) mmol/L Carbon Dioxide (21-31) mmol/L BUN (6.0-23.0) mg/dL Creatinine (0.6-1.5) mg/dL Est Cr Clr Drug Dosing mL/min Estimated GFR (MDRD) ml/min Glucose (60-110) mg/dL Calcium (8.8-10.8) mg/dL Phosphorus (2.4-4.7) mg/dL Magnesium (1.5-2.3) mEq/L Total Bilirubin (0.1-1.5) mg/dL Direct Bilirubin (0.0-0.5) mg/dL AST (5-40) IU/L ALT (8-54) IU/L Alkaline Phosphatase (40-150) Troponin I (0.0-0.29) NG/ML B-Natriuretic Peptide (<100) PG/ML Total Protein (6.0-8.0) g/dL Albumin (3.5-5.0) g/dL Globulin (2.0-3.5) g/dL Albumin/Globulin Ratio (1.3-2.8) Amylase (10-90) U/L Lipase (7-80) U/L Med Orders - Current: Current Medications Acetaminophen (Tylenol) 650 mg PO Q6H PRN PRN Reason: Temperature Last Admin: 03/25/17 15:38 Dose: 650 mg Enoxaparin Sodium (Lovenox) 40 mg SUBCUT Q24H KAILASH Hydromorphone HCl (Dilaudid) 0.25 mg IVPUSH Q2H PRN PRN Reason: Pain (severe 7-10) Last Admin: 03/25/17 16:19 Dose: 0.25 mg Clindamycin Phosphate 900 mg/ (Premix) 50 mls @ 100 mls/hr IV Q8H [facility] Last Admin: 03/25/17 11:05 Dose: 100 mls/hr Gentamicin Sulfate 132 mg/ (Sodium Chloride) 103.3 mls @ 206.6 mls/hr IV Q8H [facility] Last Admin: 03/25/17 10:17 Dose: 206.6 mls/hr Potassium Chloride/Dextrose/Sod Cl (D5 1/2 Ns W/ 20 Meq/L Kcl) 1,000 mls @ 75 mls/hr IV ASDIRECTED [facility] Last Admin: 03/25/17 11:44 Dose: 75 mls/hr Linezolid 600 mg/ Premix 300 mls @ 300 mls/hr IV Q12H [facility] Last Admin: 03/25/17 16:22 Dose: 300 mls/hr Albumin Human (Flexbumin 25%) 12.5 gm in 50 mls @ 100 mls/hr IV ONETIME ONE Stop: 03/25/17 18:29 Ondansetron HCl (Zofran Odt) 4 mg PO Q4H PRN PRN Reason: nausea, able to take PO Sodium Chloride (Saline Flush) 10 ml FLUSH ASDIRECTED PRN PRN Reason: Keep Vein Open Sodium Chloride (Saline Flush) 2.5 ml FLUSH ASDIRECTED PRN PRN Reason: Keep Vein Open Discontinued Medications Diphenhydramine HCl (Benadryl) 50 mg IVPUSH ONETIME ONE Stop: 03/25/17 15:20 Last Admin: 03/25/17 15:36 Dose: 50 mg Enoxaparin Sodium (Lovenox) 40 mg SUBCUT Q12HR [facility] Last Admin: 03/24/17 20:36 Dose: 40 mg Furosemide (Lasix) 40 mg IVPUSH NOW ONE Stop: 03/24/17 18:01 Last Admin: 03/24/17 18:15 Dose: 40 mg Furosemide (Lasix) 40 mg IVPUSH NOW ONE Stop: 03/25/17 08:18 Last Admin: 03/25/17 08:30 Dose: 40 mg Gentamicin Sulfate (Gentamicin) 132 mg IV Q8H [facility] Last Admin: 03/25/17 02:55 Dose: 132 mg Hydromorphone HCl (Dilaudid) 0.5 mg IVPUSH ONETIME ONE Stop: 03/24/17 14:44 Last Admin: 03/24/17 15:00 Dose: 0.5 mg Hydromorphone HCl (Dilaudid) 0.25 mg IVPUSH Q2H PRN PRN Reason: Pain (severe 7-10) Sodium Chloride (Normal Saline) 1,000 mls @ 999 mls/hr IV .Bolus ONE Stop: 03/24/17 14:33 Last Admin: 03/24/17 14:00 Dose: 999 mls/hr Cefepime HCl 2 gm/ Premix 50 mls @ 100 mls/hr IV ONETIME ONE Stop: 03/24/17 14:15 Last Admin: 03/24/17 14:20 Dose: 100 mls/hr Vancomycin HCl 1,000 mg/ (Dextrose/Water) 250 mls @ 167 mls/hr IV ONETIME ONE Stop: 03/24/17 15:15 Last Admin: 03/24/17 15:33 Dose: Not Given Sodium Chloride (Normal Saline) 1,000 mls @ 999 mls/hr IV .Bolus ONE Stop: 03/24/17 14:47 Last Admin: 03/24/17 14:00 Dose: 999 mls/hr Vancomycin HCl 1,000 mg/ (Sodium Chloride) 100 mls @ 100 mls/hr IV ONETIME ONE Stop: 03/24/17 15:14 Vancomycin HCl 1,000 mg/ (Sodium Chloride) 250 mls @ 250 mls/hr IV ONETIME ONE Stop: 03/24/17 15:14 Last Admin: 03/24/17 15:32 Dose: Not Given Vancomycin HCl 1 gm/ Sodium (Chloride) 250 mls @ 166 mls/hr IV ONETIME ONE Stop: 03/24/17 15:54 Last Infusion: 03/24/17 14:26 Dose: 250 mls/hr Lactated Ringer's (Ringers, Lactated) 1,000 mls @ 999 mls/hr IV .BOLUS ONE Stop: 03/24/17 18:44 Last Admin: 03/24/17 18:01 Dose: Not Given Clindamycin Phosphate 900 mg/ (Sodium Chloride) 56 mls @ 100 mls/hr IV Q8H [facility] Last Admin: 03/24/17 19:07 Dose: Not Given Meropenem 1 gm/ Sodium (Chloride) 100 mls @ 200 mls/hr IV Q8H [facility] Last Admin: 03/24/17 21:07 Dose: 200 mls/hr Vancomycin HCl 1.25 gm/ Sodium (Chloride) 500 mls @ 333 mls/hr IV Q12H [facility] Last Admin: 03/25/17 02:08 Dose: 333 mls/hr Lactated Ringer's (Ringers, Lactated) 1,000 mls @ 1,000 mls/hr IV ONETIME ONE Stop: 03/25/17 01:29 Last Admin: 03/25/17 01:20 Dose: 1,000 mls/hr Magnesium Sulfate 2 gm/ Premix 50 mls @ 50 mls/hr IV ONETIME ONE Stop: 03/25/17 01:59 Last Admin: 03/25/17 01:43 Dose: 50 mls/hr Meropenem 1 gm/ Sodium (Chloride) 100 mls @ 200 mls/hr IV Q8H [facility] Last Admin: 03/25/17 06:42 Dose: Not Given Meropenem 1 gm/ Sodium (Chloride) 100 mls @ 200 mls/hr IV Q8H [facility] Last Admin: 03/25/17 10:44 Dose: 200 mls/hr Vancomycin HCl 1.5 gm/ Sodium (Chloride) 500 mls @ 333.333 mls/hr IV Q12H [facility] Last Admin: 03/25/17 13:54 Dose: 333.333 mls/hr Albumin Human (Flexbumin 25%) 12.5 gm in 50 mls @ 50 mls/hr IV Q1H [facility] Stop: 03/25/17 12:29 Last Admin: 03/25/17 11:37 Dose: 50 mls/hr Albumin Human (Flexbumin 25%) 12.5 gm in 50 mls @ 100 mls/hr IV ONETIME ONE Stop: 03/25/17 10:27 Last Admin: 03/25/17 10:43 Dose: Not Given Albumin Human (Flexbumin 25%) 12.5 gm in 50 mls @ 100 mls/hr IV ONETIME ONE Stop: 03/25/17 18:05 Albumin Human (Flexbumin 25%) 12.5 gm in 50 mls @ 100 mls/hr IV ONETIME ONE Stop: 03/25/17 18:06 Last Admin: 03/25/17 17:52 Dose: 100 mls/hr Iopamidol (Isovue-370 (76%)) 48 ml IV ONETIME STA Stop: 03/25/17 00:24 Last Admin: 03/25/17 01:02 Dose: 48 ml Metoprolol Tartrate (Lopressor) 2.5 mg IVPUSH ONETIME ONE Stop: 03/25/17 17:35 Last Admin: 03/25/17 17:38 Dose: 2.5 mg Metoprolol Tartrate (Lopressor) 2.5 mg IVPUSH ONETIME ONE Stop: 03/25/17 17:45 Potassium Chloride (Klor-Con M20) 40 meq PO ONETIME ONE Stop: 03/25/17 10:31 Last Admin: 03/25/17 10:37 Dose: 40 meq Ranitidine HCl (Zantac) 150 mg PO NOW STA Stop: 03/25/17 15:21 Last Admin: 03/25/17 15:36 Dose: 150 mg Vancomycin HCl (Pharmacy To Dose - Vancomycin) 1 dose .XX ASDIRECTED KAILASH - Exam General: alert, oriented Neck: supple Lungs: Clear to auscultation (anterior apex b/l), Decreased breath sounds, Crackles (small at bases) Cardiovascular: Tachycardia Abdomen: soft, tenderness, distension (mild), other (tender over uterus) Extremities: no calf tenderness, edema Skin: warm, dry, intact Neurological: no new focal deficit Psy/Mental Status: alert, anxious, agitated - Problem List & Annotations (1) Systemic inflammatory response syndrome (SIRS) SNOMED Code(s): 982297914 Code(s): R65.10 - SIRS OF NON-INFECTIOUS ORIGIN W/O ACUTE ORGAN DYSFUNCTION Status: Acute Priority: High Current Visit: Yes (2) Tachycardia SNOMED Code(s): 8025533 Code(s): R00.0 - TACHYCARDIA, UNSPECIFIED Status: Acute Current Visit: Yes - Problem List Review Problem List Initiated/Reviewed/Updated: Yes - My Orders Last 24 Hours: My Active Orders 03/24/17 19:15 Clindamycin Phosphate in D5W [Cleocin in D5W] 900 mg Premix Bag 1 bag IV Q8H 03/24/17 19:30 Communication Order [RC] ROUTINE 03/25/17 07:30 CULTURE URINE [RM] Routine 03/25/17 10:15 Gentamicin 132 mg Sodium Chloride 0.9% [Normal Saline] 100 ml IV Q8H 03/26/17 05:30 CMP [COMPREHENSIVE METABOLIC PN,CMP] [CHEM] Routine - Assessment Assessment:: HD#1, PPD#5 S/p SAVD, IOL for GHTN Normotensive and no proteinuria High index of suspicion for possible other source of infection, appendix not imaged on CT Possible uterus but generalized abdominal pain overall, more tender over uterus Episode of chills with significant O2 desaturation sustained in the 80s and HR in the 180s - Plan Plan:: 26F PPD 5 with fever gram positive bacteremia, sepsis syndrome, with respiratory failure, with low albumin, elevated LFT, tachycardia Second to not greatly improving and episode of severe tachycardia with destaturation concern for need to transfer discussed with hospitalist Discussed with family and the are in favor of transfer since pt not greatly improved and has worsened episodes Hospitalist to speak with hospitalist in [facility] [place] for transfer via fixed wing if possible May need to explore epidural site and uterine ultrasound not yet completed for retained products of conception
--- NOTE | 2017-03-25 19:36 | PCM.DCSUM1 ---
Discharge Summary - Hospital Course Brief History: 26 y o primigravida delivered healthy boy via induction and epidural anaesthesia on friday. home friday. Developed fever on weekend and seen in ER, treated as UTI but blood culture returned positve and pt was called back. at that time she was presenting with low wbc of sepsis' tachycardia and tachypnea She was started on IV fluids and ceftin and vancomycin Seen in consultation by STRIP ROLLER who added gentamycin and clindamycin. Tele icu recommended ertpenem intstead of ceftin. Vancomycin was stopped in favor of zyvox for questionable red man syndrome, She was alsom seen by cardiology for her extreme tachycardia 170/min and question of cardiomyopathy, but her echo showed a god,hyperdynamic heart. through all this she intermittently spike temperature [id number] degrees. She was really ill with rigors and O2 desaturation . Fortunately she rallied, heart rate was brought down with metoprolol and thought was given to rescn her looking for an abdominal abcess. However, on discussion between all involved physicians it was agreed that further deterioration would be hard to manage here. She might benefit from interventional radiology as well as input from infectious disease specialists not available her - Discharge Data Discharge Date: 03/25/17 Discharge Disposition: DC/Tfer to Acute Hospital 02 Condition: Fair - Patient Summary/Data Consults: Consultations 03/24/17 17:23 Consult to Physician [CONS] Urgent - Patient Instructions Diet: Regular Diet as Tolerated Activity: Bedrest - Discharge Plan Home Medications: Home Meds . [No Known Home Meds] 03/23/17 [History] Forms: ED Department Discharge Referrals: PCP,None [Primary Care Provider] - - Patient Data Vitals - Most Recent: Last Vital Signs Temp 37.2 C 03/25/17 12:00 Pulse 166 H 03/25/17 17:38 Resp 37 H 03/25/17 17:40 BP 136/69 03/25/17 17:38 Pulse Ox 94 L 03/25/17 17:40 Weight - Most Recent: 87.9 kg I&O - Last 24 hours: Intake & Output 03/25/17 03/25/17 03/25/17 06:59 14:59 22:59 Intake Total 2450 350 1416 Output Total 4600 2950 Balance -2150 350 -1534 Lab Results - Last 24 hrs: Laboratory Results - last 24 hr 03/24/17 03/24/17 03/24/17 Range/Units 22:40 22:40 22:40 WBC 6.65 (4.0-11.0) K/uL RBC 3.52 L (4.30-5.90) M/uL Hgb 9.3 L (12.0-16.0) g/dL Hct 28.8 L (36.0-46.0) % MCV 81.8 (80.0-98.0) fL MCH 26.4 L (27.0-32.0) pg MCHC 32.3 (31.0-37.0) g/dL RDW Std Deviation 46.8 (28.0-62.0) fl RDW Coeff of Lucina 16 H (11.0-15.0) % Plt Count 136 L (150-400) K/uL MPV 9.60 (7.40-12.00) fL Add Manual Diff YES Neutrophils % (Manual) 41 L (48.0-80.0) % Band Neutrophils % 49 % Lymphocytes % (Manual) 8 L (16.0-40.0) % Basophils % (Manual) (0.0-1.5) % Metamyelocytes % 2 % Nucleated RBC % 0.0 /100WBC Absolute Seg Neuts 2.7 Band Neutrophils # 3.3 Lymphocytes # (Manual) 0.5 Basophils # (Manual) Absolute Metamyelocyte 0.1 Nucleated RBCs # 0 K/uL ABG pH (7.35-7.45) ABG pCO2 (35-45) mmHG ABG pO2 (75-100) mmHG ABG HCO3 (22-26) mEq/L ABG Total CO2 ABG Base Excess (-2.0-2.0) Lactate 2.5 H (0.20-2.00) mmol/L Sodium 141 (136-146) mmol/L Potassium 3.4 L (3.5-5.1) mmol/L Chloride 112 H (98-110) mmol/L Carbon Dioxide 13 L (21-31) mmol/L BUN 13 (6.0-23.0) mg/dL Creatinine 0.8 (0.6-1.5) mg/dL Est Cr Clr Drug Dosing 94.90 mL/min Estimated GFR (MDRD) > 60.0 ml/min Glucose 63 (60-110) mg/dL Calcium 8.1 L (8.8-10.8) mg/dL Phosphorus 3.9 (2.4-4.7) mg/dL Magnesium 1.1 L (1.5-2.3) mEq/L Total Bilirubin 1.2 (0.1-1.5) mg/dL Direct Bilirubin 0.7 H (0.0-0.5) mg/dL AST 124 H (5-40) IU/L ALT 90 H (8-54) IU/L Alkaline Phosphatase 98 (40-150) Troponin I (0.0-0.29) NG/ML B-Natriuretic Peptide (<100) PG/ML Total Protein 4.8 L (6.0-8.0) g/dL Albumin 2.2 L (3.5-5.0) g/dL Globulin 2.6 (2.0-3.5) g/dL Albumin/Globulin Ratio 0.9 L (1.3-2.8) Amylase (10-90) U/L Lipase (7-80) U/L 03/24/17 03/24/17 03/24/17 Range/Units 22:40 22:40 23:15 WBC (4.0-11.0) K/uL RBC (4.30-5.90) M/uL Hgb (12.0-16.0) g/dL Hct (36.0-46.0) % MCV (80.0-98.0) fL MCH (27.0-32.0) pg MCHC (31.0-37.0) g/dL RDW Std Deviation (28.0-62.0) fl RDW Coeff of Lucina (11.0-15.0) % Plt Count (150-400) K/uL MPV (7.40-12.00) fL Add Manual Diff Neutrophils % (Manual) (48.0-80.0) % Band Neutrophils % % Lymphocytes % (Manual) (16.0-40.0) % Basophils % (Manual) (0.0-1.5) % Metamyelocytes % % Nucleated RBC % /100WBC Absolute Seg Neuts Band Neutrophils # Lymphocytes # (Manual) Basophils # (Manual) Absolute Metamyelocyte Nucleated RBCs # K/uL ABG pH 7.461 H (7.35-7.45) ABG pCO2 23 L (35-45) mmHG ABG pO2 85 (75-100) mmHG ABG HCO3 16 L (22-26) mEq/L ABG Total CO2 15.1 ABG Base Excess -6.7 L (-2.0-2.0) Lactate (0.20-2.00) mmol/L Sodium (136-146) mmol/L Potassium (3.5-5.1) mmol/L Chloride (98-110) mmol/L Carbon Dioxide (21-31) mmol/L BUN (6.0-23.0) mg/dL Creatinine (0.6-1.5) mg/dL Est Cr Clr Drug Dosing mL/min Estimated GFR (MDRD) ml/min Glucose (60-110) mg/dL Calcium (8.8-10.8) mg/dL Phosphorus (2.4-4.7) mg/dL Magnesium (1.5-2.3) mEq/L Total Bilirubin (0.1-1.5) mg/dL Direct Bilirubin (0.0-0.5) mg/dL AST (5-40) IU/L ALT (8-54) IU/L Alkaline Phosphatase (40-150) Troponin I 0.19 (0.0-0.29) NG/ML B-Natriuretic Peptide 381 H (<100) PG/ML Total Protein (6.0-8.0) g/dL Albumin (3.5-5.0) g/dL Globulin (2.0-3.5) g/dL Albumin/Globulin Ratio (1.3-2.8) Amylase (10-90) U/L Lipase (7-80) U/L 03/25/17 03/25/17 03/25/17 Range/Units 04:35 04:35 04:35 WBC 7.26 (4.0-11.0) K/uL RBC 3.27 L (4.30-5.90) M/uL Hgb 8.5 L (12.0-16.0) g/dL Hct 26.6 L (36.0-46.0) % MCV 81.3 (80.0-98.0) fL MCH 26.0 L (27.0-32.0) pg MCHC 32.0 (31.0-37.0) g/dL RDW Std Deviation 46.9 (28.0-62.0) fl RDW Coeff of Lucina 16 H (11.0-15.0) % Plt Count 110 L (150-400) K/uL MPV 9.90 (7.40-12.00) fL Add Manual Diff YES Neutrophils % (Manual) 60 (48.0-80.0) % Band Neutrophils % 27 % Lymphocytes % (Manual) 8 L (16.0-40.0) % Basophils % (Manual) 1 (0.0-1.5) % Metamyelocytes % 4 % Nucleated RBC % 0.0 /100WBC Absolute Seg Neuts 4.4 Band Neutrophils # 2.0 Lymphocytes # (Manual) 0.6 Basophils # (Manual) 0 Absolute Metamyelocyte 0.3 Nucleated RBCs # 0 K/uL ABG pH (7.35-7.45) ABG pCO2 (35-45) mmHG ABG pO2 (75-100) mmHG ABG HCO3 (22-26) mEq/L ABG Total CO2 ABG Base Excess (-2.0-2.0) Lactate (0.20-2.00) mmol/L Sodium 140 (136-146) mmol/L Potassium 3.4 L (3.5-5.1) mmol/L Chloride 113 H (98-110) mmol/L Carbon Dioxide 13 L (21-31) mmol/L BUN 15 (6.0-23.0) mg/dL Creatinine 0.8 (0.6-1.5) mg/dL Est Cr Clr Drug Dosing TNP mL/min Estimated GFR (MDRD) > 60.0 ml/min Glucose 67 (60-110) mg/dL Calcium 7.8 L (8.8-10.8) mg/dL Phosphorus (2.4-4.7) mg/dL Magnesium (1.5-2.3) mEq/L Total Bilirubin 1.0 (0.1-1.5) mg/dL Direct Bilirubin (0.0-0.5) mg/dL AST 102 H (5-40) IU/L ALT 74 H (8-54) IU/L Alkaline Phosphatase 99 (40-150) Troponin I (0.0-0.29) NG/ML B-Natriuretic Peptide (<100) PG/ML Total Protein 4.4 L (6.0-8.0) g/dL Albumin 2.0 L (3.5-5.0) g/dL Globulin 2.4 (2.0-3.5) g/dL Albumin/Globulin Ratio 0.8 L (1.3-2.8) Amylase 12 (10-90) U/L Lipase < 8 (7-80) U/L 03/25/17 Range/Units 04:40 WBC (4.0-11.0) K/uL RBC (4.30-5.90) M/uL Hgb (12.0-16.0) g/dL Hct (36.0-46.0) % MCV (80.0-98.0) fL MCH (27.0-32.0) pg MCHC (31.0-37.0) g/dL RDW Std Deviation (28.0-62.0) fl RDW Coeff of Lucina (11.0-15.0) % Plt Count (150-400) K/uL MPV (7.40-12.00) fL Add Manual Diff Neutrophils % (Manual) (48.0-80.0) % Band Neutrophils % % Lymphocytes % (Manual) (16.0-40.0) % Basophils % (Manual) (0.0-1.5) % Metamyelocytes % % Nucleated RBC % /100WBC Absolute Seg Neuts Band Neutrophils # Lymphocytes # (Manual) Basophils # (Manual) Absolute Metamyelocyte Nucleated RBCs # K/uL ABG pH (7.35-7.45) ABG pCO2 (35-45) mmHG ABG pO2 (75-100) mmHG ABG HCO3 (22-26) mEq/L ABG Total CO2 ABG Base Excess (-2.0-2.0) Lactate 1.6 (0.20-2.00) mmol/L Sodium (136-146) mmol/L Potassium (3.5-5.1) mmol/L Chloride (98-110) mmol/L Carbon Dioxide (21-31) mmol/L BUN (6.0-23.0) mg/dL Creatinine (0.6-1.5) mg/dL Est Cr Clr Drug Dosing mL/min Estimated GFR (MDRD) ml/min Glucose (60-110) mg/dL Calcium (8.8-10.8) mg/dL Phosphorus (2.4-4.7) mg/dL Magnesium (1.5-2.3) mEq/L Total Bilirubin (0.1-1.5) mg/dL Direct Bilirubin (0.0-0.5) mg/dL AST (5-40) IU/L ALT (8-54) IU/L Alkaline Phosphatase (40-150) Troponin I (0.0-0.29) NG/ML B-Natriuretic Peptide (<100) PG/ML Total Protein (6.0-8.0) g/dL Albumin (3.5-5.0) g/dL Globulin (2.0-3.5) g/dL Albumin/Globulin Ratio (1.3-2.8) Amylase (10-90) U/L Lipase (7-80) U/L Med Orders - Current: Current Medications Acetaminophen (Tylenol) 650 mg PO Q6H PRN PRN Reason: Temperature Last Admin: 03/25/17 15:38 Dose: 650 mg Enoxaparin Sodium (Lovenox) 40 mg SUBCUT Q24H [facility] Hydromorphone HCl (Dilaudid) 0.25 mg IVPUSH Q2H PRN PRN Reason: Pain (severe 7-10) Last Admin: 03/25/17 16:19 Dose: 0.25 mg Clindamycin Phosphate 900 mg/ (Premix) 50 mls @ 100 mls/hr IV Q8H [facility] Last Admin: 03/25/17 19:19 Dose: 100 mls/hr Gentamicin Sulfate 132 mg/ (Sodium Chloride) 103.3 mls @ 206.6 mls/hr IV Q8H [facility] Last Admin: 03/25/17 18:59 Dose: 206.6 mls/hr Potassium Chloride/Dextrose/Sod Cl (D5 1/2 Ns W/ 20 Meq/L Kcl) 1,000 mls @ 75 mls/hr IV ASDIRECTED [facility] Last Admin: 03/25/17 11:44 Dose: 75 mls/hr Linezolid 600 mg/ Premix 300 mls @ 300 mls/hr IV Q12H [facility] Last Admin: 03/25/17 16:22 Dose: 300 mls/hr Ondansetron HCl (Zofran Odt) 4 mg PO Q4H PRN PRN Reason: nausea, able to take PO Sodium Chloride (Saline Flush) 10 ml FLUSH ASDIRECTED PRN PRN Reason: Keep Vein Open Sodium Chloride (Saline Flush) 2.5 ml FLUSH ASDIRECTED PRN PRN Reason: Keep Vein Open Discontinued Medications Diphenhydramine HCl (Benadryl) 50 mg IVPUSH ONETIME ONE Stop: 03/25/17 15:20 Last Admin: 03/25/17 15:36 Dose: 50 mg Enoxaparin Sodium (Lovenox) 40 mg SUBCUT Q12HR [facility] Last Admin: 03/24/17 20:36 Dose: 40 mg Furosemide (Lasix) 40 mg IVPUSH NOW ONE Stop: 03/24/17 18:01 Last Admin: 03/24/17 18:15 Dose: 40 mg Furosemide (Lasix) 40 mg IVPUSH NOW ONE Stop: 03/25/17 08:18 Last Admin: 03/25/17 08:30 Dose: 40 mg Gentamicin Sulfate (Gentamicin) 132 mg IV Q8H [facility] Last Admin: 03/25/17 02:55 Dose: 132 mg Hydromorphone HCl (Dilaudid) 0.5 mg IVPUSH ONETIME ONE Stop: 03/24/17 14:44 Last Admin: 03/24/17 15:00 Dose: 0.5 mg Hydromorphone HCl (Dilaudid) 0.25 mg IVPUSH Q2H PRN PRN Reason: Pain (severe 7-10) Sodium Chloride (Normal Saline) 1,000 mls @ 999 mls/hr IV .Bolus ONE Stop: 03/24/17 14:33 Last Admin: 03/24/17 14:00 Dose: 999 mls/hr Cefepime HCl 2 gm/ Premix 50 mls @ 100 mls/hr IV ONETIME ONE Stop: 03/24/17 14:15 Last Admin: 03/24/17 14:20 Dose: 100 mls/hr Vancomycin HCl 1,000 mg/ (Dextrose/Water) 250 mls @ 167 mls/hr IV ONETIME ONE Stop: 03/24/17 15:15 Last Admin: 03/24/17 15:33 Dose: Not Given Sodium Chloride (Normal Saline) 1,000 mls @ 999 mls/hr IV .Bolus ONE Stop: 03/24/17 14:47 Last Admin: 03/24/17 14:00 Dose: 999 mls/hr Vancomycin HCl 1,000 mg/ (Sodium Chloride) 100 mls @ 100 mls/hr IV ONETIME ONE Stop: 03/24/17 15:14 Vancomycin HCl 1,000 mg/ (Sodium Chloride) 250 mls @ 250 mls/hr IV ONETIME ONE Stop: 03/24/17 15:14 Last Admin: 03/24/17 15:32 Dose: Not Given Vancomycin HCl 1 gm/ Sodium (Chloride) 250 mls @ 166 mls/hr IV ONETIME ONE Stop: 03/24/17 15:54 Last Infusion: 03/24/17 14:26 Dose: 250 mls/hr Lactated Ringer's (Ringers, Lactated) 1,000 mls @ 999 mls/hr IV .BOLUS ONE Stop: 03/24/17 18:44 Last Admin: 03/24/17 18:01 Dose: Not Given Clindamycin Phosphate 900 mg/ (Sodium Chloride) 56 mls @ 100 mls/hr IV Q8H [facility] Last Admin: 03/24/17 19:07 Dose: Not Given Meropenem 1 gm/ Sodium (Chloride) 100 mls @ 200 mls/hr IV Q8H [facility] Last Admin: 03/24/17 21:07 Dose: 200 mls/hr Vancomycin HCl 1.25 gm/ Sodium (Chloride) 500 mls @ 333 mls/hr IV Q12H [facility] Last Admin: 03/25/17 02:08 Dose: 333 mls/hr Lactated Ringer's (Ringers, Lactated) 1,000 mls @ 1,000 mls/hr IV ONETIME ONE Stop: 03/25/17 01:29 Last Admin: 03/25/17 01:20 Dose: 1,000 mls/hr Magnesium Sulfate 2 gm/ Premix 50 mls @ 50 mls/hr IV ONETIME ONE Stop: 03/25/17 01:59 Last Admin: 03/25/17 01:43 Dose: 50 mls/hr Meropenem 1 gm/ Sodium (Chloride) 100 mls @ 200 mls/hr IV Q8H [facility] Last Admin: 03/25/17 06:42 Dose: Not Given Meropenem 1 gm/ Sodium (Chloride) 100 mls @ 200 mls/hr IV Q8H [facility] Last Admin: 03/25/17 10:44 Dose: 200 mls/hr Vancomycin HCl 1.5 gm/ Sodium (Chloride) 500 mls @ 333.333 mls/hr IV Q12H [facility] Last Admin: 03/25/17 13:54 Dose: 333.333 mls/hr Albumin Human (Flexbumin 25%) 12.5 gm in 50 mls @ 50 mls/hr IV Q1H [facility] Stop: 03/25/17 12:29 Last Admin: 03/25/17 11:37 Dose: 50 mls/hr Albumin Human (Flexbumin 25%) 12.5 gm in 50 mls @ 100 mls/hr IV ONETIME ONE Stop: 03/25/17 10:27 Last Admin: 03/25/17 10:43 Dose: Not Given Albumin Human (Flexbumin 25%) 12.5 gm in 50 mls @ 100 mls/hr IV ONETIME ONE Stop: 03/25/17 18:05 Last Admin: 03/25/17 18:54 Dose: Not Given Albumin Human (Flexbumin 25%) 12.5 gm in 50 mls @ 100 mls/hr IV ONETIME ONE Stop: 03/25/17 18:06 Last Admin: 03/25/17 17:52 Dose: 100 mls/hr Albumin Human (Flexbumin 25%) 12.5 gm in 50 mls @ 100 mls/hr IV ONETIME ONE Stop: 03/25/17 18:29 Last Admin: 03/25/17 18:11 Dose: 100 mls/hr Iopamidol (Isovue-370 (76%)) 48 ml IV ONETIME STA Stop: 03/25/17 00:24 Last Admin: 03/25/17 01:02 Dose: 48 ml Metoprolol Tartrate (Lopressor) 2.5 mg IVPUSH ONETIME ONE Stop: 03/25/17 17:35 Last Admin: 03/25/17 17:38 Dose: 2.5 mg Metoprolol Tartrate (Lopressor) 2.5 mg IVPUSH ONETIME ONE Stop: 03/25/17 17:45 Last Admin: 03/25/17 18:53 Dose: Not Given Potassium Chloride (Klor-Con M20) 40 meq PO ONETIME ONE Stop: 03/25/17 10:31 Last Admin: 03/25/17 10:37 Dose: 40 meq Ranitidine HCl (Zantac) 150 mg PO NOW STA Stop: 03/25/17 15:21 Last Admin: 03/25/17 15:36 Dose: 150 mg Vancomycin HCl (Pharmacy To Dose - Vancomycin) 1 dose .XX ASDIRECTED KAILASH *Q Meaningful Use (DIS) - VTE *Q VTE Criteria *Q: - Stroke *Q Stroke Criteria *Q: - AMI *Q AMI Criteria *Q:
[2017-03-25] MEDS ORDERED: Sodium Chloride 0.9% 500 ML IV SCH (20:00)
[2017-03-25] MEDS ORDERED: Enoxaparin 40 MG/0.4 ML Syringe SUBCUT SCH (21:00)
[2017-03-25 21:28] VITALS: BP 113/65
--- NOTE | 2017-03-27 18:45 | ECHO ---
The echocardiogram report can be seen in this patient's EMR in the reports section. JAMAR
== END 2017-03-25 21:15 | DRG 872 ==
LOC: MW.ED 13:25 → MW.ICU 14:59
PROVIDERS: ADMIT Internal Medicine; ATTEND Internal Medicine
DX: A41.89 Other specified sepsis (principal); N71.9 Inflammatory disease of uterus, unspecified; R65.20 Severe sepsis without septic shock; O14.25 HELLP syndrome, complicating the puerperium; R00.0 Tachycardia, unspecified; F41.9 Anxiety disorder, unspecified; Z88.8 Allergy status to other drugs, medicaments and biological substances
CPT/HCPCS: 36415; 36600; 71010; 71010-26; 71275; 71275-26; 74176; 74176-26; 80053; 81001; 82150; 82248; 82803; 83605; 83615; 83690; 83735; 83880; 84100; 84484; 85025; 85027; 85379; 87040; 87077; 87086; 87186; 93005; 93306; 96361; 96365; 96368; 96375; 99285-25; 99291; A9270-GY; J0692; J1170; J1200; J1580; J1650; J1940; J2020; J2185; J3370; J3475; J3480; J7030; J7040; J7050; J7120; P9047; Q9967

== ENCOUNTER → 2017-04-07 | Outpatient (CLI) | payer OTHER | LOC: MW.LAB 14:14 | PROVIDERS: ATTEND Obstetrics & Gynecology | DX: A41.9 Sepsis, unspecified organism (principal) | CPT/HCPCS: 36415; 87040; 87086 ==

== ENCOUNTER 2020-07-13 14:49 | Inpatient (IN) | payer OTHER ==
[2020-07-13 17:02] LABS: BLOOD UREA NITROGEN,BUN 10 mg/dL (7.0-18.0); CARBON DIOXIDE,CO2 21.8 mmol/L (21.0-32.0); CHLORIDE,CL 103 mmol/L (98-107); GLUCOSE RANDOM 85 mg/dL (74-106); POTASSIUM,K 4.1 mmol/L (3.5-5.1); SODIUM,NA 136 mmol/L (136-145)
[2020-07-13] MEDS ORDERED: Acetaminophen 325 MG Tab PO PRN (17:12)
[2020-07-13] MEDS ORDERED: Misoprostol 25 MCG (1/4 of 100 MCG) Tab VAG PRN ×2 (17:12)
[2020-07-13] MEDS ORDERED: Terbutaline 1 MG/ML SDV SUBCUT PRN (17:12)
[2020-07-13] MEDS ORDERED: Lidocaine 1% 50 ML MDV INJECT PRN (17:14)
[2020-07-13] MEDS ORDERED: Water For Irrigation,Sterile 1,000 ML Container IRR PRN (17:14)
[2020-07-13] MEDS ORDERED: Nalbuphine 10 MG/1 ML Vial IVPUSH PRN (17:14)
[2020-07-13] MEDS ORDERED: Butorphanol 1 MG/ML SDV IVPUSH PRN (17:14)
[2020-07-13] MEDS ORDERED: Sodium Chloride 0.9% 10 ML Syringe FLUSH PRN (17:14)
[2020-07-13] MEDS ORDERED: Tranexamic Acid 1,000 MG in Sodium Chloride 0.9% 100 ML IV PRN (17:14)
[2020-07-13] MEDS ORDERED: Methylergonovine 0.2 MG/1 ML Amp IM PRN (17:14)
[2020-07-13] MEDS ORDERED: Misoprostol 200 MCG Tab PO PRN (17:14)
[2020-07-13] MEDS ORDERED: Ondansetron 4 MG/2 ML SDV IVPUSH PRN (17:14)
[2020-07-13] MEDS ORDERED: Sodium Chloride 0.9% 10 ML SDV IV PRN (17:14)
[2020-07-13] MEDS ORDERED: Carboprost Tromethamine 250 MCG/1 ML Amp IM PRN (17:14)
[2020-07-13] MEDS ORDERED: Sodium Chloride 0.9% 2.5 ML Syringe FLUSH PRN (17:14)
[2020-07-13] MEDS ORDERED: Oxytocin/0.9 % Sodium Chloride 30 UNIT/500 ML BAG IV SCH (17:15)
--- NOTE | 2020-07-13 17:35 | US ---
Biophysical profile: Multiple real-time images were obtained transabdominally. Comparison: No previous obstetrical imaging for current is available. presentation: Cephalic Amniotic fluid: TASNEEM 18.19 cm Heart rate: 145 bpm Biophysical profile: movement 2, breathing movement 0, tone 0, amniotic fluid volume 2 Impression: 1. Single intrauterine fetus currently cephalic in presentation. 2. 4 out of 8 on biophysical profile. Diagnostic code #5 This report was dictated in MDT
[2020-07-13] MEDS: Sertraline 100 MG Tab PO SCH (22:14)
[2020-07-14] MEDS: Lactated Ringers 1,000 ML IV SCH ×3 (04:46→10:19)
[2020-07-14] MEDS: Oxytocin/0.9 % Sodium Chloride 30 UNIT/500 ML BAG IV SCH ×2 (04:48→13:08)
[2020-07-14] MEDS ORDERED: Ropivacaine HCl/PF 100 ML ONE (09:02)
[2020-07-14] MEDS ORDERED: fentaNYL 100 MCG/2 ML SDV ONE (09:02)
--- NOTE | 2020-07-14 09:51 | PCM.PREANE ---
Preanesthetic Assessment - Anesthesia/Transfusion/Family Hx Anesthesia History: Prior Anesthesia Without Reaction Family History of Anesthesia Reaction: No Transfusion History: No Prior Transfusion(s) - Physical Assessment NPO Status Date: 07/14/20 NPO Status Time: 06:00 Height: 1.65 m Weight: 90.718 kg ASA Class: 2 - Lab Values: Laboratory Last Values WBC 7.37 K/uL (4.0-11.0) 07/13/20 16:18 RBC 3.93 M/uL (4.30-5.90) L 07/13/20 16:18 Hgb 10.2 g/dL (12.0-16.0) L 07/13/20 16:18 Hct 32.2 % (36.0-46.0) L 07/13/20 16:18 MCV 81.9 fL (80.0-98.0) 07/13/20 16:18 MCH 26.0 pg (27.0-32.0) L 07/13/20 16:18 MCHC 31.7 g/dL (31.0-37.0) 07/13/20 16:18 RDW Std Deviation 55.3 fl (28.0-62.0) 07/13/20 16:18 RDW Coeff of Lucina 20 % (11.0-15.0) H 07/13/20 16:18 Plt Count 167 K/uL (150-400) 07/13/20 16:18 MPV 11.30 fL (7.40-12.00) 07/13/20 16:18 Neut % (Auto) 75.9 % (48.0-80.0) 07/13/20 16:18 Lymph % (Auto) 14.7 % (16.0-40.0) L 07/13/20 16:18 [place] % (Auto) 9.0 % (0.0-15.0) 07/13/20 16:18 Eos % (Auto) 0.3 % (0.0-7.0) 07/13/20 16:18 Baso % (Auto) 0.1 % (0.0-1.5) 07/13/20 16:18 Neut # (Auto) 5.6 K/uL (1.4-5.7) 07/13/20 16:18 Lymph # (Auto) 1.1 K/uL (0.6-2.4) 07/13/20 16:18 [place]ays # (Auto) 0.7 K/uL (0.0-0.8) 07/13/20 16:18 Eos # (Auto) 0.0 K/uL (0.0-0.7) 07/13/20 16:18 Baso # (Auto) 0.0 K/uL (0.0-0.1) 07/13/20 16:18 Nucleated RBC % 0.2 /100WBC 07/13/20 16:18 Nucleated RBCs # 0 K/uL 07/13/20 16:18 Sodium 136 mmol/L (136-145) 07/13/20 16:18 Potassium 4.1 mmol/L (3.5-5.1) 07/13/20 16:18 Chloride 103 mmol/L (98-107) 07/13/20 16:18 Carbon Dioxide 21.8 mmol/L (21.0-32.0) 07/13/20 16:18 BUN 10 mg/dL (7.0-18.0) 07/13/20 16:18 Creatinine 0.8 mg/dL (0.6-1.0) 07/13/20 16:18 Est Cr Clr Drug Dosing TNP 07/13/20 16:18 Estimated GFR (MDRD) > 60.0 ml/min 07/13/20 16:18 Glucose 85 mg/dL (74-106) 07/13/20 16:18 Uric Acid 5.3 mg/dL (2.6-7.2) 07/13/20 16:18 Calcium 8.6 mg/dL (8.5-10.1) 07/13/20 16:18 Total Bilirubin 0.2 mg/dL (0.2-1.0) 07/13/20 16:18 AST 16 IU/L (15-37) 07/13/20 16:18 ALT 12 IU/L (14-63) L 07/13/20 16:18 Alkaline Phosphatase 107 U/L (46-116) 07/13/20 16:18 Total Protein 6.1 g/dL (6.4-8.2) L 07/13/20 16:18 Albumin 2.6 g/dL (3.4-5.0) L 07/13/20 16:18 Globulin 3.5 g/dL (2.6-4.0) 07/13/20 16:18 Albumin/Globulin Ratio 0.7 (0.9-1.6) L 07/13/20 16:18 Ur Random Creatinine 151.2 mg/dL 07/13/20 17:30 U Random Total Protein 31.0 mg/dL (<11.9) H 07/13/20 17:30 Protein/Creatinin Ratio 0.2 07/13/20 17:30 COVID-19 (JAMIL) NEGATIVE (NEGATIVE) 07/13/20 17:49 Blood Type A POSITIVE 07/13/20 16:18 Antibody Screen NEGATIVE 07/13/20 16:18 - Allergies Allergies/Adverse Reactions: Allergies Allergy/AdvReac Type Severity Reaction Status Date / Time amoxicillin Allergy Hives Verified 07/12/20 20:09 sulfamethoxazole Allergy Vomiting Verified 07/12/20 20:09 [From Bactrim] trimethoprim [From Bactrim] Allergy Vomiting Verified 07/12/20 20:09 - Acknowledgements Anesthesia Type Planned: Epidural Pt an Appropriate Candidate for the Planned Anesthesia: Yes Alternatives and Risks of Anesthesia Discussed w Pt/Guardian: Yes Pt/Guardian Understands and Agrees with Anesthesia Plan: Yes PreAnesthesia Questionnaire - Past Health History Medical/Surgical History: Denies Medical/Surgical History HEENT History: Reports: Impaired Vision Cardiovascular History: Reports: Other (See Below) Other Cardiovascular History: Hx of preeclampsia; Hx of Hypertension Genitourinary History: Reports: UTI, Recurrent COURT MAGISTRATE History: Reports: , Other (See Below) Psychiatric History: Reports: Anxiety Other Psychiatric History: Utilizes Setraline for pharmacological interventions. Dermatologic History: Reports: Eczema - Infectious Disease History Infectious Disease History: Reports: Influenza - Past Surgical History HEENT Surgical History: Reports: Oral Surgery Cardiovascular Surgical History: Reports: None Female Surgical History: Reports: None - SUBSTANCE USE Smoking Status *Q: Never Smoker Tobacco Use Within Last Twelve Months: No Second Hand Smoke Exposure: No Recreational Drug Use History: No - HOME MEDS Home Medications: Home Meds Aspirin [Adult Low Dose Aspirin EC] 162 mg PO DAILY 07/12/20 [History] Elderberry Fruit and Flower [Black Elderberry 575 mg Cap] 1 each PO DAILY 07/12/20 [History] Vits #93/Iron Fum/FA [ Formula Tablet] 1 each PO DAILY 07/12/20 [History] Sertraline [Zoloft] 100 mg PO DAILY 07/12/20 [History] - CURRENT (IN HOUSE) MEDS Current Meds: Current Medications Acetaminophen (Tylenol) 650 mg PO Q4H PRN PRN Reason: Pain Butorphanol Tartrate (Stadol) 1 mg IVPUSH Q1H PRN PRN Reason: Pain Carboprost Tromethamine (Hemabate Ds) 250 mcg IM ASDIRECTED PRN PRN Reason: Post Hemorrhage Oxytocin/Sodium Chloride (Oxytocin 30 Unit/500 Ml-Ns) 30 unit in 500 mls @ 2 mls/hr IV TITRATE KAILASH; Protocol Last Titration: 07/14/20 06:29 Dose: 10 munits/min, 10 mls/hr Documented by: Lactated Ringer's (Ringers, Lactated) 1,000 mls @ 150 mls/hr IV ASDIRECTED [facility] Last Admin: 07/14/20 09:11 Dose: 999 mls/hr Documented by: Oxytocin/Sodium Chloride (Oxytocin 30 Unit/500 Ml-Ns) 30 unit in 500 mls @ 2 mls/hr IV TITRATE KAILASH Tranexamic Acid 1,000 mg/ (Sodium Chloride) 110 mls @ 660 mls/hr IV ONETIME PRN PRN Reason: Bleeding Lidocaine HCl (Xylocaine 1%) 50 ml INJECT ONETIME PRN PRN Reason: Laceration repair Methylergonovine Maleate (Methergine) 0.2 mg IM ASDIRECTED PRN PRN Reason: Post Hemorrhage Misoprostol (Cytotec) 25 mcg VAG ONETIME PRN PRN Reason: Cervical Ripening Last Admin: 07/13/20 18:38 Dose: 25 mcg Documented by: Misoprostol (Cytotec) 25 mcg VAG Q4H PRN PRN Reason: Cervical Ripening Last Admin: 07/13/20 22:43 Dose: 25 mcg Documented by: Misoprostol (Cytotec) 200 mcg PO ONETIME PRN PRN Reason: Post Hemorrhage Nalbuphine HCl (Nubain) 10 mg IVPUSH Q1H PRN PRN Reason: Pain (severe 7-10) Ondansetron HCl (Zofran) 4 mg IVPUSH Q4H PRN PRN Reason: Nausea/Vomiting Sertraline HCl (Zoloft) 100 mg PO BEDTIME [facility] Last Admin: 07/13/20 22:14 Dose: 100 mg Documented by: Sodium Chloride (Saline Flush) 10 ml FLUSH ASDIRECTED PRN PRN Reason: Keep Vein Open Sodium Chloride (Saline Flush) 2.5 ml FLUSH ASDIRECTED PRN PRN Reason: Keep Vein Open Sodium Chloride (Normal Saline) 10 ml IV ASDIRECTED PRN PRN Reason: IV Use Sterile Water (Sterile Water For Irrigation) 1,000 ml IRR ASDIRECTED PRN PRN Reason: delivery Terbutaline Sulfate (Brethine) 0.25 mg SUBCUT ASDIRECTED PRN PRN Reason: Tacysystole Discontinued Medications Fentanyl (Sublimaze) Confirm Administered Dose 100 mcg .ROUTE .STK-MED ONE Stop: 07/14/20 09:03 Ropivacaine (Naropin 0.2%) Confirm Administered Dose 100 mls @ as directed .ROUTE .STK-MED ONE Stop: 07/14/20 09:03 Sertraline HCl (Zoloft) 100 mg PO BEDTIME [facility]
--- NOTE | 2020-07-14 09:57 | PCM.PRNOTE ---
- Free Text/Narrative Note: Anes Note pt requested labor epidural for L & D Risks and methods discussed. She wishes to proceed Level L2-L3 midline approach. Sterile technique ChloraPrep scrub to lumbar area Sterile fenestrated drape applied Epidural space easily achieved. Single attempt using JAZIEL technique JAZIEL at 4cm. Cath threaded 5 cm with ease Cath secured at skin at 10cm using sterile clear adhesive dressing Test dose 0915. 3cc 1.5% lido with epi neg Load dose 0918 10cc 0.2% Ropivacaine with 1mcg/cc Fentanyl added Pump 0920 90cc same solution Rate is 8cc/hr with 6cc q 20min bolus SOLA well Time with patient [id number] Woody Torres SPIRITUAL ADVISOR
[2020-07-14] MEDS ORDERED: Lanolin 100% Cream 7 GM Tube TOP PRN (13:33)
[2020-07-14] MEDS ORDERED: Acetaminophen 500 MG Tab PO PRN (13:33)
[2020-07-14] MEDS ORDERED: Docusate Sodium 100 MG Cap PO PRN (13:33)
[2020-07-14] MEDS ORDERED: Bisacodyl 10 MG Supp RECTAL PRN (13:33)
[2020-07-14] MEDS ORDERED: Ibuprofen 400 MG Tab PO PRN (13:33)
[2020-07-14] MEDS ORDERED: oxyCODONE 5 MG Tab PO PRN (13:33)
--- NOTE | 2020-07-14 13:33 | PCM.OPNOTE ---
- General Post-Op/Procedure Note Date of Surgery/Procedure: 07/14/20 Operative Procedure(s): of a male at 39w0d gestational age to a 29 year old female with induction of labor for gestational hypertension. Apgars 7/8 Pre Op Diagnosis: Induction of labor at 36w6d for gestational hypertension. History of preeclampsia with previous . History of sepsis following protracted labor with transfer to [facility]. Vanishing twin Post-Op Diagnosis: Induction of labor at 36w6d for gestational hypertension. History of preeclampsia with previous . History of sepsis following protracted labor with transfer to [facility]. Vanishing twin Anesthesia Technique: Epidural Primary Surgeon: Bhavana Cowart Secondary Surgeon: Brooke Greer (MSIV) Anesthesia Provider: Woody Torres (CAR RETARDER OPERATOR ) Pathology: Placenta appeared intact, 3 vessel cord. Placenta sent to pathology for multifactorial reasons, including previous episode of sepsis and preeclampsia following in addition to gestational age and history of vanishing twin. EBL in mLs: 200 Complications: Nuchal cord x 1, Midline first degree laceration Condition: Good Free Text/Narrative:: Patient is a who was induced for gestational hypertension at 36w6d on 07/13/20 with history of preeclampsia and sepsis with transfer to [facility] following delivery of her first and history of depression managed with Sertraline 100mg and anemia managed with IV iron therapy . The patient presented to clinic on 07/13/20 with mild headache and blood pressures of 140-150/90-100. The patient was then admitted for induction of labor. The patient received care; GBS negative, rubella nonimmune, A+ with negative antibody screen. A twin gestation was noted on US without cardiac activity in twin B. Remainder growth of twin A demonstrated interval growth. Upon admission the patient's hemoglobin was 10.2, platelets 167,000, LFT within normal, Protein/Creatinine ratio of 0.2 and uric acid levels of 5.3. The patient's blood pressures remained 120s-140s/80s-90s, with a single blood pressure of 151/100 noted at 1630 07/13/20. The patient was given a dose of Cytotec at 2245 on 07/13/20. The patient rested, and Pitocin was started at 0448. An epidural was placed at 0904. Pitocin was turned off at 0915. At 1152 the patient was 10 cm dilated and began pushing. Occasional late decelerations were noted with good variability and the patient was repositioned. At 1304 of a male occurred with a nuchal cord x 1. The cord was reduced, the was suctioned and placed on the mother's abdomen. The cried, was stimulated and warmed. The cord was clamped and cut by the 's father. Arterial and venous cord gases were drawn and cord blood was obtained. The placenta was delivered at 1313; the placenta was inspected, confirmed to be intact with a three vessel cord. The placenta was sent to pathology due to the patient's history, status and history of vanishing twin. The vaginal figueredo were inspected; a single midline laceration was noted. The laceration was repaired with a single figure of 8 suture. The vaginal tissue was then reinspected; the appeared to be no active bleeding.
[2020-07-14] MEDS: Witch Hazel Medicated Pads 40/Jar TOP PRN (14:11)
[2020-07-14] MEDS: Benzocaine/Menthol 20%-0.5% Spray 78 GM Cannister TOP PRN (14:11)
[2020-07-14] MEDS: Ibuprofen 800 MG Tab PO PRN (14:12)
--- NOTE | 2020-07-14 15:32 | OR ---
SURGEON: Bhavana Cowart M.D. DATE OF PROCEDURE: 07/14/2020 PREOPERATIVE DIAGNOSES: 1. A 37-week intrauterine . 2. Gestational hypertension. POSTOPERATIVE DIAGNOSES: 1. A 37-week intrauterine . 2. Gestational hypertension. PROCEDURE: Spontaneous vaginal delivery, first-degree midline laceration repaired. PRIMARY SURGEON: Bhavana Cowart MD SOFTWARE DESIGN ANALYST: YANDEL Melendez ESTIMATED BLOOD LOSS: 200 mL. ANESTHESIA: Epidural. COMPLICATIONS: None known. FINDINGS: Viable male. score of 7 at one minute, 9 at five minutes. Weight is 6 pounds 6 ounces. Spontaneous delivery, intact placenta, 3-vessel cord, to pathology for further analysis. DISPOSITION: Infant to nursery, mom in LDRP, stable. PROCEDURE DETAILS: Ju is a 29-year-old, G2, P1, at 37 weeks' gestational age, who presented on the afternoon of 07/13/2020 to clinic as she has been closely followed for elevated blood pressures. In clinic, the blood pressures were 150s over 90s. She did have a headache. Therefore, she was admitted to Labor and Delivery for monitoring. CBC is reassuring. Urine protein-creatinine ratio is 0.2 with normal LFTs. So given headache and elevated blood pressures at term gestation and known history of preeclampsia, felt it was best to proceed with induction of labor. The patient was agreeable to this plan of care. Risks of procedure have been discussed. Proper consent obtained. The patient was admitted, IV was inserted. Blood pressures while we monitored were in the 130s over 80s. Cervix was only fingertip and thick. Therefore, was initiated on Cytotec ripening, responded very nicely to this. By the following morning, was found to be 3 cm, 60% effaced, minus 3 station. Group B beta strep is negative. Category 1 heart tones. Therefore, she was transitioned to Pitocin. Shortly after 8 a.m., amniotomy was performed, a large amount of clear fluid was returned. The patient continued to progress nicely and became increasingly uncomfortable, underwent regional anesthesia in the form of epidural, became more comfortable. The patient progressed fairly quickly to complete by noon, began pushing efforts, pushed readily for the next hour. I was called for delivery. Upon my arrival, the patient was placed in modified dorsal lithotomy position, was prepped and draped in usual aseptic manner. Continued with pushing efforts, was able to deliver infant's head atraumatically spontaneously, followed by anterior shoulder, posterior shoulder, and remainder of the body without difficulty. There was nuchal cord x1, reduced manually. Infant's oropharynx and nares were bulb suctioned. Infant was handed off to his mother with attending nursing staff at her side. After a delay, cord was clamped x2 and cut. Cord arterial, cord venous, cord blood sampling was obtained. Light pressure was applied while the placenta was delivered spontaneously intact. Vigorous fundal uterine massage was then applied while 30 units of Pitocin was delivered in 500 mL IV fluid. Upon inspection of cervix, vaginal sidewall, and perineum, there was found to be a first-degree midline laceration. This was repaired using 3-0 Vicryl in the usual fashion. Uterus remained firm. Hemostasis evident. Sponge count, instrument count, and needle count were correct. Placenta will go to pathology. The patient will remain in LDRP, we will monitor blood pressures closely. Last blood pressure 130s over 80s. to nursery. JEN / SG /[id number]
[2020-07-14] MEDS: Acetaminophen 500 MG Tab PO PRN (19:34)
[2020-07-14] MEDS: Sertraline 100 MG Tab PO SCH ×2 (20:49→21:04)
[2020-07-14] MEDS ORDERED: Sertraline 100 MG Tab PO SCH (21:00)
--- NOTE | 2020-07-15 07:33 | PCM48HPAN ---
Post Anesthesia Note - EVALUATION WITHIN 48HRS OF ANESTHETIC Vital Signs in Normal Range: Yes Patient Participated in Evaluation: Yes Respiratory Function Stable: Yes Airway Patent: Yes Cardiovascular Function Stable: Yes Hydration Status Stable: Yes Pain Control Satisfactory: Yes Nausea and Vomiting Control Satisfactory: Yes Mental Status Recovered: Yes Vital Signs: Last Vital Signs Temp 36.5 C 07/15/20 04:32 Pulse 82 07/15/20 04:32 Resp 16 07/15/20 04:32 BP 120/67 07/15/20 04:32 Pulse Ox 97 07/15/20 04:32
[2020-07-15] MEDS: Acetaminophen 500 MG Tab PO PRN ×2 (08:09→14:36)
[2020-07-15] MEDS: Ibuprofen 800 MG Tab PO PRN ×2 (08:11→14:34)
--- NOTE | 2020-07-15 09:27 | PCM.PNPP ---
- General Info Date of Service: 07/15/20 Admission Dx/Problem (Free Text): 29yo at 36w6d admitted to LDR for IOL due to gestational hypertension and history of complicated course including preeclampsia and severe sepsis. Subjective Update: Resting comfortably in bed this morning. Reports mild headache this morning and has received Tylenol recently. Denies visual changes or right upper quadrant pain. Reports abdominal cramping with but pain overall controlled with PO medications. Ambulating and voiding without difficulty. Lochia decreasing. Reports some anxiety regarding discharge and requests additional monitor of lab work throughout hospital stay. - General Info Date of Service: 07/15/20 - Patient Data Vital Signs - Most Recent: Last Vital Signs Temp 97.8 F 07/15/20 07:00 Pulse 82 07/15/20 07:00 Resp 18 07/15/20 07:00 BP 137/92 H 07/15/20 07:00 Pulse Ox 97 07/15/20 07:00 Weight - Most Recent: 200 lb Lab Results - Last 24 Hours: Laboratory Results - last 24 hr 07/14/20 07/15/20 Range/Units 13:03 06:10 WBC 7.08 (4.0-11.0) K/uL RBC 3.89 L (4.30-5.90) M/uL Hgb 9.9 L (12.0-16.0) g/dL Hct 32.3 L (36.0-46.0) % MCV 83.0 (80.0-98.0) fL MCH 25.4 L (27.0-32.0) pg MCHC 30.7 L (31.0-37.0) g/dL RDW Std Deviation 61.7 (28.0-62.0) fl RDW Coeff of Lucina 21 H (11.0-15.0) % Plt Count 148 L (150-400) K/uL MPV 11.10 (7.40-12.00) fL Nucleated RBC % 0.0 /100WBC Nucleated RBCs # 0 K/uL Cord ABG pH 7.171 L (7.18-7.38) Cord ABG Base Excess -9 (-10--2) Cord VBG pH 7.272 (7.25-7.45) Cord VBG Base Excess -8 (-10--2) Med Orders - Current: Current Medications Acetaminophen (Tylenol) 650 mg PO Q4H PRN PRN Reason: Pain Acetaminophen (Tylenol Extra Strength) 500 mg PO Q4H PRN PRN Reason: Pain Acetaminophen (Tylenol Extra Strength) 1,000 mg PO Q4H PRN PRN Reason: Pain Last Admin: 07/15/20 08:09 Dose: 1,000 mg Documented by: Benzocaine/Menthol (Dermoplast Pain Relief 20%-0.5% Orefield) 78 gm TOP ASDIRECTED PRN PRN Reason: Perineal Comfort Measure Last Admin: 07/14/20 14:11 Dose: 1 spray Documented by: Bisacodyl (Dulcolax) 10 mg RECTAL ONETIME PRN PRN Reason: Constipation Docusate Sodium (Colace) 100 mg PO BID PRN PRN Reason: Constipation Last Admin: 07/15/20 08:09 Dose: 100 mg Documented by: Emollient Ointment (Lansinoh Hpa) 0 gm TOP ASDIRECTED PRN PRN Reason: Sore Nipples Last Admin: 07/14/20 14:11 Dose: 7 gm Documented by: Oxytocin/Sodium Chloride (Oxytocin 30 Unit/500 Ml-Ns) 30 unit in 500 mls @ 2 mls/hr IV TITRATE KAILASH; Protocol Last Admin: 07/14/20 13:08 Dose: 999 munits/min, 999 mls/hr Documented by: Lactated Ringer's (Ringers, Lactated) 1,000 mls @ 150 mls/hr IV ASDIRECTED KAILASH Last Infusion: 07/14/20 11:36 Dose: 999 mls/hr Documented by: Oxytocin/Sodium Chloride (Oxytocin 30 Unit/500 Ml-Ns) 30 unit in 500 mls @ 2 mls/hr IV TITRATE KAILASH Tranexamic Acid 1,000 mg/ (Sodium Chloride) 110 mls @ 660 mls/hr IV ONETIME PRN PRN Reason: Bleeding Ibuprofen (Motrin) 400 mg PO Q4H PRN PRN Reason: Pain Ibuprofen (Motrin) 800 mg PO Q6H PRN PRN Reason: Pain Last Admin: 07/15/20 08:11 Dose: 800 mg Documented by: Lidocaine HCl (Xylocaine 1%) 50 ml INJECT ONETIME PRN PRN Reason: Laceration repair Misoprostol (Cytotec) 25 mcg VAG ONETIME PRN PRN Reason: Cervical Ripening Last Admin: 07/13/20 18:38 Dose: 25 mcg Documented by: Nalbuphine HCl (Nubain) 10 mg IVPUSH Q1H PRN PRN Reason: Pain (severe 7-10) Ondansetron HCl (Zofran) 4 mg IVPUSH Q4H PRN PRN Reason: Nausea/Vomiting Oxycodone HCl (Oxycodone) 5 mg PO Q2H PRN PRN Reason: Pain Sertraline HCl (Zoloft) 100 mg PO BEDTIME KAILASH Last Admin: 07/14/20 21:04 Dose: 100 mg Documented by: Sodium Chloride (Saline Flush) 10 ml FLUSH ASDIRECTED PRN PRN Reason: Keep Vein Open Sodium Chloride (Saline Flush) 2.5 ml FLUSH ASDIRECTED PRN PRN Reason: Keep Vein Open Sodium Chloride (Normal Saline) 10 ml IV ASDIRECTED PRN PRN Reason: IV Use Sterile Water (Sterile Water For Irrigation) 1,000 ml IRR ASDIRECTED PRN PRN Reason: delivery Last Admin: 07/14/20 13:12 Dose: 1,000 ml Documented by: Irlanda Aguila (Subha) 1 pad TOP ASDIRECTED PRN PRN Reason: comfort care Last Admin: 07/14/20 14:11 Dose: 1 pack Documented by: Discontinued Medications Butorphanol Tartrate (Stadol) 1 mg IVPUSH Q1H PRN PRN Reason: Pain Carboprost Tromethamine (Hemabate Ds) 250 mcg IM ASDIRECTED PRN PRN Reason: Post Hemorrhage Fentanyl (Sublimaze) Confirm Administered Dose 100 mcg .ROUTE .STK-MED ONE Stop: 07/14/20 09:03 Ropivacaine (Naropin 0.2%) Confirm Administered Dose 100 mls @ as directed .ROUTE .STK-MED ONE Stop: 07/14/20 09:03 Methylergonovine Maleate (Methergine) 0.2 mg IM ASDIRECTED PRN PRN Reason: Post Hemorrhage Misoprostol (Cytotec) 25 mcg VAG Q4H PRN PRN Reason: Cervical Ripening Last Admin: 07/13/20 22:43 Dose: 25 mcg Documented by: Misoprostol (Cytotec) 200 mcg PO ONETIME PRN PRN Reason: Post Hemorrhage Sertraline HCl (Zoloft) 100 mg PO BEDTIME KAILASH Terbutaline Sulfate (Brethine) 0.25 mg SUBCUT ASDIRECTED PRN PRN Reason: Tacysystole - Infant Interaction Infant Disposition, : [place] in Room with Family Support Person: - Recovery Exam Fundal Tone: Firm Fundal Level: At Umbilicus Fundal Placement: Midline Other Perinuem Description: 1st degree laceration Bladder Status: Voiding - Problem List & Annotations (1) Gestational hypertension SNOMED Code(s): 503963753 Code(s): O13.9 - GESTATIONAL HTN W/O SIGNIFICANT PROTEINURIA, UNSP TRIMESTER Status: Acute Current Visit: Yes Qualifiers: Trimester: third trimester Qualified Code(s): O13.3 - Gestational [preg beth-induced] hypertension without significant proteinuria, third trimester (2) Vaginal delivery SNOMED Code(s): 403603515 Code(s): O80 - ENCOUNTER FOR FULL-TERM UNCOMPLICATED DELIVERY Status: Acute Current Visit: Yes - Problem List Review Problem List Initiated/Reviewed/Updated: Yes - Assessment Assessment:: 29yo PPD1 s/p IOL for gestational hypertension and - Plan Plan:: Routine cares * Rh positive, GBS negative * Rubella non-immune; will administer MMR vaccine * Hgb 10.2> 9.9, lochia stable; asymptomatic. * Pain controlled with PO medications * Working on Gestational hypertension * BPs normotensive overnight * VSS, labs stable. * Will repeat labs this evening for close surveillance. Dispo: stable. Anticipate discharge tomorrow due to diagnosis of gestational hypertension and history of complicated course in primary . Continue cares today.
[2020-07-15 19:22] LABS: BLOOD UREA NITROGEN,BUN 11 mg/dL (7.0-18.0); CARBON DIOXIDE,CO2 24.1 mmol/L (21.0-32.0); CHLORIDE,CL 100 mmol/L (98-107); GLUCOSE RANDOM 112 mg/dL (74-106); POTASSIUM,K 3.8 mmol/L (3.5-5.1); SODIUM,NA 134 mmol/L (136-145)
--- NOTE | 2020-07-15 20:51 | PCM.PN ---
- General Info Date of Service: 07/15/20 - Patient Data Vitals - Most Recent: Last Vital Signs Temp 97.9 F 07/15/20 20:36 Pulse 104 H 07/15/20 20:36 Resp 18 07/15/20 20:36 BP 134/89 07/15/20 20:36 Pulse Ox 93 L 07/15/20 20:36 Weight - Most Recent: 200 lb Lab Results Last 24 Hours: Laboratory Results - last 24 hr 07/15/20 07/15/20 07/15/20 Range/Units 06:10 18:50 18:50 WBC 7.08 8.44 (4.0-11.0) K/uL RBC 3.89 L 3.80 L (4.30-5.90) M/uL Hgb 9.9 L 9.8 L (12.0-16.0) g/dL Hct 32.3 L 31.5 L (36.0-46.0) % MCV 83.0 82.9 (80.0-98.0) fL MCH 25.4 L 25.8 L (27.0-32.0) pg MCHC 30.7 L 31.1 (31.0-37.0) g/dL RDW Std Deviation 61.7 62.4 H (28.0-62.0) fl RDW Coeff of Lucina 21 H 21 H (11.0-15.0) % Plt Count 148 L 161 (150-400) K/uL MPV 11.10 10.40 (7.40-12.00) fL Nucleated RBC % 0.0 0.0 /100WBC Nucleated RBCs # 0 0 K/uL Sodium 134 L (136-145) mmol/L Potassium 3.8 (3.5-5.1) mmol/L Chloride 100 (98-107) mmol/L Carbon Dioxide 24.1 (21.0-32.0) mmol/L BUN 11 (7.0-18.0) mg/dL Creatinine 0.9 (0.6-1.0) mg/dL Est Cr Clr Drug Dosing 82.25 mL/min Estimated GFR (MDRD) > 60.0 ml/min Glucose 112 H (74-106) mg/dL Uric Acid 4.7 (2.6-7.2) mg/dL Calcium 8.3 L (8.5-10.1) mg/dL Total Bilirubin 0.3 (0.2-1.0) mg/dL AST 20 (15-37) IU/L ALT 15 (14-63) IU/L Alkaline Phosphatase 87 (46-116) U/L Total Protein 5.7 L (6.4-8.2) g/dL Albumin 2.4 L (3.4-5.0) g/dL Globulin 3.3 (2.6-4.0) g/dL Albumin/Globulin Ratio 0.7 L (0.9-1.6) Med Orders - Current: Current Medications Acetaminophen (Tylenol) 650 mg PO Q4H PRN PRN Reason: Pain Acetaminophen (Tylenol Extra Strength) 500 mg PO Q4H PRN PRN Reason: Pain Acetaminophen (Tylenol Extra Strength) 1,000 mg PO Q4H PRN PRN Reason: Pain Last Admin: 07/15/20 14:36 Dose: 1,000 mg Documented by: Benzocaine/Menthol (Dermoplast Pain Relief 20%-0.5% Milo) 78 gm TOP ASDIRECTED PRN PRN Reason: Perineal Comfort Measure Last Admin: 07/14/20 14:11 Dose: 1 spray Documented by: Bisacodyl (Dulcolax) 10 mg RECTAL ONETIME PRN PRN Reason: Constipation Docusate Sodium (Colace) 100 mg PO BID PRN PRN Reason: Constipation Last Admin: 07/15/20 08:09 Dose: 100 mg Documented by: Emollient Ointment (Lansinoh Hpa) 0 gm TOP ASDIRECTED PRN PRN Reason: Sore Nipples Last Admin: 07/14/20 14:11 Dose: 7 gm Documented by: Oxytocin/Sodium Chloride (Oxytocin 30 Unit/500 Ml-Ns) 30 unit in 500 mls @ 2 mls/hr IV TITRATE KAILASH; Protocol Last Admin: 07/14/20 13:08 Dose: 999 munits/min, 999 mls/hr Documented by: Lactated Ringer's (Ringers, Lactated) 1,000 mls @ 150 mls/hr IV ASDIRECTED KAILASH Last Infusion: 07/14/20 11:36 Dose: 999 mls/hr Documented by: Oxytocin/Sodium Chloride (Oxytocin 30 Unit/500 Ml-Ns) 30 unit in 500 mls @ 2 mls/hr IV TITRATE [facility] Tranexamic Acid 1,000 mg/ (Sodium Chloride) 110 mls @ 660 mls/hr IV ONETIME PRN PRN Reason: Bleeding Ibuprofen (Motrin) 400 mg PO Q4H PRN PRN Reason: Pain Ibuprofen (Motrin) 800 mg PO Q6H PRN PRN Reason: Pain Last Admin: 07/15/20 14:34 Dose: 800 mg Documented by: Lidocaine HCl (Xylocaine 1%) 50 ml INJECT ONETIME PRN PRN Reason: Laceration repair Misoprostol (Cytotec) 25 mcg VAG ONETIME PRN PRN Reason: Cervical Ripening Last Admin: 07/13/20 18:38 Dose: 25 mcg Documented by: Nalbuphine HCl (Nubain) 10 mg IVPUSH Q1H PRN PRN Reason: Pain (severe 7-10) Ondansetron HCl (Zofran) 4 mg IVPUSH Q4H PRN PRN Reason: Nausea/Vomiting Oxycodone HCl (Oxycodone) 5 mg PO Q2H PRN PRN Reason: Pain Sertraline HCl (Zoloft) 100 mg PO BEDTIME KAILASH Last Admin: 07/14/20 21:04 Dose: 100 mg Documented by: Sodium Chloride (Saline Flush) 10 ml FLUSH ASDIRECTED PRN PRN Reason: Keep Vein Open Sodium Chloride (Saline Flush) 2.5 ml FLUSH ASDIRECTED PRN PRN Reason: Keep Vein Open Sodium Chloride (Normal Saline) 10 ml IV ASDIRECTED PRN PRN Reason: IV Use Sterile Water (Sterile Water For Irrigation) 1,000 ml IRR ASDIRECTED PRN PRN Reason: delivery Last Admin: 07/14/20 13:12 Dose: 1,000 ml Documented by: Irlanda Aguila (Subha) 1 pad TOP ASDIRECTED PRN PRN Reason: comfort care Last Admin: 07/14/20 14:11 Dose: 1 pack Documented by: Discontinued Medications Butorphanol Tartrate (Stadol) 1 mg IVPUSH Q1H PRN PRN Reason: Pain Carboprost Tromethamine (Hemabate Ds) 250 mcg IM ASDIRECTED PRN PRN Reason: Post Hemorrhage Fentanyl (Sublimaze) Confirm Administered Dose 100 mcg .ROUTE .K-MED ONE Stop: 07/14/20 09:03 Ropivacaine (Naropin 0.2%) Confirm Administered Dose 100 mls @ as directed .ROUTE .STK-MED ONE Stop: 07/14/20 09:03 Methylergonovine Maleate (Methergine) 0.2 mg IM ASDIRECTED PRN PRN Reason: Post Hemorrhage Misoprostol (Cytotec) 25 mcg VAG Q4H PRN PRN Reason: Cervical Ripening Last Admin: 07/13/20 22:43 Dose: 25 mcg Documented by: Misoprostol (Cytotec) 200 mcg PO ONETIME PRN PRN Reason: Post Hemorrhage Sertraline HCl (Zoloft) 100 mg PO BEDTIME KAILASH Terbutaline Sulfate (Brethine) 0.25 mg SUBCUT ASDIRECTED PRN PRN Reason: Tacysystole Sepsis Event Note - Evaluation Sepsis Screening Result: No Definite Risk - Focused Exam Vital Signs: Vital Signs Temp Pulse Resp BP Pulse Ox 07/15/20 20:36 97.9 F 104 H 18 134/89 93 L 07/15/20 15:00 97.8 F 69 18 135/74 98 07/15/20 12:00 124/78 - Problem List & Annotations (1) Gestational hypertension SNOMED Code(s): 854601986 Code(s): O13.9 - GESTATIONAL HTN W/O SIGNIFICANT PROTEINURIA, UNSP TRIMESTER Status: Acute Current Visit: Yes Qualifiers: Trimester: third trimester Qualified Code(s): O13.3 - Gestational [-induced] hypertension without significant proteinuria, third trimester (2) Vaginal delivery SNOMED Code(s): 811185409 Code(s): O80 - ENCOUNTER FOR FULL-TERM UNCOMPLICATED DELIVERY Status: Acute Current Visit: Yes - Problem List Review Problem List Initiated/Reviewed/Updated: Yes - Assessment Assessment:: 29yo PPD1 s/p IOL for gestational hypertension and - Plan Plan:: In to see patient this evening after repeat lab drawn. Patient resting comfortably in bed. Reports mild, dull headache (2/10) which is located over the frontal region. Has had Tylenol with minimal relief earlier today. Denies vision changes or RUQ pain. Offered Benadryl or Fioricet for headache, patient declines at this time. Reviewed labs within normal limits and vital sign stable including normotensive BPs today except for mild BP (130s/90s) at 0700. Tolerating regular diet. Denies fever/chills, nausea/vomiting, severe abdominal pain or diarrhea. Reports some difficulty with . Recommended continued breast pumping q2-3 hours until her milk supply comes in. Questions elicited and answered. Patient encouraged to contact nursing staff if she begins to have any preeclampsia or infectious symptoms. Will see patient in the morning during rounds.
[2020-07-15] MEDS: Sertraline 100 MG Tab PO SCH (23:32)
[2020-07-16 07:47] VITALS: BP 128/78; PULSE 80
--- NOTE | 2020-07-16 08:28 | PCM.PNPP ---
- General Info Date of Service: 07/16/20 Admission Dx/Problem (Free Text): 29yo at 36w6d admitted to [facility] for IOL due to gestational hypertension and history of complicated course including preeclampsia and severe sepsis. Subjective Update: Doing well, no new concerns overnight. Headache has improved overnight. Denies visual changes or right upper quadrant pain. Pain controlled with PO medications. Ambulating and voiding without difficulty. Lochia decreasing. Working on and latch. Currently supplementing with formula. Has been breast pumping as well. - General Info Date of Service: 07/16/20 - Patient Data Vital Signs - Most Recent: Last Vital Signs Temp 97.7 F 07/16/20 07:00 Pulse 80 07/16/20 07:00 Resp 18 07/16/20 07:00 BP 128/78 07/16/20 07:00 Pulse Ox 95 07/16/20 07:00 Weight - Most Recent: 200 lb Lab Results - Last 24 Hours: Laboratory Results - last 24 hr 07/15/20 07/15/20 Range/Units 18:50 18:50 WBC 8.44 (4.0-11.0) K/uL RBC 3.80 L (4.30-5.90) M/uL Hgb 9.8 L (12.0-16.0) g/dL Hct 31.5 L (36.0-46.0) % MCV 82.9 (80.0-98.0) fL MCH 25.8 L (27.0-32.0) pg MCHC 31.1 (31.0-37.0) g/dL RDW Std Deviation 62.4 H (28.0-62.0) fl RDW Coeff of Lucina 21 H (11.0-15.0) % Plt Count 161 (150-400) K/uL MPV 10.40 (7.40-12.00) fL Nucleated RBC % 0.0 /100WBC Nucleated RBCs # 0 K/uL Sodium 134 L (136-145) mmol/L Potassium 3.8 (3.5-5.1) mmol/L Chloride 100 (98-107) mmol/L Carbon Dioxide 24.1 (21.0-32.0) mmol/L BUN 11 (7.0-18.0) mg/dL Creatinine 0.9 (0.6-1.0) mg/dL Est Cr Clr Drug Dosing 82.25 mL/min Estimated GFR (MDRD) > 60.0 ml/min Glucose 112 H (74-106) mg/dL Uric Acid 4.7 (2.6-7.2) mg/dL Calcium 8.3 L (8.5-10.1) mg/dL Total Bilirubin 0.3 (0.2-1.0) mg/dL AST 20 (15-37) IU/L ALT 15 (14-63) IU/L Alkaline Phosphatase 87 (46-116) U/L Total Protein 5.7 L (6.4-8.2) g/dL Albumin 2.4 L (3.4-5.0) g/dL Globulin 3.3 (2.6-4.0) g/dL Albumin/Globulin Ratio 0.7 L (0.9-1.6) Med Orders - Current: Current Medications Acetaminophen (Tylenol) 650 mg PO Q4H PRN PRN Reason: Pain Acetaminophen (Tylenol Extra Strength) 500 mg PO Q4H PRN PRN Reason: Pain Acetaminophen (Tylenol Extra Strength) 1,000 mg PO Q4H PRN PRN Reason: Pain Last Admin: 07/15/20 14:36 Dose: 1,000 mg Documented by: Benzocaine/Menthol (Dermoplast Pain Relief 20%-0.5% [place]) 78 gm TOP ASDIRECTED PRN PRN Reason: Perineal Comfort Measure Last Admin: 07/14/20 14:11 Dose: 1 spray Documented by: Bisacodyl (Dulcolax) 10 mg RECTAL ONETIME PRN PRN Reason: Constipation Docusate Sodium (Colace) 100 mg PO BID PRN PRN Reason: Constipation Last Admin: 07/15/20 08:09 Dose: 100 mg Documented by: Emollient Ointment (Lansinoh Hpa) 0 gm TOP ASDIRECTED PRN PRN Reason: Sore Nipples Last Admin: 07/14/20 14:11 Dose: 7 gm Documented by: Oxytocin/Sodium Chloride (Oxytocin 30 Unit/500 Ml-Ns) 30 unit in 500 mls @ 2 mls/hr IV TITRATE KAILASH; Protocol Last Admin: 07/14/20 13:08 Dose: 999 munits/min, 999 mls/hr Documented by: Lactated Ringer's (Ringers, Lactated) 1,000 mls @ 150 mls/hr IV ASDIRECTED [facility] Last Infusion: 07/14/20 11:36 Dose: 999 mls/hr Documented by: Oxytocin/Sodium Chloride (Oxytocin 30 Unit/500 Ml-Ns) 30 unit in 500 mls @ 2 mls/hr IV TITRATE [facility] Tranexamic Acid 1,000 mg/ (Sodium Chloride) 110 mls @ 660 mls/hr IV ONETIME PRN PRN Reason: Bleeding Ibuprofen (Motrin) 400 mg PO Q4H PRN PRN Reason: Pain Ibuprofen (Motrin) 800 mg PO Q6H PRN PRN Reason: Pain Last Admin: 07/15/20 14:34 Dose: 800 mg Documented by: Lidocaine HCl (Xylocaine 1%) 50 ml INJECT ONETIME PRN PRN Reason: Laceration repair Misoprostol (Cytotec) 25 mcg VAG ONETIME PRN PRN Reason: Cervical Ripening Last Admin: 07/13/20 18:38 Dose: 25 mcg Documented by: Nalbuphine HCl (Nubain) 10 mg IVPUSH Q1H PRN PRN Reason: Pain (severe 7-10) Ondansetron HCl (Zofran) 4 mg IVPUSH Q4H PRN PRN Reason: Nausea/Vomiting Oxycodone HCl (Oxycodone) 5 mg PO Q2H PRN PRN Reason: Pain Sertraline HCl (Zoloft) 100 mg PO BEDTIME [facility] Last Admin: 07/15/20 23:32 Dose: 100 mg Documented by: Sodium Chloride (Saline Flush) 10 ml FLUSH ASDIRECTED PRN PRN Reason: Keep Vein Open Sodium Chloride (Saline Flush) 2.5 ml FLUSH ASDIRECTED PRN PRN Reason: Keep Vein Open Sodium Chloride (Normal Saline) 10 ml IV ASDIRECTED PRN PRN Reason: IV Use Sterile Water (Sterile Water For Irrigation) 1,000 ml IRR ASDIRECTED PRN PRN Reason: delivery Last Admin: 07/14/20 13:12 Dose: 1,000 ml Documented by: Irlanda Aguila (Subha) 1 pad TOP ASDIRECTED PRN PRN Reason: comfort care Last Admin: 07/14/20 14:11 Dose: 1 pack Documented by: Discontinued Medications Butorphanol Tartrate (Stadol) 1 mg IVPUSH Q1H PRN PRN Reason: Pain Carboprost Tromethamine (Hemabate Ds) 250 mcg IM ASDIRECTED PRN PRN Reason: Post Hemorrhage Fentanyl (Sublimaze) Confirm Administered Dose 100 mcg .ROUTE .STK-MED ONE Stop: 07/14/20 09:03 Ropivacaine (Naropin 0.2%) Confirm Administered Dose 100 mls @ as directed .ROUTE .STK-MED ONE Stop: 07/14/20 09:03 Methylergonovine Maleate (Methergine) 0.2 mg IM ASDIRECTED PRN PRN Reason: Post Hemorrhage Misoprostol (Cytotec) 25 mcg VAG Q4H PRN PRN Reason: Cervical Ripening Last Admin: 07/13/20 22:43 Dose: 25 mcg Documented by: Misoprostol (Cytotec) 200 mcg PO ONETIME PRN PRN Reason: Post Hemorrhage Sertraline HCl (Zoloft) 100 mg PO BEDTIME KAILASH Terbutaline Sulfate (Brethine) 0.25 mg SUBCUT ASDIRECTED PRN PRN Reason: Tacysystole - Infant Interaction Infant Disposition, : in Room with Family Support Person: - Recovery Exam Fundal Tone: Firm Fundal Level: 1 Fingerbreadths Below Umbilicus Fundal Placement: Midline Lochia Amount: Scant Lochia Color: Rubra/Red Perineum Description: Other (see below) Other Perinuem Description: 1st degree laceration Episiotomy/Laceration: Approximated Bladder Status: Voiding Urinary Elimination: Voided - Problem List & Annotations (1) Gestational hypertension SNOMED Code(s): 558233895 Code(s): O13.9 - GESTATIONAL HTN W/O SIGNIFICANT PROTEINURIA, UNSP TRIMESTER Status: Acute Current Visit: Yes Qualifiers: Trimester: third trimester Qualified Code(s): O13.3 - Gestational [-induced] hypertension without significant proteinuria, third trimester (2) Vaginal delivery SNOMED Code(s): 057521533 Code(s): O80 - ENCOUNTER FOR FULL-TERM UNCOMPLICATED DELIVERY Status: Acute Current Visit: Yes - Problem List Review Problem List Initiated/Reviewed/Updated: Yes - My Orders Last 24 Hours: My Active Orders 07/16/20 08:27 Ready for Discharge [RC] PER UNIT ROUTINE - Assessment Assessment:: 29yo PPD2 s/p IOL for gestational hypertension and - Plan Plan:: Routine cares * Rh positive, GBS negative * Rubella non-immune; will administer MMR vaccine * Hgb 10.2> 9.9, lochia stable; asymptomatic. * Pain controlled with PO medications * Working on and pumping; supplementing with formula Gestational hypertension * BPs normotensive overnight * VSS, labs stable. * Asymptomatic Dispo: stable. Anticipate discharge today. Discharge instructions discussed at bedside. Recommended taking daily BP at home upon discharge from hospital. Reviewed return precautions including fever/chills, severe headache, visual changes, intractable nausea/vomiting, RUQ pain, severe abdominal pain not controlled by PO medications and heavy vaginal bleeding. Questions elicited and answered. Patient to follow-up at [facility] in 1 week for BP check and 6 weeks for PPV.
[2020-07-16] MEDS: Acetaminophen 500 MG Tab PO PRN (11:44)
[2020-07-16] MEDS: Ibuprofen 800 MG Tab PO PRN (11:44)
[2020-07-16] MEDS: Witch Hazel Medicated Pads 40/Jar TOP PRN (12:21)
[2020-07-16] MEDS: Benzocaine/Menthol 20%-0.5% Spray 78 GM Cannister TOP PRN (12:21)
== END 2020-07-16 13:35 | disposition home or self-care (01) | DRG 807 ==
LOC: MW.OBCHECK 14:49 → MW.OB 16:48 → OBSVTOIN 07-14 13:04 → MW.OB 07-14 16:30
PROVIDERS: ADMIT Obstetrics & Gynecology; ATTEND Obstetrics & Gynecology
PROC: 10E0XZZ Delivery of Products of Conception, External Approach (ICD-10-PCS; principal; 2020-07-14)
PROC: 0HQ9XZZ Repair Perineum Skin, External Approach (ICD-10-PCS; 2020-07-14)
PROC: 3E0R3BZ Introduction of Anesthetic Agent into Spinal Canal, Percutaneous Approach (ICD-10-PCS; 2020-07-14)
PROC: 00HU33Z Insertion of Infusion Device into Spinal Canal, Percutaneous Approach (ICD-10-PCS; 2020-07-14)
DX: O13.4 Gestational [pregnancy-induced] hypertension without significant proteinuria, complicating childbirth (principal); Z3A.37 37 weeks gestation of pregnancy; Z37.0 Single live birth; O69.81X0 Labor and delivery complicated by cord around neck, without compression, not applicable or unspecified; Z20.828 Contact with and (suspected) exposure to other viral communicable diseases; O70.0 First degree perineal laceration during delivery
CPT/HCPCS: 01967; 36415; 51702; 59025; 59409; 76819; 76819-26; 80053; 82570; 82803; 84156; 84550; 85025; 85027; 86592; 86850; 86900; 86901; 88307; A9270-GY; J2590; J2795; J3010; J7120; U0002

== ENCOUNTER 2024-11-10 15:55 | Observation (INO) | payer BC ==
[2024-11-10] MEDS: Acetaminophen 500 MG Tab PO ONE (17:25)
[2024-11-10 17:39] LABS: HEMATOCRIT 35.6 % (37.0-47.0); HEMOGLOBIN 11.7 g/dL (12.0-16.0); MEAN CORPUSCULAR HEMOGLOBIN 27.3 pg (28.0-32.0); MEAN CORPUSCULAR HGB CONC 32.9 g/dL (32.0-36.0); MEAN CORPUSCULAR VOLUME 83.2 fL (83.0-99.0); MEAN PLATELET VOLUME 10.9 fL (9.4-12.3); PLATELET COUNT,PLT 199 K/uL (150-400); RED BLOOD CELL COUNT 4.28 M/uL (4.10-5.30); WHITE BLOOD CELL COUNT,WBC 10.88 K/uL (3.9-11.3)
[2024-11-10 17:44] LABS: APPEARANCE,URINE SLT CLOUDY; BILIRUBIN,URINE NEGATIVE (NEGATIVE); COLOR,URINE YELLOW; GLUCOSE,URINE NEGATIVE (NEGATIVE); KETONES,URINE TRACE mg/dL (NEGATIVE); LEUKOCYTE ESTERASE,URINE TRACE (NEGATIVE); NITRITE,URINE NEGATIVE (NEGATIVE); OCCULT BLOOD,URINE NEGATIVE (NEGATIVE); PROTEIN,URINE 30 mg/dL (NEGATIVE); UROBILINOGEN,URINE 0.2 EU/dL (<2.0)
[2024-11-10] MEDS ORDERED: Acetaminophen 325 MG Tab PO PRN (17:57)
[2024-11-10] MEDS ORDERED: hydrOXYzine HCl 25 MG Tab PO PRN (17:57)
[2024-11-10] MEDS ORDERED: Aluminum Hydroxide/Magnesium Hydroxide/Simethicone Susp 30 ML Cup PO PRN (17:57)
[2024-11-10 17:59] LABS: BACTERIA,URINE 2+ (NEGATIVE); EPITHELIAL CELLS,URINE MANY (NONE-FEW); RBC,URINE 0-2 (0-2/HPF)
[2024-11-10 18:08] LABS: A/G RATIO 0.7 (0.9-1.6); ALBUMIN 2.7 g/dL (3.4-5.0); BILIRUBIN TOTAL 0.4 mg/dL (0.2-1.0); CALCIUM 8.9 mg/dL (8.5-10.1); CARBON DIOXIDE,CO2 23.8 mmol/L (21.0-32.0); CREATININE 0.7 mg/dL (0.6-1.0); EST CRCL DRUG DOSING (CG) 100.94 mL/min; PROTEIN TOTAL,TP 6.6 g/dL (6.4-8.2); URIC ACID 4.8 mg/dL (2.6-7.2)
[2024-11-10 18:18] LABS: CREATININE,URINE RAND 267.8 mg/dL; PROTEIN CREATININE RATIO,URINE 0.3; PROTEIN,URINE RANDOM 68.8 mg/dL (<11.9)
[2024-11-10] MEDS: Sertraline 100 MG Tab PO SCH (21:25)
[2024-11-11 05:45] LABS: HEMATOCRIT 33.1 % (37.0-47.0); HEMOGLOBIN 10.7 g/dL (12.0-16.0); MEAN CORPUSCULAR HGB CONC 32.3 g/dL (32.0-36.0); MEAN CORPUSCULAR VOLUME 83.4 fL (83.0-99.0); MEAN PLATELET VOLUME 10.8 fL (9.4-12.3); PLATELET COUNT,PLT 190 K/uL (150-400); RED BLOOD CELL COUNT 3.97 M/uL (4.10-5.30); WHITE BLOOD CELL COUNT,WBC 12.04 K/uL (3.9-11.3)
[2024-11-11 06:08] LABS: CREATININE,URINE RAND 69.1 mg/dL; PROTEIN CREATININE RATIO,URINE 0.5
[2024-11-11 06:25] LABS: A/G RATIO 0.7 (0.9-1.6); ALBUMIN 2.5 g/dL (3.4-5.0); BILIRUBIN TOTAL 0.3 mg/dL (0.2-1.0); CALCIUM 8.5 mg/dL (8.5-10.1); CARBON DIOXIDE,CO2 21.4 mmol/L (21.0-32.0); CREATININE 0.8 mg/dL (0.6-1.0); EST CRCL DRUG DOSING (CG) 88.32 mL/min; POTASSIUM,K 4.3 mmol/L (3.5-5.1); PROTEIN TOTAL,TP 6.1 g/dL (6.4-8.2)
== END 2024-11-11 11:42 | disposition home or self-care (01) ==
LOC: MW.OBCHECK 15:55 → MW.OB 15:55 → MW.OBCHECK 17:56 → MW.OB 17:57
PROVIDERS: ADMIT Obstetrics & Gynecology; ATTEND Obstetrics & Gynecology
DX: O14.03 Mild to moderate pre-eclampsia, third trimester (principal); Z3A.35 35 weeks gestation of pregnancy
CPT/HCPCS: 36415; 59025; 80053; 81001; 82570; 84156; 84550; 85027; A9270; G0378

== ENCOUNTER 2024-11-19 22:02 | Inpatient (IN) | payer BC ==
[2024-11-19] MEDS ORDERED: Butorphanol 2 MG/ML SDV IVPUSH PRN (22:12)
[2024-11-19] MEDS ORDERED: Water For Irrigation,Sterile 1,000 ML Container IRR PRN (22:12)
[2024-11-19] MEDS ORDERED: Terbutaline 1 MG/ML SDV SUBCUT PRN (22:12)
[2024-11-19] MEDS ORDERED: Ondansetron 4 MG/2 ML SDV IVPUSH PRN (22:12)
[2024-11-19] MEDS ORDERED: Misoprostol 200 MCG Tab PO PRN (22:12)
[2024-11-19] MEDS ORDERED: Sodium Chloride 0.9% 20 ML SDV IV PRN (22:12)
[2024-11-19] MEDS ORDERED: Lidocaine 1% 50 ML MDV INJECT PRN (22:12)
[2024-11-19] MEDS ORDERED: Sodium Chloride 0.9% 10 ML Syringe FLUSH PRN (22:12)
[2024-11-19] MEDS ORDERED: Sodium Chloride 0.9% 2.5 ML Syringe FLUSH PRN (22:12)
[2024-11-19] MEDS ORDERED: Methylergonovine 0.2 MG/1 ML Amp IM PRN (22:12)
[2024-11-19] MEDS ORDERED: Carboprost Tromethamine 250 MCG/1 mL Vial IM PRN (22:12)
[2024-11-19] MEDS ORDERED: Tranexamic Acid in NACL,ISO-OS 1,000 MG in Premix Bag 1 BAG IV PRN (22:12)
[2024-11-19] MEDS ORDERED: Oxytocin/0.9 % Sodium Chloride 30 UNIT/500 ML BAG IV SCH (22:15)
[2024-11-19 23:48] LABS: CREATININE,URINE RAND 131.1 mg/dL; PROTEIN,URINE RANDOM 127.6 mg/dL (<11.9)
[2024-11-19 23:59] LABS: HEMATOCRIT 33.5 % (37.0-47.0); HEMOGLOBIN 11.3 g/dL (12.0-16.0); MEAN CORPUSCULAR HEMOGLOBIN 27.5 pg (28.0-32.0); MEAN CORPUSCULAR HGB CONC 33.7 g/dL (32.0-36.0); MEAN CORPUSCULAR VOLUME 81.5 fL (83.0-99.0); MEAN PLATELET VOLUME 10.7 fL (9.4-12.3); PLATELET COUNT,PLT 168 K/uL (150-400); RED BLOOD CELL COUNT 4.11 M/uL (4.10-5.30); WHITE BLOOD CELL COUNT,WBC 7.06 K/uL (3.9-11.3)
[2024-11-20] MEDS: Misoprostol 25 MCG (1/4 of 100 MCG) Tab VAG PRN (00:06)
[2024-11-20] MEDS ORDERED: ePHEDrine 50 MG/ML SDV IVPUSH PRN (00:36)
[2024-11-20] MEDS ORDERED: Phenylephrine HCl In 0.9% NaCl 1 MG/10 ML Syringe IVPUSH PRN (00:36)
[2024-11-20 00:44] LABS: A/G RATIO 0.6 (0.9-1.6); ALBUMIN 2.3 g/dL (3.4-5.0); BILIRUBIN TOTAL 0.3 mg/dL (0.2-1.0); CALCIUM 8.3 mg/dL (8.5-10.1); CARBON DIOXIDE,CO2 23.3 mmol/L (21.0-32.0); CREATININE 0.6 mg/dL (0.6-1.0); EST CRCL DRUG DOSING (CG) 117.76 mL/min; PROTEIN TOTAL,TP 6.3 g/dL (6.4-8.2)
[2024-11-20] MEDS ORDERED: dexmedeTOMIDine HCl 200 MCG/2 ML SDV EPIDUR SCH (00:45)
[2024-11-20] MEDS: Acetaminophen 500 MG Tab PO PRN ×2 (05:28→16:51)
[2024-11-20] MEDS: Lactated Ringers 1,000 ML IV SCH (09:56)
[2024-11-20] MEDS: Oxytocin/0.9 % Sodium Chloride 30 UNIT/500 ML BAG IV SCH (09:59)
[2024-11-20] MEDS: Ropivacaine HCl/PF 400 MG in Premix Bag 1 BAG EPIDUR SCH (11:48)
[2024-11-20] MEDS ORDERED: oxyCODONE 5 MG Tab PO PRN (15:19)
[2024-11-20] MEDS ORDERED: Lanolin 100% Cream 7 GM Tube TOP PRN (15:19)
[2024-11-20 15:32] LABS: PH,UMBILICAL ARTERIAL 7.298 (7.18-7.38); PH,UMBILICAL VENOUS 7.319 (7.25-7.45)
[2024-11-20] MEDS: Ibuprofen 800 MG Tab PO PRN (16:51)
[2024-11-20] MEDS: Witch Hazel Medicated Pads 40/Jar TOP PRN (16:52)
[2024-11-20] MEDS: Benzocaine/Menthol 20%-0.5% Spray 78 GM Cannister TOP PRN (16:52)
[2024-11-21 04:54] LABS: HEMATOCRIT 33.7 % (37.0-47.0); HEMOGLOBIN 10.9 g/dL (12.0-16.0); MEAN CORPUSCULAR HEMOGLOBIN 26.8 pg (28.0-32.0); MEAN CORPUSCULAR HGB CONC 32.3 g/dL (32.0-36.0); MEAN PLATELET VOLUME 10.7 fL (9.4-12.3); PLATELET COUNT,PLT 147 K/uL (150-400); RED BLOOD CELL COUNT 4.06 M/uL (4.10-5.30); WHITE BLOOD CELL COUNT,WBC 8.71 K/uL (3.9-11.3)
[2024-11-21 05:19] LABS: A/G RATIO 0.6 (0.9-1.6); BILIRUBIN TOTAL 0.3 mg/dL (0.2-1.0); CALCIUM 7.9 mg/dL (8.5-10.1); CARBON DIOXIDE,CO2 25.3 mmol/L (21.0-32.0); CREATININE 0.7 mg/dL (0.6-1.0); EST CRCL DRUG DOSING (CG) 100.94 mL/min; POTASSIUM,K 4.7 mmol/L (3.5-5.1); PROTEIN TOTAL,TP 5.5 g/dL (6.4-8.2)
[2024-11-21] MEDS: NIFEdipine 30 MG Tab.ER PO SCH (09:11)
[2024-11-21] MEDS: Docusate Sodium 100 MG Cap PO PRN (09:12)
[2024-11-21 20:24] VITALS: BP 141/87; PULSE 91
== END 2024-11-21 20:25 | disposition home or self-care (01) | DRG 560 ==
LOC: MW.OB 22:02 → OBSVTOIN 11-20 15:19 → MW.OB 11-20 18:32
PROVIDERS: ADMIT Obstetrics & Gynecology; ATTEND Obstetrics & Gynecology
PROC: 10E0XZZ Delivery of Products of Conception, External Approach (ICD-10-PCS; principal; 2024-11-20)
PROC: 10907ZC Drainage of Amniotic Fluid, Therapeutic from Products of Conception, Via Natural or Artificial Opening (ICD-10-PCS; 2024-11-20)
PROC: 3E033VJ Introduction of Other Hormone into Peripheral Vein, Percutaneous Approach (ICD-10-PCS; 2024-11-20)
DX: O14.94 Unspecified pre-eclampsia, complicating childbirth (principal); Z37.0 Single live birth; O99.344 Other mental disorders complicating childbirth; F41.9 Anxiety disorder, unspecified; Z3A.37 37 weeks gestation of pregnancy
CPT/HCPCS: 36415; 59025; 59409; 80053; 82570; 82803; 84156; 85027; 86592; 86850; 86900; 86901; A9270-GY; J2590; J2795; J7120